=== PATIENT | male | born 1955 | race Caucasian/White ===

== ENCOUNTER 2017-08-13 16:23 | Emergency (ER) | payer MEDICAID ==
[~2017-08-13] VITALS: Ht 177.8 cm; Wt 59.1 kg
[~2017-08-13 16:23] MED LIST: ALBU8HFA PO; ASPI81TA52 PO; FOLI-43 PO; HYDR-569 PO; LOP25T PO; OXCA600T5 PO; PHEN30TA41 PO; PHEN32.43 PO
[2017-08-13 16:57] VITALS: BP 92/64
[2017-08-13] MEDS ORDERED: BUPIVAcaine/PF 2.5 mg/ml (0.25%) 30ml vial IJ ONE (18:30)
[2017-08-13] MEDS ORDERED: DOXY100T2 PO (19:02)
== END 2017-08-13 19:34 | disposition home or self-care (01) ==
LOC: ER 16:23
DX: L02.01 Cutaneous abscess of face (principal); Z86.73 Personal history of transient ischemic attack (TIA), and cerebral infarction without residual deficits; Z79.82 Long term (current) use of aspirin; Z79.899 Other long term (current) drug therapy
CPT/HCPCS: 10060; 99283; A6266; A6449; J3490

== ENCOUNTER 2017-08-16 19:04 | Emergency (ER) | payer MEDICAID ==
[~2017-08-16] VITALS: Ht 177.8 cm; Wt 61.9 kg
[~2017-08-16 19:04] MED LIST changes: +DOXY100T2 PO; -HYDR-569 PO
[2017-08-16] MEDS ORDERED: BACI1PAC7 TOP (19:43)
[2017-08-16] MEDS ORDERED: SULF1TAB49 PO (19:43)
[2017-08-16] MEDS ORDERED: CEPH500C5 PO (19:43)
[2017-08-16] MEDS ORDERED: ketorolac trometh. 30mg/ml inj. IM ONE (19:45)
[2017-08-16 20:04] VITALS: BP 118/58
== END 2017-08-16 20:06 | disposition home or self-care (01) ==
LOC: ER 19:05
DX: Z48.01 Encounter for change or removal of surgical wound dressing (principal); L02.01 Cutaneous abscess of face; F17.210 Nicotine dependence, cigarettes, uncomplicated; Z86.73 Personal history of transient ischemic attack (TIA), and cerebral infarction without residual deficits; Z79.82 Long term (current) use of aspirin; Z79.899 Other long term (current) drug therapy
CPT/HCPCS: 96372; 99283; A6255; A6257; A6266; A6449; J1885

== ENCOUNTER 2019-05-16 14:46 | Emergency (ER) | payer MEDICAID ==
[~2019-05-16] VITALS: Ht 175.3 cm; Wt 64.0 kg
[~2019-05-16 14:46] MED LIST changes: +ALBU0.63 NEB; +LIDOcaine 1% W/epiNEPHrine 1:100,000 20ml vial ONE; +MELO-102 PO; -PHEN32.43 PO
[2019-05-16 15:00] VITALS: BP 115/80
[2019-05-16] MEDS ORDERED: HYDROcodone/acetaminophen 5mg/325mg tablet PO ONE (16:55)
[2019-05-16] MEDS ORDERED: ondansetron 4mg rapidly disintigrating tab PO ONE (16:55)
[2019-05-16] MEDS ORDERED: BACDS PO (17:25)
== END 2019-05-16 17:31 | disposition home or self-care (01) ==
LOC: ER 14:47
DX: L02.01 Cutaneous abscess of face (principal); F03.90 Unspecified dementia, unspecified severity, without behavioral disturbance, psychotic disturbance, mood disturbance, and anxiety; F10.99 Alcohol use, unspecified with unspecified alcohol-induced disorder; Z86.69 Personal history of other diseases of the nervous system and sense organs; Z86.73 Personal history of transient ischemic attack (TIA), and cerebral infarction without residual deficits; Z79.82 Long term (current) use of aspirin; Z79.899 Other long term (current) drug therapy; Y90.9 Presence of alcohol in blood, level not specified
CPT/HCPCS: 10060; 99283

== ENCOUNTER 2019-10-28 17:42 | Emergency (ER) | payer MEDICAID ==
[~2019-10-28] VITALS: Ht 177.8 cm; Wt 72.7 kg
[~2019-10-28 17:42] MED LIST changes: -LIDOcaine 1% W/epiNEPHrine 1:100,000 20ml vial ONE
[2019-10-28 18:29] LABS: BASOPHILS # (AUTO) 0.1 X10'3 (0-0.2); EOSINOPHILS # (AUTO) 0.4 X10'3 (0-0.9); HEMATOCRIT 39.8 % (42.0-52.0); HEMOGLOBIN 13.4 g/dl (14.0-17.9); LYMPHOCYTES # (AUTO) 1.9 X10'3 (1.1-4.8); LYMPHOCYTES % (AUTO) 37.1 % (21-51); MEAN CORPUSCULAR HEMOGLOBIN 32.3 PG (27.0-31.0); MEAN CORPUSCULAR HGB CONC 33.8 g/dL (33.0-36.5); MEAN CORPUSCULAR VOLUME 95.5 FL (78-98); MEAN PLATELET VOLUME 7.1 FL (7.4-10.4); MONOCYTES # (AUTO) 0.5 X10'3 (0-0.9); MONOCYTES % (AUTO) 8.9 % (2-12); NEUTROPHILS # (AUTO) 2.3 X10'3 (1.8-7.7); PLATELET COUNT 269 X10'3 (140-440); RED BLOOD COUNT 4.16 X10'6 (4.70-6.10); RED CELL DISTRIBUTION WIDTH 13.3 % (11.5-14.5); WHITE BLOOD COUNT 5.1 X10'3 (4.5-11.0)
[2019-10-28] MEDS ORDERED: normal saline 1000ml 1,000 ML IV ONE ×2 (18:35→18:50)
[2019-10-28 18:41] LABS: PARTIAL THROMBOPLASTIN TIME 28 SECONDS (22-32)
[2019-10-28 18:45] LABS: ALANINE AMINOTRANSFERASE 15 U/L (12-78); ALBUMIN 3.3 G/DL (3.4-5.0); ALBUMIN/GLOBULIN RATIO 0.8 (1.1-1.5); ALKALINE PHOSPHATASE 114 IU/L (46-116); ANION GAP 5 (8-16); ASPARTATE AMINO TRANSFERASE 14 U/L (10-37); BILIRUBIN,TOTAL 0.1 MG/DL (0.1-1.0); BLOOD UREA NITROGEN 19 MG/DL (7-18); BUN/CREATININE RATIO 22.4 (5.4-32.0); CALCIUM 8.8 MG/DL (8.5-10.1); CHLORIDE 107 MMOL/L (99-107); CREATININE 0.85 MG/DL (0.60-1.10); GLUCOSE 134 MG/DL (70-104); POTASSIUM 4.2 MMOL/L (3.5-5.1); SODIUM 142 MMOL/L (135-145); TOTAL CARBON DIOXIDE 30.3 MMOL/L (24-32); TOTAL PROTEIN 7.5 G/DL (6.4-8.2); eGFR > 90 ML/MIN
[2019-10-28 18:48] LABS: TROPONIN I < 0.04 NG/ML (0.0-0.05)
[2019-10-28] MEDS ORDERED: ketorolac tromethamine 15mg/ml inj. IV ONE (19:15)
[2019-10-28 19:49] LABS: CLARITY,URINE CLEAR (Clear); COLOR,URINE YELLOW (Yellow); GLUCOSE, URINE NEGATIVE (Neg); KETONES,URINE NEGATIVE (Neg); LEUKOCYTE ESTERASE ,URINE NEGATIVE (Neg); NITRITES, URINE NEGATIVE (Neg); OCCULT BLOOD,URINE NEGATIVE (Neg); PROTEIN,URINE NEGATIVE (Neg); UROBILINOGEN,URINE 0.2 E.U/dL (0.2-1.0)
[2019-10-28 19:50] LABS: UA COLLECTION TYPE URINAL
[2019-10-28 19:52] LABS: URINE AMPHETAMINE SCREEN NEGATIVE (Neg); URINE BARBITUATE SCREEN POSITIVE (Neg); URINE BENZODIAZEPINES SCREEN NEGATIVE (Neg); URINE CANNABINOID SCREEN NEGATIVE (Neg); URINE COCAINE SCREEN NEGATIVE (Neg); URINE METHADONE SCREEN NEGATIVE (Neg); URINE OPIATE SCREEN NEGATIVE (Neg); URINE PHENCYCLIDINE SCREEN NEGATIVE (Neg)
[2019-10-28 20:33] VITALS: BP 128/73
== END 2019-10-28 20:57 | disposition home or self-care (01) ==
LOC: ER 17:42
DX: R53.1 Weakness (principal); R51 Headache; R10.9 Unspecified abdominal pain; M54.9 Dorsalgia, unspecified; F03.90 Unspecified dementia, unspecified severity, without behavioral disturbance, psychotic disturbance, mood disturbance, and anxiety; Z86.69 Personal history of other diseases of the nervous system and sense organs; Z86.73 Personal history of transient ischemic attack (TIA), and cerebral infarction without residual deficits; Z79.82 Long term (current) use of aspirin; Z79.899 Other long term (current) drug therapy
CPT/HCPCS: 36415; 70450; 71045; 80053; 80305; 81003; 82948; 83605; 84145; 84484; 85025; 85610; 85730; 87040; 93005; 96374; 99285; J1885; J7030

== ENCOUNTER 2019-11-12 15:55 | Emergency (ER) | payer MEDICAID ==
[~2019-11-12] VITALS: Ht 177.8 cm; Wt 63.0 kg
[2019-11-12 19:43] VITALS: BP 159/66
== END 2019-11-12 20:05 | disposition home or self-care (01) ==
LOC: ER 15:55
DX: M54.5 Low back pain (principal); F03.90 Unspecified dementia, unspecified severity, without behavioral disturbance, psychotic disturbance, mood disturbance, and anxiety; Z86.73 Personal history of transient ischemic attack (TIA), and cerebral infarction without residual deficits; Z79.82 Long term (current) use of aspirin; M54.6 Pain in thoracic spine; Z79.899 Other long term (current) drug therapy; W01.0XXA Fall on same level from slipping, tripping and stumbling without subsequent striking against object, initial encounter; Y93.89 Activity, other specified; Y92.098 Other place in other non-institutional residence as the place of occurrence of the external cause; Y99.9 Unspecified external cause status
CPT/HCPCS: 72128; 72131; 99285

== ENCOUNTER 2020-08-29 17:01 | Emergency (ER) | payer MEDICAID ==
[~2020-08-29] VITALS: Ht 177.8 cm; Wt 61.4 kg
[2020-08-29 17:23] VITALS: BP 138/82
[2020-08-29] MEDS ORDERED: ibuprofen tablet 400 MG TABLET PO ONE (18:55)
--- NOTE | 2020-08-29 19:35 | NUR ---
BREAKING PRIMARY RN- WILL CONT TO MONITOR
[2020-08-29] MEDS ORDERED: HYDROcodone/acetaminophen 5mg/325mg tablet PO ONE (20:00)
== END 2020-08-29 20:25 | disposition home or self-care (01) ==
LOC: ER 17:02
DX: S30.0XXA Contusion of lower back and pelvis, initial encounter (principal); M25.552 Pain in left hip; Z86.73 Personal history of transient ischemic attack (TIA), and cerebral infarction without residual deficits; Z86.69 Personal history of other diseases of the nervous system and sense organs; Z72.89 Other problems related to lifestyle; Z79.82 Long term (current) use of aspirin; Z79.899 Other long term (current) drug therapy; W18.39XA Other fall on same level, initial encounter; Y93.89 Activity, other specified; Y92.89 Other specified places as the place of occurrence of the external cause; Y99.8 Other external cause status
CPT/HCPCS: 73502; 99284

== ENCOUNTER 2021-01-28 15:41 | Emergency (ER) | payer MEDICAID ==
[~2021-01-28] VITALS: Ht 177.8 cm; Wt 65.9 kg
[2021-01-28 17:17] LABS: BASOPHILS # (AUTO) 0.1 X10'3 (0-0.2); EOSINOPHILS # (AUTO) 0.2 X10'3 (0-0.9); EOSINOPHILS % (AUTO) 4.3 % (0-6); HEMATOCRIT 38.6 % (42.0-52.0); HEMOGLOBIN 12.9 g/dl (14.0-17.9); LYMPHOCYTES # (AUTO) 1.6 X10'3 (1.1-4.8); LYMPHOCYTES % (AUTO) 27.5 % (21-51); MEAN CORPUSCULAR HEMOGLOBIN 32.6 PG (27.0-31.0); MEAN CORPUSCULAR HGB CONC 33.5 g/dL (33.0-36.5); MEAN CORPUSCULAR VOLUME 97.4 FL (78-98); MEAN PLATELET VOLUME 7.5 FL (7.4-10.4); MONOCYTES # (AUTO) 0.5 X10'3 (0-0.9); NEUTROPHILS # (AUTO) 3.3 X10'3 (1.8-7.7); NEUTROPHILS % (AUTO) 58.2 % (42-75); PLATELET COUNT 266 X10'3 (140-440); RED BLOOD COUNT 3.97 X10'6 (4.70-6.10); RED CELL DISTRIBUTION WIDTH 14.4 % (11.5-14.5); WHITE BLOOD COUNT 5.7 X10'3 (4.5-11.0)
[2021-01-28 17:27] LABS: ALANINE AMINOTRANSFERASE 12 U/L (12-78); ALBUMIN 3.5 G/DL (3.4-5.0); ALBUMIN/GLOBULIN RATIO 0.9 (1.1-1.5); ALKALINE PHOSPHATASE 143 IU/L (46-116); ANION GAP 9 (8-16); ASPARTATE AMINO TRANSFERASE 15 U/L (10-37); BILIRUBIN,TOTAL 0.1 MG/DL (0.1-1.0); BLOOD UREA NITROGEN 20 MG/DL (7-18); BUN/CREATININE RATIO 30.8 (5.4-32.0); CALCIUM 8.5 MG/DL (8.5-10.1); CHLORIDE 106 MMOL/L (99-107); CREATININE 0.65 MG/DL (0.60-1.10); GLUCOSE 121 MG/DL (70-104); POTASSIUM 4.2 MMOL/L (3.5-5.1); SODIUM 141 MMOL/L (135-145); TOTAL CARBON DIOXIDE 26.4 MMOL/L (24-32); TOTAL PROTEIN 7.6 G/DL (6.4-8.2); eGFR > 90 ML/MIN
[2021-01-28] MEDS ORDERED: normal saline 1000ML IV soln IVB ONE (19:10)
[2021-01-28] MEDS ORDERED: acetaminophen 325mg tablet PO ONE (19:20)
[2021-01-28] MEDS ORDERED: ketorolac tromethamine 15mg/ml inj. IV ONE (19:20)
[2021-01-28 21:11] VITALS: BP 137/87
== END 2021-01-28 21:23 | disposition home or self-care (01) ==
LOC: ER 15:42
DX: E86.0 Dehydration (principal); M79.605 Pain in left leg; M54.89 Other dorsalgia; Z86.73 Personal history of transient ischemic attack (TIA), and cerebral infarction without residual deficits; Z86.69 Personal history of other diseases of the nervous system and sense organs; Z72.89 Other problems related to lifestyle; Z79.82 Long term (current) use of aspirin; Z79.2 Long term (current) use of antibiotics; Z79.899 Other long term (current) drug therapy
CPT/HCPCS: 36415; 71045; 80053; 83605; 84145; 85025; 93005; 96361; 96374; 99285; J1885; J7030

== ENCOUNTER 2021-04-23 14:22 | Emergency (ER) | payer MEDICARE, MEDICAID ==
[~2021-04-23] VITALS: Ht 177.8 cm; Wt 60.4 kg
[~2021-04-23 14:22] MED LIST changes: -PHEN30TA41 PO; +PHEN30TA49 PO
[2021-04-23 15:49] LABS: BASOPHILS # (AUTO) 0.1 X10'3 (0-0.2); BASOPHILS % (AUTO) 0.6 % (0-1); EOSINOPHILS # (AUTO) 0.2 X10'3 (0-0.9); EOSINOPHILS % (AUTO) 2.9 % (0-6); HEMOGLOBIN 12.9 g/dl (14.0-17.9); LYMPHOCYTES # (AUTO) 1.7 X10'3 (1.1-4.8); LYMPHOCYTES % (AUTO) 20.8 % (21-51); MEAN CORPUSCULAR HEMOGLOBIN 32.5 PG (27.0-31.0); MEAN CORPUSCULAR VOLUME 95.6 FL (78-98); MEAN PLATELET VOLUME 7.5 FL (7.4-10.4); MONOCYTES # (AUTO) 0.5 X10'3 (0-0.9); MONOCYTES % (AUTO) 6.2 % (2-12); NEUTROPHILS # (AUTO) 5.7 X10'3 (1.8-7.7); NEUTROPHILS % (AUTO) 69.5 % (42-75); PLATELET COUNT 296 X10'3 (140-440); RED BLOOD COUNT 3.97 X10'6 (4.70-6.10); RED CELL DISTRIBUTION WIDTH 12.7 % (11.5-14.5); WHITE BLOOD COUNT 8.1 X10'3 (4.5-11.0)
[2021-04-23 16:02] LABS: ALANINE AMINOTRANSFERASE 34 U/L (12-78); ALBUMIN 3.2 G/DL (3.4-5.0); ALBUMIN/GLOBULIN RATIO 0.6 (1.1-1.5); ALKALINE PHOSPHATASE 146 IU/L (46-116); ANION GAP 11 (8-16); ASPARTATE AMINO TRANSFERASE 24 U/L (10-37); BILIRUBIN,TOTAL 0.2 MG/DL (0.1-1.0); BLOOD UREA NITROGEN 21 MG/DL (7-18); BUN/CREATININE RATIO 28.4 (5.4-32.0); CALCIUM 8.9 MG/DL (8.5-10.1); CHLORIDE 106 MMOL/L (99-107); CREATININE 0.74 MG/DL (0.60-1.10); GLUCOSE 88 MG/DL (70-104); SODIUM 145 MMOL/L (135-145); TOTAL CARBON DIOXIDE 27.6 MMOL/L (24-32); TOTAL PROTEIN 8.3 G/DL (6.4-8.2); eGFR > 90 ML/MIN
--- NOTE | 2021-04-23 18:26 | NUR ---
bety wallis pt sister and also [facility] [phone]
--- NOTE | 2021-04-23 18:50 | NUR ---
ASSUMED CARE. PT SHOWS NO S/S OF ACUTE DISTRESS AT THIS TIME. PT WAS FOUND STANDING IN DOORWAY AND ASSISTED BACK TO BED AND GIVEN CALL LIGHT.
[2021-04-23 18:55] VITALS: BP 116/80
--- NOTE | 2021-04-23 19:31 | NUR ---
PT PUPILS REMAIN PINPOINT W/ NO MOVEMENT. WILL TO CONT TO EVALUATE
[2021-04-23 19:36] LABS: URINE AMPHETAMINE SCREEN NEGATIVE (Neg); URINE BARBITUATE SCREEN POSITIVE (Neg); URINE BENZODIAZEPINES SCREEN NEGATIVE (Neg); URINE CANNABINOID SCREEN NEGATIVE (Neg); URINE COCAINE SCREEN NEGATIVE (Neg); URINE METHADONE SCREEN NEGATIVE (Neg); URINE OPIATE SCREEN POSITIVE (Neg); URINE PHENCYCLIDINE SCREEN NEGATIVE (Neg)
[2021-04-23 19:40] LABS: UA COLLECTION TYPE NON-SPECIFIED
[2021-04-23 19:43] LABS: CLARITY,URINE CLEAR (Clear); COLOR,URINE YELLOW (Yellow)
[2021-04-23 19:49] LABS: GLUCOSE, URINE NEGATIVE (Neg); KETONES,URINE TRACE mg/dl (Neg); LEUKOCYTE ESTERASE ,URINE NEGATIVE (Neg); NITRITES, URINE NEGATIVE (Neg); OCCULT BLOOD,URINE NEGATIVE (Neg); PROTEIN,URINE TRACE mg/dl (Neg); UROBILINOGEN,URINE 0.2 E.U/dL (0.2-1.0)
[2021-04-23 19:51] LABS: MUCUS STRANDS MODERATE /LPF (Neg); SQUAMOUS EPITHELIAL CELL,UR FEW /LPF (FEW); WBC,URINE 0-4 /HPF (0-4)
[2021-04-23 19:53] LABS: BACTERIA,URINE FEW /HPF (Neg)
== END 2021-04-23 20:24 | disposition home or self-care (01) ==
LOC: ER 14:23
DX: S09.90XA Unspecified injury of head, initial encounter (principal); Z86.73 Personal history of transient ischemic attack (TIA), and cerebral infarction without residual deficits; Z86.69 Personal history of other diseases of the nervous system and sense organs; Z72.89 Other problems related to lifestyle; Z79.2 Long term (current) use of antibiotics; Z79.82 Long term (current) use of aspirin; Z79.899 Other long term (current) drug therapy; W18.30XA Fall on same level, unspecified, initial encounter; Y93.89 Activity, other specified; Y92.89 Other specified places as the place of occurrence of the external cause; Y99.8 Other external cause status
CPT/HCPCS: 36415; 70450; 71045; 72125; 80053; 80305; 81001; 85025; 93005; 99285

== ENCOUNTER 2021-05-20 00:10 | Emergency (ER) | payer MEDICARE, MEDICAID ==
[~2021-05-20] VITALS: Ht 180.3 cm; Wt 72.7 kg
[2021-05-20] MEDS ORDERED: normal saline 1000ML IV soln IVB ONE (01:40)
[2021-05-20 02:30] LABS: BASOPHILS % (AUTO) 0.7 % (0-1); EOSINOPHILS # (AUTO) 0.1 X10'3 (0-0.9); EOSINOPHILS % (AUTO) 1.2 % (0-6); HEMOGLOBIN 11.3 g/dl (14.0-17.9); LYMPHOCYTES # (AUTO) 1.1 X10'3 (1.1-4.8); LYMPHOCYTES % (AUTO) 15.2 % (21-51); MEAN CORPUSCULAR HGB CONC 34.1 g/dL (33.0-36.5); MEAN CORPUSCULAR VOLUME 93.8 FL (78-98); MONOCYTES # (AUTO) 0.7 X10'3 (0-0.9); MONOCYTES % (AUTO) 10.4 % (2-12); NEUTROPHILS # (AUTO) 5.2 X10'3 (1.8-7.7); NEUTROPHILS % (AUTO) 72.5 % (42-75); PLATELET COUNT 545 X10'3 (140-440); RED BLOOD COUNT 3.52 X10'6 (4.70-6.10); RED CELL DISTRIBUTION WIDTH 13.7 % (11.5-14.5); WHITE BLOOD COUNT 7.1 X10'3 (4.5-11.0)
[2021-05-20 02:45] LABS: ALANINE AMINOTRANSFERASE 24 U/L (12-78); ALBUMIN/GLOBULIN RATIO 0.4 (1.1-1.5); ALKALINE PHOSPHATASE 107 IU/L (46-116); ANION GAP 5 (8-16); ASPARTATE AMINO TRANSFERASE 23 U/L (10-37); BILIRUBIN,TOTAL 0.3 MG/DL (0.1-1.0); BLOOD UREA NITROGEN 12 MG/DL (7-18); BUN/CREATININE RATIO 17.4 (5.4-32.0); CALCIUM 8.1 MG/DL (8.5-10.1); CHLORIDE 106 MMOL/L (99-107); CREATININE 0.69 MG/DL (0.60-1.10); GLUCOSE 110 MG/DL (70-104); POTASSIUM 3.3 MMOL/L (3.5-5.1); SODIUM 142 MMOL/L (135-145); TOTAL CARBON DIOXIDE 30.9 MMOL/L (24-32); TOTAL PROTEIN 7.2 G/DL (6.4-8.2); eGFR > 90 ML/MIN
[2021-05-20 03:51] LABS: ELLIPTOCYTES FEW; LARGE PLATELETS FEW; PLATELET ESTIMATE INCREASED; TOTAL CELLS COUNTED 100
[2021-05-20 04:57] LABS: CLARITY,URINE SLIGHTLY CLOUDY (Clear); COLOR,URINE DARK YELLOW (Yellow); UA COLLECTION TYPE STRAIGHT CATH
[2021-05-20 04:58] LABS: GLUCOSE, URINE NEGATIVE (Neg); KETONES,URINE NEGATIVE (Neg); LEUKOCYTE ESTERASE ,URINE NEGATIVE (Neg); NITRITES, URINE NEGATIVE (Neg); OCCULT BLOOD,URINE NEGATIVE (Neg); PROTEIN,URINE 30 mg/dl (Neg)
[2021-05-20 05:02] LABS: CELLULAR CAST 0-4 /LPF (NEGATIVE); MUCUS STRANDS FEW /LPF (Neg); SQUAMOUS EPITHELIAL CELL,UR FEW /LPF (FEW)
[2021-05-20 05:03] LABS: BACTERIA,URINE FEW /HPF (Neg); RBC,URINE 0-2 /HPF (0-2); WBC,URINE 0-4 /HPF (0-4)
[2021-05-20] MEDS ORDERED: TETanus/Pertussis (Acell)/Diphther VAC/PF (Tdap-Adult) 0.5ml syringe IMVAC ONE (06:55)
--- NOTE | 2021-05-20 07:15 | NUR ---
CAREGIVER, DARIO WINTER, , IS HERE FOR CONDITION REPORT ABOUT THE PATIENT. DARIO STATES THAT [place], THE PATIENT IS AT HIS BASELINE, BUT HAS HISTORY OF STROKE LAST YEAR AND HAS RESIDUAL WEAKNESS TO LEFT SIDE OF BODY. DARIO STATES THAT PATIENT IS INCREASINGLY BECOMING DEPENDENT ON CAREGIVERS, DUE TO PAST STROKE, AND INABILITY TO BE COMPLETELY INDEPENDENT WITH TOILETING AND SELF-CARE.
[2021-05-20 08:51] VITALS: BP 101/61
== END 2021-05-20 10:39 | disposition home or self-care (01) ==
LOC: ER 00:11
DX: S00.03XA Contusion of scalp, initial encounter (principal); S00.412A Abrasion of left ear, initial encounter; R53.1 Weakness; R53.83 Other fatigue; R41.82 Altered mental status, unspecified; Z86.73 Personal history of transient ischemic attack (TIA), and cerebral infarction without residual deficits; Z86.69 Personal history of other diseases of the nervous system and sense organs; Z72.89 Other problems related to lifestyle; Z79.82 Long term (current) use of aspirin; Z79.2 Long term (current) use of antibiotics; Z79.899 Other long term (current) drug therapy; W18.30XA Fall on same level, unspecified, initial encounter; Y93.89 Activity, other specified; Y92.89 Other specified places as the place of occurrence of the external cause; Y99.8 Other external cause status
CPT/HCPCS: 36415; 70450; 80053; 81001; 85007; 85025; 90471; 90715; 96361; 99285; J7030

== ENCOUNTER 2021-06-12 21:47 | Inpatient (IN) | payer MEDICARE, MEDICAID ==
[~2021-06-12] VITALS: Ht 177.8 cm; Wt 59.0 kg
[2021-06-12] MEDS ORDERED: acetaminophen 325mg tablet PO STA (21:54)
[2021-06-12] MEDS ORDERED: morphine 4 MG/ML inj SYRINge IV ONE (21:55)
[2021-06-12] MEDS ORDERED: CefTRIAXone 2gm/D5W 50ml BAG 50 ML IV ONE (21:55)
[2021-06-12] MEDS ORDERED: normal saline 1000ML IV soln IV ONE ×2 (21:55→23:20)
[2021-06-12] MEDS ORDERED: azithromycin/NS 500mg/250ml 250 ML IV ONE (21:55)
[2021-06-12] MEDS ORDERED: ipratropium/albuterol 3ml nebule NEB ONE (21:55)
[2021-06-12 23:02] LABS: BASOPHILS % (AUTO) 0.5 % (0-1); EOSINOPHILS # (AUTO) 0.4 X10'3 (0-0.9); EOSINOPHILS % (AUTO) 4.7 % (0-6); HEMOGLOBIN 10.6 g/dl (14.0-17.9); LYMPHOCYTES # (AUTO) 0.4 X10'3 (1.1-4.8); LYMPHOCYTES % (AUTO) 5.5 % (21-51); MEAN PLATELET VOLUME 7.2 FL (7.4-10.4); MONOCYTES # (AUTO) 0.2 X10'3 (0-0.9); NEUTROPHILS % (AUTO) 86.3 % (42-75); PLATELET COUNT 351 X10'3 (140-440); RED CELL DISTRIBUTION WIDTH 14.3 % (11.5-14.5); WHITE BLOOD COUNT 8.1 X10'3 (4.5-11.0)
[2021-06-12 23:18] LABS: ALANINE AMINOTRANSFERASE 15 U/L (12-78); ALBUMIN 2.3 G/DL (3.4-5.0); ALBUMIN/GLOBULIN RATIO 0.4 (1.1-1.5); ALKALINE PHOSPHATASE 107 IU/L (46-116); ANION GAP 6 (8-16); ASPARTATE AMINO TRANSFERASE 26 U/L (10-37); BILIRUBIN,TOTAL 0.2 MG/DL (0.1-1.0); BLOOD UREA NITROGEN 14 MG/DL (7-18); BUN/CREATININE RATIO 17.5 (5.4-32.0); CALCIUM 8.3 MG/DL (8.5-10.1); CHLORIDE 100 MMOL/L (99-107); GLUCOSE 128 MG/DL (70-104); POTASSIUM 3.6 MMOL/L (3.5-5.1); SODIUM 133 MMOL/L (135-145); TOTAL CARBON DIOXIDE 27.2 MMOL/L (24-32); eGFR > 90 ML/MIN
[2021-06-13] MEDS ORDERED: mag hydrox/Alum hydrox/simeth 30ml oral suspension PO PRN (00:25)
[2021-06-13] MEDS ORDERED: bisacodyl 10mg suppository rectal RC PRN (00:25)
[2021-06-13] MEDS ORDERED: acetaminophen 650mg rectal suppository RC PRN (00:25)
[2021-06-13] MEDS ORDERED: acetaminophen 325mg tablet PO PRN ×2 (00:25)
[2021-06-13] MEDS ORDERED: magnesium hydroxide 30ml (MOM) UD suspension PO PRN (00:25)
[2021-06-13] MEDS ORDERED: diphenhydrAMINE 50 mg/ml inj IV PRN (00:25)
[2021-06-13] MEDS ORDERED: diphenhydrAMINE 25mg capsule PO PRN (00:25)
[2021-06-13] MEDS ORDERED: ondansetron/PF 4mg/2ml inj IV PRN (00:25)
[2021-06-13] MEDS: normal saline 1000ml 1,000 ML IV SCH ×3 (00:25→16:24)
[2021-06-13] MEDS ORDERED: ondansetron 4mg rapidly disintigrating tab PO PRN (00:25)
[2021-06-13] MEDS ORDERED: morphine 2 MG/ML inj. syringe IV PRN (00:25)
--- NOTE | 2021-06-13 01:39 | NUR ---
unable to obtain med rec d/t pt unable to remember.
[2021-06-13 01:55] LABS: CREATINE KINASE 108 U/L (39-308); HEMOGLOBIN A1C 5.6 % (4.5-6.2); LIPASE < 50 U/L (73-393); MAGNESIUM 1.6 MG/DL (1.5-2.4); PHOSPHORUS 2.4 MG/DL (2.3-4.5)
[2021-06-13 02:22] LABS: CARBAMAZEPINE (TEGRETOL) < 0.5 UG/ML (4.0-12.0)
[2021-06-13 05:47] LABS: APTT 28 SECONDS (22-32)
[2021-06-13 07:50] LABS: CLARITY,URINE CLEAR (Clear); COLOR,URINE YELLOW (Yellow); GLUCOSE, URINE NEGATIVE (Neg); KETONES,URINE 15 mg/dl (Neg); LEUKOCYTE ESTERASE ,URINE NEGATIVE (Neg); NITRITES, URINE NEGATIVE (Neg); OCCULT BLOOD,URINE NEGATIVE (Neg); PH,URINE 5.5 (4.8-8.0); PROTEIN,URINE TRACE mg/dl (Neg)
[2021-06-13 07:54] LABS: UA COLLECTION TYPE URINAL
[2021-06-13 07:57] LABS: BACTERIA,URINE 2+ /HPF (Neg); MUCUS STRANDS FEW /LPF (Neg); RBC,URINE NONE SEEN /HPF (0-2); SQUAMOUS EPITHELIAL CELL,UR FEW /LPF (FEW); WBC,URINE 0-4 /HPF (0-4)
[2021-06-13] MEDS ORDERED: azithromycin/NS 500mg/250ml 250 ML IV SCH ×2 (08:00→21:00)
[2021-06-13] MEDS: heparin, porcine 5000 units/ml vial SQ SCH ×2 (09:11→22:44)
[2021-06-13] MEDS: docusate sod 100mg capsule PO SCH ×2 (09:11→22:38)
[2021-06-13] MEDS: pantoprazole 40mg Tablet.DR PO SCH (09:12)
[2021-06-13] MEDS ORDERED: DONE5TAB7 PO (10:16)
[2021-06-13] MEDS ORDERED: OXCA600T9 PO (10:16)
[2021-06-13] MEDS ORDERED: NAPR-56 PO (10:16)
[2021-06-13] MEDS ORDERED: GABA300S PO (10:16)
[2021-06-13] MEDS ORDERED: PHEN64.8 PO (10:21)
[2021-06-13] MEDS ORDERED: GABA300C PO (11:03)
[2021-06-13] MEDS ORDERED: ALBU2.5V13 NEB (11:03)
[2021-06-13] MEDS ORDERED: albuterol 2.5 MG/3 ML nebule NEB PRN (12:00)
[2021-06-13] MEDS: oxcarbazepine 150mg tablet PO SCH ×2 (13:42→22:43)
[2021-06-13 16:30] VITALS: BP 140/77
[2021-06-13] MEDS: morphine 2 MG/ML inj. syringe IV PRN ×2 (16:48→22:50)
[2021-06-13 18:00] VITALS: BP 95/56
--- NOTE | 2021-06-13 18:29 | NUR ---
Report given to Quintin MAY, all questions answered at this time. Patient awake in bed watching tv, coughing episodes intermittent. Fever down at this time to 100.0
--- NOTE | 2021-06-13 18:58 | NUR ---
Patient in room MED 308. I have received report from Lesa MAY and had the opportunity to ask questions and assume patient care.
[2021-06-13] MEDS ORDERED: temazepam 15mg capsule PO PRN (21:00)
[2021-06-13 22:00] VITALS: BP 111/46
[2021-06-13] MEDS: donepezil 5mg tablet PO SCH (22:39)
[2021-06-13] MEDS: lactobacillus rhamnosus 10,000 MMU CELLS/CAPSULE PO SCH (22:39)
[2021-06-13] MEDS: gabapentin 300mg capsule PO SCH (22:40)
[2021-06-13] MEDS: CefTRIAXone/D5W-Rocephin 1gm 50 ML IV SCH (22:41)
[2021-06-13] MEDS: naproxen 500mg tablet PO SCH (22:41)
[2021-06-13] MEDS: phenobarbital 30mg tablet PO SCH (22:44)
[2021-06-13] MEDS ORDERED: azithromycin/NS 500mg/250ml 250 ML IV ONE (23:45)
[2021-06-14 02:00] VITALS: BP 107/58
--- NOTE | 2021-06-14 06:15 | NUR ---
Patient in room MED 308. I have received report from Quintin MAY and had the opportunity to ask questions and assume patient care.
[2021-06-14 06:25] LABS: HEMOGLOBIN 9.4 g/dl (14.0-17.9); PLATELET COUNT 301 X10'3 (140-440)
[2021-06-14 06:26] LABS: BASOPHILS % (AUTO) 0.3 % (0-1); EOSINOPHILS # (AUTO) 0.4 X10'3 (0-0.9); EOSINOPHILS % (AUTO) 2.3 % (0-6); LYMPHOCYTES # (AUTO) 1.1 X10'3 (1.1-4.8); LYMPHOCYTES % (AUTO) 7.3 % (21-51); MEAN CORPUSCULAR HEMOGLOBIN 32.1 PG (27.0-31.0); MEAN CORPUSCULAR HGB CONC 33.7 g/dL (33.0-36.5); MEAN CORPUSCULAR VOLUME 95.1 FL (78-98); MEAN PLATELET VOLUME 7.1 FL (7.4-10.4); MONOCYTES % (AUTO) 6.4 % (2-12); NEUTROPHILS # (AUTO) 12.6 X10'3 (1.8-7.7); NEUTROPHILS % (AUTO) 83.7 % (42-75); RED BLOOD COUNT 2.94 X10'6 (4.70-6.10); RED CELL DISTRIBUTION WIDTH 14.5 % (11.5-14.5); WHITE BLOOD COUNT 15.1 X10'3 (4.5-11.0)
[2021-06-14 06:46] LABS: ALANINE AMINOTRANSFERASE 9 U/L (12-78); ALBUMIN 1.6 G/DL (3.4-5.0); ALBUMIN/GLOBULIN RATIO 0.3 (1.1-1.5); ALKALINE PHOSPHATASE 82 IU/L (46-116); ANION GAP 7 (8-16); ASPARTATE AMINO TRANSFERASE 8 U/L (10-37); BILIRUBIN,TOTAL 0.3 MG/DL (0.1-1.0); BLOOD UREA NITROGEN 10 MG/DL (7-18); BUN/CREATININE RATIO 16.1 (5.4-32.0); CALCIUM 7.8 MG/DL (8.5-10.1); CHLORIDE 105 MMOL/L (99-107); CHOL/HDL RATIO 3.1 (0.00-4.99); CHOLESTEROL 108 MG/DL (0-200); CREATININE 0.62 MG/DL (0.60-1.10); GLUCOSE 99 MG/DL (70-104); HDL CHOLESTEROL 35 MG/DL (35-60); LDL CHOLESTEROL 58 MG/DL (50-100); POTASSIUM 3.6 MMOL/L (3.5-5.1); SODIUM 138 MMOL/L (135-145); TOTAL CARBON DIOXIDE 25.6 MMOL/L (24-32); TOTAL PROTEIN 6.4 G/DL (6.4-8.2); TRIGLYCERIDES 43 MG/DL (20-135); eGFR > 90 ML/MIN
--- NOTE | 2021-06-14 06:49 | NUR ---
Problems reprioritized. Patient report given, questions answered & plan of care reviewed with Promise MAY.
[2021-06-14] MEDS: oxcarbazepine 150mg tablet PO SCH ×3 (08:00→22:38)
[2021-06-14] MEDS: phenobarbital 30mg tablet PO SCH ×2 (08:00→23:12)
[2021-06-14] MEDS: folic acid 1mg tablet PO SCH (08:58)
[2021-06-14] MEDS: pantoprazole 40mg Tablet.DR PO SCH (08:59)
[2021-06-14] MEDS: docusate sod 100mg capsule PO SCH ×2 (08:59→22:36)
[2021-06-14] MEDS: lactobacillus rhamnosus 10,000 MMU CELLS/CAPSULE PO SCH ×2 (08:59→22:36)
[2021-06-14] MEDS: naproxen 500mg tablet PO SCH ×2 (08:59→22:35)
[2021-06-14] MEDS: heparin, porcine 5000 units/ml vial SQ SCH ×2 (09:00→22:36)
[2021-06-14] MEDS: HYDROcodone/acetaminophen 5mg/325mg tablet PO PRN ×2 (09:00→16:43)
[2021-06-14] MEDS ORDERED: furosemide 40mg/4ml inj IV ONE (10:35)
[2021-06-14 11:00] VITALS: BP 111/62
[2021-06-14] MEDS: ipratropium/albuterol 3ml nebule NEB SCH ×4 (11:00→23:00)
[2021-06-14 15:00] VITALS: BP 107/62
[2021-06-14] MEDS: methylPREDNISolone sod succ 125mg/2ml vial IV SCH (16:00)
--- NOTE | 2021-06-14 16:12 | NUR ---
PAGER ID: [phone] MESSAGE: Room 308: John Paul Solis: Patient has no access. 4 nurses, including Nayla, have made multiple attempts. We get return and vein blows before cath is completely advanced. He will need a central or PICC tomorrow when staffing is available. Promise [phone]
[2021-06-14] MEDS ORDERED: levoFLOXACIN 500mg tablet PO ONE (17:10)
[2021-06-14] MEDS ORDERED: predniSONE 20 mg tablet PO ONE (17:10)
[2021-06-14 18:00] VITALS: BP 103/63
--- NOTE | 2021-06-14 18:50 | NUR ---
Problems reprioritized. Patient report given, questions answered & plan of care reviewed with Sneha MAY.
[2021-06-14] MEDS: CefTRIAXone/D5W-Rocephin 1gm 50 ML IV SCH (21:00)
[2021-06-14 22:00] VITALS: BP 101/68
[2021-06-14] MEDS: azithromycin/NS 500mg/250ml 250 ML IV SCH (22:00)
--- NOTE | 2021-06-14 22:00 | NUR ---
NEW IV STARTED,INFORMED DR. ROYAL IF HE WANTS TO GIVE ROCEPHIN AND ZITHROMAX TONIGHT,ADVISED TO RE START IN AM.
[2021-06-14] MEDS: gabapentin 300mg capsule PO SCH (22:35)
[2021-06-14] MEDS: donepezil 5mg tablet PO SCH (22:35)
[2021-06-15 02:00] VITALS: BP 103/63
[2021-06-15] MEDS: ipratropium/albuterol 3ml nebule NEB SCH ×6 (02:20→23:06)
[2021-06-15 05:50] LABS: BASOPHILS # (AUTO) 0.1 X10'3 (0-0.2); BASOPHILS % (AUTO) 0.5 % (0-1); EOSINOPHILS % (AUTO) 0 % (0-6); HEMATOCRIT 28.1 % (42.0-52.0); HEMOGLOBIN 9.4 g/dl (14.0-17.9); LYMPHOCYTES # (AUTO) 0.3 X10'3 (1.1-4.8); LYMPHOCYTES % (AUTO) 2.4 % (21-51); MEAN CORPUSCULAR HEMOGLOBIN 31.7 PG (27.0-31.0); MEAN CORPUSCULAR HGB CONC 33.5 g/dL (33.0-36.5); MEAN CORPUSCULAR VOLUME 94.6 FL (78-98); MEAN PLATELET VOLUME 7.8 FL (7.4-10.4); MONOCYTES # (AUTO) 0.4 X10'3 (0-0.9); NEUTROPHILS # (AUTO) 12.9 X10'3 (1.8-7.7); NEUTROPHILS % (AUTO) 94.1 % (42-75); PLATELET COUNT 321 X10'3 (140-440); RED BLOOD COUNT 2.97 X10'6 (4.70-6.10); RED CELL DISTRIBUTION WIDTH 14.5 % (11.5-14.5); WHITE BLOOD COUNT 13.7 X10'3 (4.5-11.0)
[2021-06-15 06:00] VITALS: BP 94/60
[2021-06-15 06:24] LABS: ALANINE AMINOTRANSFERASE 10 U/L (12-78); ALBUMIN 1.6 G/DL (3.4-5.0); ALBUMIN/GLOBULIN RATIO 0.3 (1.1-1.5); ALKALINE PHOSPHATASE 87 IU/L (46-116); ANION GAP 10 (8-16); ASPARTATE AMINO TRANSFERASE 12 U/L (10-37); BILIRUBIN,TOTAL 0.1 MG/DL (0.1-1.0); BLOOD UREA NITROGEN 11 MG/DL (7-18); BUN/CREATININE RATIO 17.2 (5.4-32.0); CALCIUM 8.3 MG/DL (8.5-10.1); CHLORIDE 103 MMOL/L (99-107); CREATININE 0.64 MG/DL (0.60-1.10); GLUCOSE 158 MG/DL (70-104); POTASSIUM 3.7 MMOL/L (3.5-5.1); SODIUM 138 MMOL/L (135-145); TOTAL CARBON DIOXIDE 25.4 MMOL/L (24-32); TOTAL PROTEIN 7.7 G/DL (6.4-8.2); eGFR > 90 ML/MIN
--- NOTE | 2021-06-15 06:52 | NUR ---
Patient in room MED 308. I have received report from YADIRA Hoover and had the opportunity to ask questions and assume patient care.
[2021-06-15] MEDS: methylPREDNISolone sod succ 125mg/2ml vial IV SCH ×3 (09:08→17:01)
[2021-06-15] MEDS: naproxen 500mg tablet PO SCH ×2 (09:09→20:21)
[2021-06-15] MEDS: lactobacillus rhamnosus 10,000 MMU CELLS/CAPSULE PO SCH ×2 (09:10→20:21)
[2021-06-15] MEDS: folic acid 1mg tablet PO SCH (09:11)
[2021-06-15] MEDS: docusate sod 100mg capsule PO SCH ×2 (09:11→20:20)
[2021-06-15] MEDS: pantoprazole 40mg Tablet.DR PO SCH (09:12)
[2021-06-15] MEDS: heparin, porcine 5000 units/ml vial SQ SCH ×2 (09:16→20:20)
[2021-06-15] MEDS: furosemide 40mg/4ml inj IV SCH (09:16)
[2021-06-15] MEDS: phenobarbital 30mg tablet PO SCH ×2 (09:19→20:21)
[2021-06-15] MEDS: oxcarbazepine 150mg tablet PO SCH ×3 (09:28→20:21)
[2021-06-15 11:00] VITALS: BP 109/65
--- NOTE | 2021-06-15 13:05 | NUR ---
Wound care was asked to see patient regarding his right cheek. He has somewhat of a scab appearance to the right cheek. I assessed his inner mouth and it is intact. No open areas noted. The scab is well embedded in his toledo. I feel if the toledo was shaved off it would come off too. Not moist or does not have a look of a tumor to me. No wound care recommendations other that clean with soapy suds and rinse and see if it will loosen off. RECOMMEND: 1. Daily bathing with no rinse skin cleanser. 2. Cream/Lotion to be applied to skin after bathing. 3. Lyn care Q shift and prn soiling followed by with Barrier Cream. 4. Turn patient Q 1-2 hrs and reposition with pillows. 5. Float heels to offload pressure.
[2021-06-15] MEDS: HYDROcodone/acetaminophen 5mg/325mg tablet PO PRN ×2 (13:52→18:02)
[2021-06-15 15:00] VITALS: BP 103/65
[2021-06-15 18:00] VITALS: BP 111/62
--- NOTE | 2021-06-15 18:41 | NUR ---
Problems reprioritized. Patient report given, questions answered & plan of care reviewed with YADIRA Thorpe.
[2021-06-15] MEDS: donepezil 5mg tablet PO SCH (20:20)
[2021-06-15] MEDS: CefTRIAXone/D5W-Rocephin 1gm 50 ML IV SCH (20:20)
[2021-06-15] MEDS: gabapentin 300mg capsule PO SCH (20:20)
[2021-06-15] MEDS: morphine 2 MG/ML inj. syringe IV PRN (20:59)
[2021-06-15 22:00] VITALS: BP 105/63
[2021-06-15] MEDS: azithromycin/NS 500mg/250ml 250 ML IV SCH (23:15)
[2021-06-16] MEDS: methylPREDNISolone sod succ 125mg/2ml vial IV SCH ×3 (01:26→15:48)
[2021-06-16 02:00] VITALS: BP 106/65
[2021-06-16] MEDS: ipratropium/albuterol 3ml nebule NEB SCH ×6 (02:53→23:04)
[2021-06-16 06:32] LABS: BASOPHILS % (AUTO) 0.1 % (0-1); EOSINOPHILS % (AUTO) 0 % (0-6); HEMATOCRIT 28.1 % (42.0-52.0); HEMOGLOBIN 9.2 g/dl (14.0-17.9); LYMPHOCYTES # (AUTO) 0.2 X10'3 (1.1-4.8); LYMPHOCYTES % (AUTO) 1.8 % (21-51); MEAN CORPUSCULAR HEMOGLOBIN 30.9 PG (27.0-31.0); MEAN CORPUSCULAR HGB CONC 32.9 g/dL (33.0-36.5); MEAN PLATELET VOLUME 7.9 FL (7.4-10.4); MONOCYTES # (AUTO) 0.5 X10'3 (0-0.9); MONOCYTES % (AUTO) 4.4 % (2-12); NEUTROPHILS # (AUTO) 10.3 X10'3 (1.8-7.7); NEUTROPHILS % (AUTO) 93.7 % (42-75); PLATELET COUNT 380 X10'3 (140-440); RED BLOOD COUNT 2.99 X10'6 (4.70-6.10)
[2021-06-16 06:33] LABS: ALANINE AMINOTRANSFERASE 12 U/L (12-78); ALBUMIN 1.6 G/DL (3.4-5.0); ALBUMIN/GLOBULIN RATIO 0.3 (1.1-1.5); ALKALINE PHOSPHATASE 86 IU/L (46-116); ANION GAP 8 (8-16); ASPARTATE AMINO TRANSFERASE 13 U/L (10-37); BILIRUBIN,TOTAL 0.2 MG/DL (0.1-1.0); BLOOD UREA NITROGEN 14 MG/DL (7-18); BUN/CREATININE RATIO 18.4 (5.4-32.0); CALCIUM 8.4 MG/DL (8.5-10.1); CHLORIDE 100 MMOL/L (99-107); CREATININE 0.76 MG/DL (0.60-1.10); GLUCOSE 143 MG/DL (70-104); POTASSIUM 3.4 MMOL/L (3.5-5.1); SODIUM 135 MMOL/L (135-145); TOTAL CARBON DIOXIDE 27.1 MMOL/L (24-32); eGFR > 90 ML/MIN
[2021-06-16 07:00] VITALS: BP 116/75
[2021-06-16] MEDS: folic acid 1mg tablet PO SCH (08:00)
[2021-06-16] MEDS: pantoprazole 40mg Tablet.DR PO SCH (08:00)
[2021-06-16] MEDS: phenobarbital 30mg tablet PO SCH ×2 (08:00→20:25)
[2021-06-16] MEDS: lactobacillus rhamnosus 10,000 MMU CELLS/CAPSULE PO SCH ×2 (08:00→20:31)
[2021-06-16] MEDS: docusate sod 100mg capsule PO SCH ×2 (08:00→20:00)
[2021-06-16] MEDS: oxcarbazepine 150mg tablet PO SCH ×3 (08:01→20:26)
[2021-06-16] MEDS: furosemide 40mg/4ml inj IV SCH (08:01)
[2021-06-16] MEDS: heparin, porcine 5000 units/ml vial SQ SCH ×2 (08:11→20:30)
[2021-06-16] MEDS: naproxen 500mg tablet PO SCH ×2 (10:36→20:45)
--- NOTE | 2021-06-16 11:00 | NUR ---
PAGER ID: [phone] MESSAGE: 308B Will, I: K+ 3.4 would you like protocol or 1x dose? thanks, kayleen [phone]
[2021-06-16 11:52] VITALS: BP 93/56
--- NOTE | 2021-06-16 13:34 | NUR ---
PAGER ID: [phone] MESSAGE: 308B Will, I: patient is having a hard time eating meals..coughing and choking through them. currently on mechanical soft diet. would you like speech eval? thanks, kayleen [phone]
--- NOTE | 2021-06-16 13:56 | NUR ---
PAGER ID: [phone] MESSAGE: [id number] Will, I: patient is possibly aspirating. Suction done. Sats are okay. RT is requesting an xray.... thanks, kayleen [phone]
[2021-06-16 15:00] VITALS: BP 91/64
[2021-06-16 18:00] VITALS: BP 91/64
--- NOTE | 2021-06-16 18:25 | NUR ---
Problems reprioritized. Patient report given, questions answered & plan of care reviewed with YADIRA Reed.
--- NOTE | 2021-06-16 18:42 | NUR ---
Patient in room MED 308. I have received report from Dorita MAY and had the opportunity to ask questions and assume patient care.
[2021-06-16] MEDS: azithromycin 250mg tablet PO SCH (20:25)
[2021-06-16] MEDS: gabapentin 300mg capsule PO SCH (20:26)
[2021-06-16] MEDS: donepezil 5mg tablet PO SCH (20:26)
[2021-06-16] MEDS: CefTRIAXone/D5W-Rocephin 1gm 50 ML IV SCH (20:45)
[2021-06-16 22:00] VITALS: BP 93/61
[2021-06-17] MEDS: methylPREDNISolone sod succ 125mg/2ml vial IV SCH ×3 (00:20→16:11)
[2021-06-17 02:00] VITALS: BP 117/71
[2021-06-17] MEDS: ipratropium/albuterol 3ml nebule NEB SCH ×6 (03:04→23:05)
--- NOTE | 2021-06-17 06:01 | NUR ---
Problems reprioritized. Patient report given, questions answered & plan of care reviewed with Yolanda MAY.
[2021-06-17 06:31] LABS: BASOPHILS % (AUTO) 0 % (0-1); EOSINOPHILS % (AUTO) 0 % (0-6); HEMATOCRIT 27.3 % (42.0-52.0); HEMOGLOBIN 9.3 g/dl (14.0-17.9); LYMPHOCYTES # (AUTO) 0.2 X10'3 (1.1-4.8); LYMPHOCYTES % (AUTO) 2.6 % (21-51); MEAN CORPUSCULAR HEMOGLOBIN 31.5 PG (27.0-31.0); MEAN CORPUSCULAR HGB CONC 33.9 g/dL (33.0-36.5); MEAN CORPUSCULAR VOLUME 92.8 FL (78-98); MEAN PLATELET VOLUME 7.3 FL (7.4-10.4); MONOCYTES # (AUTO) 0.5 X10'3 (0-0.9); MONOCYTES % (AUTO) 6.3 % (2-12); NEUTROPHILS # (AUTO) 7.6 X10'3 (1.8-7.7); NEUTROPHILS % (AUTO) 91.1 % (42-75); PLATELET COUNT 436 X10'3 (140-440); RED BLOOD COUNT 2.94 X10'6 (4.70-6.10); RED CELL DISTRIBUTION WIDTH 15.2 % (11.5-14.5); WHITE BLOOD COUNT 8.3 X10'3 (4.5-11.0)
--- NOTE | 2021-06-17 06:32 | NUR ---
Change in staffing...report given to Marlin MAY.
[2021-06-17 06:46] LABS: ALANINE AMINOTRANSFERASE 19 U/L (12-78); ALBUMIN 1.5 G/DL (3.4-5.0); ALBUMIN/GLOBULIN RATIO 0.3 (1.1-1.5); ALKALINE PHOSPHATASE 88 IU/L (46-116); ANION GAP 8 (8-16); ASPARTATE AMINO TRANSFERASE 25 U/L (10-37); BILIRUBIN,TOTAL 0.1 MG/DL (0.1-1.0); BLOOD UREA NITROGEN 18 MG/DL (7-18); BUN/CREATININE RATIO 28.6 (5.4-32.0); CALCIUM 8.5 MG/DL (8.5-10.1); CHLORIDE 101 MMOL/L (99-107); CREATININE 0.63 MG/DL (0.60-1.10); GLUCOSE 131 MG/DL (70-104); POTASSIUM 3.2 MMOL/L (3.5-5.1); SODIUM 140 MMOL/L (135-145); TOTAL CARBON DIOXIDE 30.7 MMOL/L (24-32); TOTAL PROTEIN 7.2 G/DL (6.4-8.2); eGFR > 90 ML/MIN
[2021-06-17 07:00] VITALS: BP 104/66
[2021-06-17] MEDS: phenobarbital 30mg tablet PO SCH ×2 (08:11→20:21)
[2021-06-17] MEDS: docusate sod 100mg capsule PO SCH ×2 (08:11→20:21)
[2021-06-17] MEDS: pantoprazole 40mg Tablet.DR PO SCH (08:11)
[2021-06-17] MEDS: oxcarbazepine 150mg tablet PO SCH ×3 (08:11→20:21)
[2021-06-17] MEDS: lactobacillus rhamnosus 10,000 MMU CELLS/CAPSULE PO SCH ×2 (08:11→20:22)
[2021-06-17] MEDS: furosemide 40mg/4ml inj IV SCH (08:11)
[2021-06-17] MEDS: folic acid 1mg tablet PO SCH (08:11)
[2021-06-17] MEDS: naproxen 500mg tablet PO SCH ×2 (08:12→20:22)
[2021-06-17] MEDS: heparin, porcine 5000 units/ml vial SQ SCH ×2 (08:12→20:24)
--- NOTE | 2021-06-17 09:13 | NUR ---
paged Dr. Lorenzo patients potassium level of 3.2. PAGER ID: [phone] MESSAGE: [id number]-Will- potassium level 3.2. thanks Marlin (47 character message out of a maximum of 240) Close [X]
--- NOTE | 2021-06-17 10:06 | NUR ---
Initial: Pt admit for acute respiratory failure with hypoxemia, acute exacerbation of COPD, PNA, and left rib fracture s/p fall. Pt initially on a mechanical soft diet and eating well with average 71% PO intake throughout LOS, though pt noted to be having a hard time with meals as pt coughing and choking through them per software engineer advisor 06/16 and pt was made NPO. Pt s/p BSS 06/[address] recs pureed food with nectar thick liquids as pt with a delay in swallow reflex and coughs with thin liquids per ST note. Pending first meal since texture modification. Noted LBM CHALK CUTTER per physical assessment. Pt receiving routine bowel care with additional PRN bowel care available though not documented to be given. D/w dietary to send nectar thick prune juice with next meal to assist with bowel regularity. Will continue to follow and monitor need for further nutrition intervention. Recommendations: 1) Continue pureed diet with nectar thick liquids per ST recs; advance to regular diet as medically indicated 2) Routine bowel care; utilize PRN bowel care given no BM since admit 3) Scaled weight this admit; weekly scaled weights thereafter Addendum: 06/17/21 at [address] Amended: Links added.
[2021-06-17] MEDS: HYDROcodone/acetaminophen 5mg/325mg tablet PO PRN ×2 (10:35→20:23)
--- NOTE | 2021-06-17 10:36 | NUR ---
patient complaining of left sided rib area pain. medicated with norco po per orders.
[2021-06-17 11:00] VITALS: BP 101/68
[2021-06-17 15:00] VITALS: BP 112/61
[2021-06-17] MEDS ORDERED: potassium Cl 20 mEq SR tablet PO PRN (16:25)
[2021-06-17] MEDS ORDERED: potassium CL 10mEq/100ml bag 100 ML IV PRN (16:25)
[2021-06-17] MEDS ORDERED: magnesium Cl slow-release 64mg tablet PO PRN (16:25)
[2021-06-17] MEDS ORDERED: magnesium 2GM in 50ml NS 50 ML IV PRN (16:25)
[2021-06-17] MEDS ORDERED: magnesium 4gm in 100ml NS 100 ML IV PRN (16:25)
--- NOTE | 2021-06-17 16:25 | NUR ---
received order for potassium replacement, po potassium administered per orders.
[2021-06-17] MEDS: potassium Cl 20 mEq SR tablet PO PRN (16:31)
[2021-06-17] MEDS: K and/or MAG REPLACEMENT MC SCH ×2 (16:36→20:00)
[2021-06-17 18:00] VITALS: BP 126/88
[2021-06-17] MEDS: gabapentin 300mg capsule PO SCH (20:21)
[2021-06-17] MEDS: donepezil 5mg tablet PO SCH (20:21)
[2021-06-17] MEDS: azithromycin 250mg tablet PO SCH (20:22)
[2021-06-17] MEDS: CefTRIAXone/D5W-Rocephin 1gm 50 ML IV SCH (20:23)
[2021-06-17 22:00] VITALS: BP 127/83
[2021-06-17] MEDS ORDERED: polyethylene glycol 3350 17gm powd pack PO PRN (23:30)
[2021-06-18] MEDS: methylPREDNISolone sod succ 125mg/2ml vial IV SCH ×3 (00:04→17:45)
[2021-06-18 02:00] VITALS: BP 103/68
[2021-06-18] MEDS: ipratropium/albuterol 3ml nebule NEB SCH ×6 (03:00→22:26)
[2021-06-18] MEDS: potassium Cl 20 mEq SR tablet PO PRN (03:35)
--- NOTE | 2021-06-18 05:30 | NUR ---
AM care done. Pt placed on the left side and supported by pillow. Po intake given.
[2021-06-18 05:52] LABS: BASOPHILS % (AUTO) 0 % (0-1); EOSINOPHILS % (AUTO) 0 % (0-6); HEMATOCRIT 27.9 % (42.0-52.0); HEMOGLOBIN 9.3 g/dl (14.0-17.9); LYMPHOCYTES # (AUTO) 0.3 X10'3 (1.1-4.8); LYMPHOCYTES % (AUTO) 4.6 % (21-51); MEAN CORPUSCULAR HEMOGLOBIN 31.5 PG (27.0-31.0); MEAN CORPUSCULAR HGB CONC 33.4 g/dL (33.0-36.5); MEAN CORPUSCULAR VOLUME 94.2 FL (78-98); MONOCYTES # (AUTO) 0.3 X10'3 (0-0.9); MONOCYTES % (AUTO) 4.8 % (2-12); NEUTROPHILS # (AUTO) 5.1 X10'3 (1.8-7.7); NEUTROPHILS % (AUTO) 90.6 % (42-75); PLATELET COUNT 413 X10'3 (140-440); RED BLOOD COUNT 2.96 X10'6 (4.70-6.10); RED CELL DISTRIBUTION WIDTH 15.4 % (11.5-14.5); WHITE BLOOD COUNT 5.7 X10'3 (4.5-11.0)
[2021-06-18 06:01] LABS: ALANINE AMINOTRANSFERASE 27 U/L (12-78); ALBUMIN 1.6 G/DL (3.4-5.0); ALBUMIN/GLOBULIN RATIO 0.3 (1.1-1.5); ALKALINE PHOSPHATASE 89 IU/L (46-116); ANION GAP 7 (8-16); ASPARTATE AMINO TRANSFERASE 32 U/L (10-37); BILIRUBIN,TOTAL 0.1 MG/DL (0.1-1.0); BLOOD UREA NITROGEN 19 MG/DL (7-18); BUN/CREATININE RATIO 28.8 (5.4-32.0); CALCIUM 8.6 MG/DL (8.5-10.1); CHLORIDE 101 MMOL/L (99-107); CREATININE 0.66 MG/DL (0.60-1.10); GLUCOSE 131 MG/DL (70-104); SODIUM 140 MMOL/L (135-145); TOTAL CARBON DIOXIDE 32.2 MMOL/L (24-32); TOTAL PROTEIN 7.2 G/DL (6.4-8.2); eGFR > 90 ML/MIN
[2021-06-18 06:30] VITALS: BP 113/79
[2021-06-18] MEDS: K and/or MAG REPLACEMENT MC SCH ×2 (08:00→20:00)
[2021-06-18] MEDS: oxcarbazepine 150mg tablet PO SCH ×3 (08:00→20:00)
[2021-06-18] MEDS: phenobarbital 30mg tablet PO SCH ×2 (09:23→20:00)
[2021-06-18] MEDS: docusate sod 100mg capsule PO SCH ×2 (09:23→20:00)
[2021-06-18] MEDS: pantoprazole 40mg Tablet.DR PO SCH (09:25)
[2021-06-18] MEDS: folic acid 1mg tablet PO SCH (09:25)
[2021-06-18] MEDS: lactobacillus rhamnosus 10,000 MMU CELLS/CAPSULE PO SCH ×2 (09:25→20:00)
[2021-06-18] MEDS: naproxen 500mg tablet PO SCH ×2 (09:25→20:00)
[2021-06-18] MEDS: heparin, porcine 5000 units/ml vial SQ SCH ×2 (09:28→20:34)
[2021-06-18] MEDS: furosemide 40mg/4ml inj IV SCH (09:28)
[2021-06-18 10:30] VITALS: BP 116/74
[2021-06-18] MEDS: piperacillin/tazo 3.375gm/50ml 50 ML IV SCH ×2 (11:00→17:45)
--- NOTE | 2021-06-18 11:51 | NUR ---
PAGER ID: [phone] MESSAGE: Room 308. Will. Per Rustam with speech, keep NPO and he will re-assess tomorrow. What about his medications PO? Thanks, Yolanda [phone]
--- NOTE | 2021-06-18 12:21 | NUR ---
Problems reprioritized. Patient report given, questions answered & plan of care reviewed with YADIRA Giang.
--- NOTE | 2021-06-18 13:01 | NUR ---
PAGER ID: [phone] MESSAGE: [id number]. Pharmacy says we need a neuro consult to switch from oral Trileptal to Keppra. Padmaja MAY [phone]
[2021-06-18 14:00] VITALS: BP 106/76
--- NOTE | 2021-06-18 18:37 | NUR ---
Incontinence care provided. Worked with PT. Up to bedside chair, back to bed. NPO per /Dr. Lorenzo. Call light in place. Patient free from injuries.
--- NOTE | 2021-06-18 18:47 | NUR ---
Problems reprioritized. Patient report given, questions answered & plan of care reviewed with Salud MAY.
[2021-06-18] MEDS ORDERED: levetiracetam inj 500 MG in normal saline 100ml IV soln 95 ML IV SCH (20:00)
[2021-06-18] MEDS: azithromycin 250mg tablet PO SCH (20:00)
[2021-06-18] MEDS: donepezil 5mg tablet PO SCH (20:08)
[2021-06-18] MEDS: gabapentin 300mg capsule PO SCH (20:08)
[2021-06-18 22:00] VITALS: BP 119/64
[2021-06-19] MEDS: piperacillin/tazo 3.375gm/50ml 50 ML IV SCH ×3 (01:47→17:24)
[2021-06-19 02:00] VITALS: BP 125/76
[2021-06-19] MEDS: ipratropium/albuterol 3ml nebule NEB SCH ×5 (02:17→20:46)
[2021-06-19 06:00] VITALS: BP 119/68
[2021-06-19 06:36] LABS: POTASSIUM 4.3 MMOL/L (3.5-5.1)
[2021-06-19] MEDS: K and/or MAG REPLACEMENT MC SCH ×2 (06:50→20:00)
--- NOTE | 2021-06-19 06:51 | NUR ---
Patient in room MED 308. I have received report from YADIRA MEDINA, and had the opportunity to ask questions and assume patient care.
[2021-06-19] MEDS: oxcarbazepine 150mg tablet PO SCH ×2 (08:00→12:43)
[2021-06-19] MEDS ORDERED: levetiracetam inj 500 MG in normal saline 100ml IV soln 100 ML IV SCH (08:00)
--- NOTE | 2021-06-19 08:21 | NUR ---
PAGE SENT PAGER ID: [phone] MESSAGE: 308B, DONAL HERNANDEZ, PT FAILED SWALLOW EVAL. PT NPO SINCE 06/18., COULD WE LOOK INTO NUTRITION, HYDRATION . PO MEDS HELD. THANK YOU, MONTRELL [phone]
[2021-06-19] MEDS: furosemide 40mg/4ml inj IV SCH (08:30)
[2021-06-19] MEDS: methylPREDNISolone sod succ 125mg/2ml vial IV SCH ×3 (08:32→17:25)
[2021-06-19] MEDS: heparin, porcine 5000 units/ml vial SQ SCH ×2 (08:33→22:23)
[2021-06-19 10:00] VITALS: BP 108/72
[2021-06-19] MEDS ORDERED: acetaminophen 325mg/10.15ml oral unit dose solution NG PRN (11:57)
[2021-06-19] MEDS: phenobarbital 30mg tablet PO SCH (11:58)
[2021-06-19] MEDS: lactobacillus rhamnosus 10,000 MMU CELLS/CAPSULE PO SCH (12:01)
[2021-06-19] MEDS ORDERED: temazepam 15mg capsule NG PRN (12:01)
[2021-06-19] MEDS: naproxen 500mg tablet PO SCH (12:02)
[2021-06-19] MEDS ORDERED: magnesium hydroxide 30ml (MOM) UD suspension NG PRN (12:04)
[2021-06-19] MEDS ORDERED: mag hydrox/Alum hydrox/simeth 30ml oral suspension NG PRN (12:04)
[2021-06-19] MEDS ORDERED: POTASSIUM BICARB 20meq eff tab 20 MEQ TABLET.EFF NG PRN ×2 (12:05→12:06)
[2021-06-19] MEDS ORDERED: polyethylene glycol 3350 17gm powd pack NG PRN (12:06)
--- NOTE | 2021-06-19 12:14 | NUR ---
PAGE TO DIETARY 308B, DONAL HERNANDEZ, PT FAILED SWALLOW STUDY,NPO, NG TUBE PLACED. AWAITING TF ORDERS. THANK YOU, MONTRELL [phone]
--- NOTE | 2021-06-19 12:28 | NUR ---
TF consult: Pt failed f/u BSS with ST 06/18. Notified by RN that NG tube has been placed and it is NOT a Corpak, see TF recommendations below. Still no documented BM since admit. Pt receiving routine bowel care and received first dose of PRN Miralax 06/18 per EMR. Will continue to follow closely and make recommendations as appropriate. Recommendations: 1) Continuous Jevity 1.2 via NGT with goal rate of 75 mL/hr to provide 1800 mL total volume/day, 2160 kcal, 100 g protein, and 1453 mL water 2) Monitor for a scaled weight and adjust TF recs as appropriate 3) Additional 120 mL water flush Q4H; monitor serum Na and need to adjust 4) Prealbumin q Tuesday/ 5) Daily scaled weights 6) Advance PO diet to regular as medically indicated per ST recs 7) Continue TF with PO diet advancement until pt able to consistently tolerate at least 65% PO intake 8) Routine bowel care; utilize PRN bowel care given no documented BM since admit (06/13) Addendum: 06/19/21 at [address] Amended: Links added.
[2021-06-19] MEDS: HYDROcodone/acetaminophen 5mg/325mg tablet PO PRN (12:43)
[2021-06-19 14:00] VITALS: BP 103/68
[2021-06-19] MEDS ORDERED: naproxen 500mg tablet NG SCH (15:52)
[2021-06-19] MEDS ORDERED: ondansetron 4mg rapidly disintigrating tab NG PRN (15:53)
[2021-06-19] MEDS ORDERED: diphenhydrAMINE 25 MG/10 ML UD oral solution NG PRN (15:55)
--- NOTE | 2021-06-19 16:11 | NUR ---
TUBE FEED, JEVITY 1.2 STARTED AT 35ML/HR.
--- NOTE | 2021-06-19 17:10 | NUR ---
TUBE FEED PAUSED FOR PROCEDURE. LINE FLUSHED.
[2021-06-19] MEDS: thiamine 100mg tablet NG SCH (17:25)
--- NOTE | 2021-06-19 18:30 | NUR ---
Problems reprioritized. Patient report given, questions answered & plan of care reviewed with YADIRA LOTT.
[2021-06-19 20:00] VITALS: BP 107/70
[2021-06-19] MEDS ORDERED: iohexol 350MG/ML 100ml bottle IV ONE (22:00)
[2021-06-19] MEDS: docusate sodium 100mg/10ml UD cup NG SCH (22:22)
[2021-06-19] MEDS: lactobacillus rhamnosus 10,000 MMU CELLS/CAPSULE NG SCH (22:23)
[2021-06-19] MEDS: azithromycin 200mg/5ml oral suspension 15ml bottle NG SCH (22:23)
[2021-06-19] MEDS: gabapentin 300mg capsule NG SCH (22:23)
[2021-06-19] MEDS: donepezil 5mg tablet NG SCH (22:24)
[2021-06-19] MEDS: oxcarbazepine 150mg tablet NG SCH (22:24)
[2021-06-19] MEDS: phenobarbital 30mg tablet NG SCH (22:25)
[2021-06-19 23:00] VITALS: BP 117/73
[2021-06-20] VITALS (10 sets, daily range): BP systolic 99–114; BP diastolic 62–71
[2021-06-20] MEDS: ipratropium/albuterol 3ml nebule NEB SCH ×7 (00:02→23:33)
[2021-06-20] MEDS: piperacillin/tazo 3.375gm/50ml 50 ML IV SCH ×3 (00:20→16:37)
[2021-06-20] MEDS: methylPREDNISolone sod succ 125mg/2ml vial IV SCH ×3 (00:23→16:36)
[2021-06-20] MEDS: albuterol 2.5 MG/3 ML nebule NEB SCH ×5 (00:30→20:00)
--- NOTE | 2021-06-20 06:46 | NUR ---
Patient in room MED 308. I have received report from YADIRA LOTT, and had the opportunity to ask questions and assume patient care.
[2021-06-20 07:27] LABS: MAGNESIUM 2.4 MG/DL (1.5-2.4); POTASSIUM 4.2 MMOL/L (3.5-5.1)
[2021-06-20] MEDS: K and/or MAG REPLACEMENT MC SCH ×2 (08:00→18:31)
[2021-06-20] MEDS: docusate sodium 100mg/10ml UD cup NG SCH ×2 (08:00→20:29)
[2021-06-20] MEDS: furosemide 40mg/4ml inj IV SCH (09:15)
[2021-06-20] MEDS: lactobacillus rhamnosus 10,000 MMU CELLS/CAPSULE NG SCH ×2 (09:17→20:29)
[2021-06-20] MEDS: phenobarbital 30mg tablet NG SCH ×2 (09:18→20:29)
[2021-06-20] MEDS: thiamine 100mg tablet NG SCH (09:18)
[2021-06-20] MEDS: folic acid 1mg tablet NG SCH (09:18)
[2021-06-20] MEDS: oxcarbazepine 150mg tablet NG SCH ×3 (09:18→20:30)
--- NOTE | 2021-06-20 09:29 | NUR ---
TF, JEVITY 1.2 INCREASED TO 55 ML/HR. GR=35, 120 FREE WATER FLUSH, 30ML WATER WITH MEDS.
[2021-06-20] MEDS ORDERED: fentaNYL/PF 50MCG/1 ML 2ML syringe ONE (11:04)
[2021-06-20] MEDS ORDERED: LIDOcaine 1% (10mg/ml) 2ml vial ONE (11:27)
[2021-06-20] MEDS: HYDROcodone/acetaminophen 5mg/325mg tablet PO PRN (12:52)
[2021-06-20] MEDS: lansoprazole 15mg solutab NG SCH (12:52)
--- NOTE | 2021-06-20 16:04 | NUR ---
PAGE SENT PAGER ID: [phone] MESSAGE: 308B, DONAL HERNANDEZ, UNABLE TO DRAW BF FROM CHEST TUBE, OUT OF SCOPE OF PRACTICE PER CN. IT'S AN IR PROCEDURE. LET ME KNOW HOW I CAN HELP. THANK YOU, MONTRELL Caldwell [phone]
--- NOTE | 2021-06-20 17:40 | NUR ---
PT'S GR HAVE BEEN 30 - 35 MLS. TF INCREASED TO THE GOAL OF 75 ML/HR.
--- NOTE | 2021-06-20 18:27 | NUR ---
Problems reprioritized. Patient report given, questions answered & plan of care reviewed with YADIRA BOUDREAUX.
[2021-06-20] MEDS: azithromycin 200mg/5ml oral suspension 15ml bottle NG SCH (20:29)
[2021-06-20] MEDS: gabapentin 300mg capsule NG SCH (20:30)
[2021-06-20] MEDS: donepezil 5mg tablet NG SCH (20:30)
[2021-06-21] MEDS: piperacillin/tazo 3.375gm/50ml 50 ML IV SCH ×2 (00:31→08:21)
[2021-06-21] MEDS: methylPREDNISolone sod succ 125mg/2ml vial IV SCH ×3 (00:31→16:22)
[2021-06-21 02:00] VITALS: BP 108/65
[2021-06-21] MEDS: albuterol 2.5 MG/3 ML nebule NEB SCH ×4 (02:00→20:00)
[2021-06-21] MEDS: ipratropium/albuterol 3ml nebule NEB SCH ×6 (03:39→23:25)
[2021-06-21] MEDS: HYDROcodone/acetaminophen 5mg/325mg tablet PO PRN ×3 (04:34→20:13)
[2021-06-21 06:00] VITALS: BP 109/56
--- NOTE | 2021-06-21 06:13 | NUR ---
Problems reprioritized. Patient report given, questions answered & plan of care reviewed with YADIRA Gomez.
--- NOTE | 2021-06-21 06:38 | NUR ---
Patient in room MED 308. I have received report from YADIRA BOUDREAUX, and had the opportunity to ask questions and assume patient care.
[2021-06-21 06:57] LABS: BASOPHILS % (AUTO) 0.1 % (0-1); EOSINOPHILS % (AUTO) 0 % (0-6); HEMATOCRIT 30.6 % (42.0-52.0); HEMOGLOBIN 10.2 g/dl (14.0-17.9); LYMPHOCYTES # (AUTO) 0.6 X10'3 (1.1-4.8); LYMPHOCYTES % (AUTO) 8.1 % (21-51); MEAN CORPUSCULAR HGB CONC 33.3 g/dL (33.0-36.5); MEAN PLATELET VOLUME 6.8 FL (7.4-10.4); MONOCYTES # (AUTO) 0.2 X10'3 (0-0.9); MONOCYTES % (AUTO) 3.6 % (2-12); NEUTROPHILS % (AUTO) 88.2 % (42-75); PLATELET COUNT 484 X10'3 (140-440); RED BLOOD COUNT 3.29 X10'6 (4.70-6.10); RED CELL DISTRIBUTION WIDTH 15.4 % (11.5-14.5); WHITE BLOOD COUNT 6.8 X10'3 (4.5-11.0)
[2021-06-21 07:15] LABS: ALANINE AMINOTRANSFERASE 22 U/L (12-78); ALBUMIN 1.6 G/DL (3.4-5.0); ALBUMIN/GLOBULIN RATIO 0.3 (1.1-1.5); ALKALINE PHOSPHATASE 98 IU/L (46-116); ANION GAP 3 (8-16); ASPARTATE AMINO TRANSFERASE 18 U/L (10-37); BILIRUBIN,TOTAL 0.1 MG/DL (0.1-1.0); BLOOD UREA NITROGEN 21 MG/DL (7-18); BUN/CREATININE RATIO 29.2 (5.4-32.0); CALCIUM 8.8 MG/DL (8.5-10.1); CHLORIDE 96 MMOL/L (99-107); CREATININE 0.72 MG/DL (0.60-1.10); GLUCOSE 149 MG/DL (70-104); MAGNESIUM 2.3 MG/DL (1.5-2.4); PHOSPHORUS 2.6 MG/DL (2.3-4.5); POTASSIUM 4.6 MMOL/L (3.5-5.1); SODIUM 133 MMOL/L (135-145); TOTAL CARBON DIOXIDE 34.1 MMOL/L (24-32); eGFR > 90 ML/MIN
[2021-06-21] MEDS: K and/or MAG REPLACEMENT MC SCH ×2 (08:00→18:59)
[2021-06-21] MEDS: furosemide 40mg/4ml inj IV SCH (08:19)
[2021-06-21] MEDS: lactobacillus rhamnosus 10,000 MMU CELLS/CAPSULE NG SCH ×2 (08:22→20:11)
[2021-06-21] MEDS: phenobarbital 30mg tablet NG SCH ×2 (08:22→20:12)
[2021-06-21] MEDS: folic acid 1mg tablet NG SCH (08:23)
[2021-06-21] MEDS: docusate sodium 100mg/10ml UD cup NG SCH ×2 (08:23→20:11)
[2021-06-21] MEDS: oxcarbazepine 150mg tablet NG SCH ×3 (08:23→20:12)
[2021-06-21] MEDS: lansoprazole 15mg solutab NG SCH (08:23)
--- NOTE | 2021-06-21 08:51 | NUR ---
PAGE SENT PAGER ID: [phone] MESSAGE: 319B, KAVIN BAKER, POSITIVE NASAL MRSA. THANK YOU, PATRICIA [phone] Addendum: 06/21/21 at 0852 by Patricia Stein RN WRONG PT
[2021-06-21 10:00] VITALS: BP 95/64
--- NOTE | 2021-06-21 10:04 | NUR ---
Malnutrition/TF consult: Pt already on TF and tolerating at goal rate with GRV WNL. Pt reports wt loss with decreased appetite per malnutrition risk screen with RN. Per MD note pt alert and oriented but lethargic. First scaled wt this admit is relatively stable with scaled wt hx in EMR. While on a PO diet pt was eating well with average 71% PO intake meeting estimated nutrient needs, which is now being met with TF. Pt documented with severe muscle and no edema. Pt appears well developed well nourished per H&P and ED report. Pt currently lacks a minimum of two criteria for malnutrition. Pt still with no documented BM since admit though receiving routine bowel care with PRN bowel care available last given 06/18. Will continue to follow. Recommendations: 1) Continuous Jevity 1.2 via NGT with goal rate of 75 mL/hr to provide 1800 mL total volume/day, 2160 kcal, 100 g protein, and 1453 mL water 2) Additional 120 mL water flush Q4H; monitor serum Na and need to adjust 3) Prealbumin q Tuesday/ 4) Daily scaled weights 5) Advance PO diet to regular as medically indicated per ST recs 6) IF PO diet is advanced, continue TF until pt able to consistently tolerate at least 65% PO intake 7) Routine bowel care; utilize PRN bowel care given no documented BM since admit (06/13) Addendum: 06/21/21 at [address] Amended: Links added.
[2021-06-21 11:42] LABS: BFSOURCE LEFT PLEURAL FLD
[2021-06-21] MEDS: thiamine 100mg tablet NG SCH (12:45)
[2021-06-21] MEDS: heparin, porcine 5000 units/ml vial SQ SCH ×2 (12:46→20:12)
[2021-06-21 12:52] LABS: GLUCOSE,BODY FLUID 11 MG/DL; TOTAL PROTEIN,BODY FLUID 5.1 G/DL
[2021-06-21 13:08] LABS: LDH,BODY FLUID 10437 U/L
[2021-06-21 14:00] VITALS: BP 103/70
[2021-06-21 14:44] LABS: NEUTROPHILS,BODY FLUID 100 %
[2021-06-21 14:45] LABS: BFAPPEAR CLOUDY
[2021-06-21 14:46] LABS: BF RBC COUNT 2938 /CU MM; BF WBC COUNT 55750 /CU MM (0-1000); BFCOLOR YELLOW; BFVOLUME 2.5 ML
--- NOTE | 2021-06-21 17:02 | NUR ---
PAGE SENT PAGER ID: [phone] MESSAGE: 308B, DONAL HERNANDEZ, Kim 6 HR BLOOD GLUCOSE CHECKS D/T TUBE FEEDING PLEASE. THANK YOU, MONTRELL Caldwell [phone]
[2021-06-21 18:00] VITALS: BP 112/79
--- NOTE | 2021-06-21 18:14 | NUR ---
Problems reprioritized. Patient report given, questions answered & plan of care reviewed with YADIRA BOUDREAUX.
[2021-06-21] MEDS: gabapentin 300mg capsule NG SCH (20:11)
[2021-06-21] MEDS: donepezil 5mg tablet NG SCH (20:11)
[2021-06-21] MEDS ORDERED: azithromycin 200mg/5ml oral suspension 15ml bottle NG SCH (20:17)
[2021-06-21 22:00] VITALS: BP 117/77
[2021-06-21] MEDS: vancomycin/NS 1 GM ADD-VANTAGE 250 ML IV SCH (23:30)
[2021-06-22] MEDS: vancomycin/NS 1 GM ADD-VANTAGE 250 ML IV SCH ×3 (00:07→22:30)
[2021-06-22] MEDS: piperacillin/tazo 3.375gm/50ml 50 ML IV SCH ×3 (00:07→16:59)
[2021-06-22] MEDS ORDERED: dextrose ORAL solution 15 GM/59 ML bottle NG PRN ×2 (00:40)
[2021-06-22] MEDS ORDERED: glucagon, human recombinant 1mg kit SUBCUT PRN (00:40)
[2021-06-22] MEDS ORDERED: dextrose 50%-water 50ml dispensing syringe IV PRN ×2 (00:40)
[2021-06-22] MEDS ORDERED: insulin Lispro (HumaLOG) vial - multi-dose SQ SCH (00:40)
[2021-06-22 02:00] VITALS: BP 105/69
[2021-06-22] MEDS: albuterol 2.5 MG/3 ML nebule NEB SCH ×4 (03:37→19:06)
[2021-06-22] MEDS: ipratropium/albuterol 3ml nebule NEB SCH ×6 (03:37→23:45)
[2021-06-22] MEDS: HYDROcodone/acetaminophen 5mg/325mg tablet PO PRN ×3 (05:29→23:41)
[2021-06-22 06:00] VITALS: BP 110/64
--- NOTE | 2021-06-22 06:46 | NUR ---
Patient in room MED 308. I have received report from YADIRA BOUDREAUX and had the opportunity to ask questions and assume patient care.
[2021-06-22 06:57] LABS: BASOPHILS % (AUTO) 0.1 % (0-1); EOSINOPHILS % (AUTO) 0.2 % (0-6); HEMATOCRIT 31.4 % (42.0-52.0); HEMOGLOBIN 10.6 g/dl (14.0-17.9); LYMPHOCYTES # (AUTO) 1.2 X10'3 (1.1-4.8); LYMPHOCYTES % (AUTO) 12.2 % (21-51); MEAN CORPUSCULAR HEMOGLOBIN 31.2 PG (27.0-31.0); MEAN CORPUSCULAR HGB CONC 33.9 g/dL (33.0-36.5); MEAN CORPUSCULAR VOLUME 91.8 FL (78-98); MEAN PLATELET VOLUME 6.8 FL (7.4-10.4); MONOCYTES # (AUTO) 0.5 X10'3 (0-0.9); MONOCYTES % (AUTO) 4.6 % (2-12); NEUTROPHILS # (AUTO) 8.5 X10'3 (1.8-7.7); NEUTROPHILS % (AUTO) 82.9 % (42-75); PLATELET COUNT 558 X10'3 (140-440); RED BLOOD COUNT 3.41 X10'6 (4.70-6.10); RED CELL DISTRIBUTION WIDTH 15.2 % (11.5-14.5); WHITE BLOOD COUNT 10.3 X10'3 (4.5-11.0)
[2021-06-22 07:16] LABS: ALANINE AMINOTRANSFERASE 28 U/L (12-78); ALBUMIN 1.7 G/DL (3.4-5.0); ALBUMIN/GLOBULIN RATIO 0.3 (1.1-1.5); ALKALINE PHOSPHATASE 100 IU/L (46-116); ANION GAP 5 (8-16); ASPARTATE AMINO TRANSFERASE 25 U/L (10-37); BILIRUBIN,TOTAL 0.2 MG/DL (0.1-1.0); BLOOD UREA NITROGEN 21 MG/DL (7-18); BUN/CREATININE RATIO 28.4 (5.4-32.0); CALCIUM 8.6 MG/DL (8.5-10.1); CHLORIDE 94 MMOL/L (99-107); CREATININE 0.74 MG/DL (0.60-1.10); GLUCOSE 101 MG/DL (70-104); MAGNESIUM 2.1 MG/DL (1.5-2.4); PHOSPHORUS 2.4 MG/DL (2.3-4.5); POTASSIUM 4.1 MMOL/L (3.5-5.1); PREALBUMIN 19.6 MG/DL (19-36); SODIUM 132 MMOL/L (135-145); TOTAL CARBON DIOXIDE 33.5 MMOL/L (24-32); TOTAL PROTEIN 8.3 G/DL (6.4-8.2); eGFR > 90 ML/MIN
[2021-06-22] MEDS: docusate sodium 100mg/10ml UD cup NG SCH ×2 (07:29→20:06)
[2021-06-22] MEDS: lactobacillus rhamnosus 10,000 MMU CELLS/CAPSULE NG SCH ×2 (07:29→20:06)
[2021-06-22] MEDS: lansoprazole 15mg solutab NG SCH (07:30)
[2021-06-22] MEDS: phenobarbital 30mg tablet NG SCH ×2 (07:30→20:06)
[2021-06-22] MEDS: oxcarbazepine 150mg tablet NG SCH ×3 (07:30→21:20)
[2021-06-22] MEDS: furosemide 40mg/4ml inj IV SCH (07:31)
[2021-06-22] MEDS: thiamine 100mg tablet NG SCH (07:31)
[2021-06-22] MEDS: folic acid 1mg tablet NG SCH (07:31)
[2021-06-22] MEDS: methylPREDNISolone sod succ 125mg/2ml vial IV SCH (07:31)
[2021-06-22] MEDS: heparin, porcine 5000 units/ml vial SQ SCH ×2 (07:33→20:07)
[2021-06-22] MEDS: K and/or MAG REPLACEMENT MC SCH ×2 (08:00→19:08)
--- NOTE | 2021-06-22 08:49 | NUR ---
PAGER ID: [phone] MESSAGE: 308- John Paul Solis- c/o painful sore throat. ok to order chlorosepctic spray? thank you- John [phone]
[2021-06-22] MEDS: Chloraseptic (Phenol) Spray 177ml MM PRN ×3 (09:38→21:45)
[2021-06-22 11:00] VITALS: BP 106/65
[2021-06-22] MEDS ORDERED: VANCOMYCIN LEVEL IV ONE (11:30)
--- NOTE | 2021-06-22 13:31 | NUR ---
PRESSURE ULCER EDUCATION: DEFINITION: A pressure ulcer is an area of skin that breaks down when you stay in one position too long. The constant pressure against the skin reduces the blood flow to that area and the affected tissue dies. CAUSES: "Being bedridden or in a wheelchair "Fragile skin "Having a chronic condition, such as diabetes or vascular disease "Inability to move certain parts of your body without assistance "Older age "Incontinence of urine or stool SYMPTOMS: "A reddened area that DOES NOT turn white when pressed on - this can be the beginning of a pressure ulcer "A blister, deep sore or a crater - these can be advanced pressure ulcers FIRST AID: "Relieve the pressure on this area "Keep the area clean and dry "Call your primary doctor if you see any of the above symptoms "DO NOT massage the area "DO NOT use a donut shaped or ring shaped pillow- these actually interfere with the blood flow and cause complications PREVENTION: "Check for pressure ulcers everyday "Change position at least every two hours to relieve pressure "Use items that help relieve pressure- pillows, sheepskin, foam padding, and powders. "Keep skin clean and dry "Eat healthy well balanced meals "Exercise daily IF YOU SEE ANY OF THESE SYMPTOMS WHILE IN THE HOSPITAL - TELL YOUR NURSE IMMEDIATELY. IF YOU SEE ANY OF THESE SYMPTOMS WHILE AT HOME OR HAVE ANY QUESTIONS OR CONCERNS ABOUT PRESSURE ULCERS - CALL YOUR PRIMARY DOCTOR IMMEDIATELY. Addendum: 06/22/21 at 1332 by Keyla Escoto RN Amended: Links added.
--- NOTE | 2021-06-22 14:00 | NUR ---
Patient up in recliner blowing nose and accidentally pulled out NG tube. New NG placed to right nares. Patient tolerated well.
[2021-06-22 15:45] VITALS: BP 107/65
--- NOTE | 2021-06-22 18:28 | NUR ---
Problems reprioritized. Patient report given, questions answered & plan of care reviewed with YADIRA Myrick.
[2021-06-22 18:30] VITALS: BP 108/66
[2021-06-22] MEDS: gabapentin 300mg capsule NG SCH (21:20)
[2021-06-22] MEDS: donepezil 5mg tablet NG SCH (21:20)
[2021-06-23] VITALS (7 sets, daily range): BP systolic 92–115; BP diastolic 55–73
[2021-06-23] MEDS: piperacillin/tazo 3.375gm/50ml 50 ML IV SCH ×3 (00:05→18:02)
[2021-06-23] MEDS: albuterol 2.5 MG/3 ML nebule NEB SCH (03:45)
[2021-06-23] MEDS: ipratropium/albuterol 3ml nebule NEB SCH ×5 (03:46→20:37)
[2021-06-23 05:58] LABS: BASOPHILS % (AUTO) 0.2 % (0-1); EOSINOPHILS # (AUTO) 0.1 X10'3 (0-0.9); EOSINOPHILS % (AUTO) 0.6 % (0-6); HEMATOCRIT 33.5 % (42.0-52.0); HEMOGLOBIN 11.3 g/dl (14.0-17.9); LYMPHOCYTES # (AUTO) 1.2 X10'3 (1.1-4.8); LYMPHOCYTES % (AUTO) 13.6 % (21-51); MEAN CORPUSCULAR HEMOGLOBIN 31.3 PG (27.0-31.0); MEAN CORPUSCULAR HGB CONC 33.7 g/dL (33.0-36.5); MEAN CORPUSCULAR VOLUME 92.9 FL (78-98); MEAN PLATELET VOLUME 6.8 FL (7.4-10.4); MONOCYTES # (AUTO) 0.5 X10'3 (0-0.9); NEUTROPHILS # (AUTO) 7.2 X10'3 (1.8-7.7); NEUTROPHILS % (AUTO) 79.6 % (42-75); PLATELET COUNT 539 X10'3 (140-440); RED CELL DISTRIBUTION WIDTH 15.6 % (11.5-14.5)
[2021-06-23 06:23] LABS: ALANINE AMINOTRANSFERASE 28 U/L (12-78); ALBUMIN 1.7 G/DL (3.4-5.0); ALBUMIN/GLOBULIN RATIO 0.2 (1.1-1.5); ALKALINE PHOSPHATASE 107 IU/L (46-116); ANION GAP 7 (8-16); ASPARTATE AMINO TRANSFERASE 25 U/L (10-37); BILIRUBIN,TOTAL 0.2 MG/DL (0.1-1.0); BLOOD UREA NITROGEN 25 MG/DL (7-18); BUN/CREATININE RATIO 32.5 (5.4-32.0); CALCIUM 8.8 MG/DL (8.5-10.1); CHLORIDE 95 MMOL/L (99-107); CREATININE 0.77 MG/DL (0.60-1.10); GLUCOSE 125 MG/DL (70-104); PHOSPHORUS 2.7 MG/DL (2.3-4.5); POTASSIUM 4.2 MMOL/L (3.5-5.1); SODIUM 134 MMOL/L (135-145); TOTAL CARBON DIOXIDE 31.7 MMOL/L (24-32); TOTAL PROTEIN 8.6 G/DL (6.4-8.2); eGFR > 90 ML/MIN
--- NOTE | 2021-06-23 06:32 | NUR ---
Problems reprioritized. Patient report given, questions answered & plan of care reviewed with Dorita. Addendum: 06/23/21 at 0632 by Eloy Heller RN Amended: Links added.
[2021-06-23] MEDS: K and/or MAG REPLACEMENT MC SCH ×2 (08:00→20:00)
[2021-06-23] MEDS: thiamine 100mg tablet NG SCH (08:16)
[2021-06-23] MEDS: oxcarbazepine 150mg tablet NG SCH ×3 (08:16→20:14)
[2021-06-23] MEDS: lactobacillus rhamnosus 10,000 MMU CELLS/CAPSULE NG SCH ×2 (08:16→20:14)
[2021-06-23] MEDS: phenobarbital 30mg tablet NG SCH ×2 (08:16→20:14)
[2021-06-23] MEDS: lansoprazole 15mg solutab NG SCH (08:16)
[2021-06-23] MEDS: folic acid 1mg tablet NG SCH (08:16)
[2021-06-23] MEDS: docusate sodium 100mg/10ml UD cup NG SCH ×2 (08:16→20:14)
[2021-06-23] MEDS: heparin, porcine 5000 units/ml vial SQ SCH ×2 (08:17→20:14)
[2021-06-23] MEDS: methylPREDNISolone sod succ 125mg/2ml vial IV SCH (08:29)
[2021-06-23] MEDS: furosemide 40mg/4ml inj IV SCH (08:29)
[2021-06-23] MEDS: Chloraseptic (Phenol) Spray 177ml MM PRN (08:45)
[2021-06-23] MEDS ORDERED: VANCOMYCIN LEVEL IV ONE (11:30)
[2021-06-23] MEDS: acetaminophen 325mg/10.15ml oral unit dose solution NG PRN (12:51)
--- NOTE | 2021-06-23 13:00 | NUR ---
At the bedside with Dr. Lorenzo discussing with the patient hospice/palliative care vs. peg tube/placement. Patient states multiple times that he would not want a peg tube feeding him and he would not want to live in a senior living. He would rather be able to eat whatever he wants and be at home with his family while being made comfortable. During this conversation, patient was alert and oriented x3. Dr. Lorenzo attempted phone call to the sister Nubia to discuss this conversation but she did not answer.
[2021-06-23 14:56] LABS: PLATELET ESTIMATE INCREASED; TOTAL CELLS COUNTED 100
[2021-06-23] MEDS: vancomycin inj. 750 MG in normal saline 250ml IV soln 250 ML IV SCH ×2 (15:10→23:58)
[2021-06-23] MEDS: bisacodyl 10mg suppository rectal RC SCH (15:13)
--- NOTE | 2021-06-23 16:27 | NUR ---
PAGER ID: [phone] MESSAGE: Farhad Solis, I: Sister Lidia is calling again asking to speak with you whenever its convenient. thank you!
--- NOTE | 2021-06-23 17:27 | NUR ---
patients brother Anton is at the bedside. He is in agreement that the patient is completely alert and oriented and capable of making his own decisions. Telephone number is [phone].
--- NOTE | 2021-06-23 17:32 | NUR ---
Page sent to ... 308 Will, I: Brothalessandra Walton is at the bedside requesting a family meeting whenever that can be arranged. thanks!
--- NOTE | 2021-06-23 18:28 | NUR ---
Problems reprioritized. Patient report given, questions answered & plan of care reviewed with YADIRA Thorpe.
[2021-06-23] MEDS: donepezil 5mg tablet NG SCH (20:14)
[2021-06-23] MEDS: gabapentin 300mg capsule NG SCH (20:14)
[2021-06-24] MEDS: ipratropium/albuterol 3ml nebule NEB SCH ×5 (00:17→20:24)
[2021-06-24] MEDS: piperacillin/tazo 3.375gm/50ml 50 ML IV SCH ×3 (01:26→16:00)
[2021-06-24 06:00] VITALS: BP 102/62
[2021-06-24 06:31] LABS: BASOPHILS % (AUTO) 0.3 % (0-1); EOSINOPHILS # (AUTO) 0.1 X10'3 (0-0.9); EOSINOPHILS % (AUTO) 0.6 % (0-6); HEMATOCRIT 30.6 % (42.0-52.0); HEMOGLOBIN 10.4 g/dl (14.0-17.9); LYMPHOCYTES # (AUTO) 1.1 X10'3 (1.1-4.8); LYMPHOCYTES % (AUTO) 12.9 % (21-51); MEAN CORPUSCULAR HEMOGLOBIN 31.3 PG (27.0-31.0); MEAN CORPUSCULAR HGB CONC 34.1 g/dL (33.0-36.5); MEAN CORPUSCULAR VOLUME 91.7 FL (78-98); MEAN PLATELET VOLUME 6.7 FL (7.4-10.4); MONOCYTES # (AUTO) 0.6 X10'3 (0-0.9); MONOCYTES % (AUTO) 6.5 % (2-12); NEUTROPHILS # (AUTO) 7.1 X10'3 (1.8-7.7); NEUTROPHILS % (AUTO) 79.7 % (42-75); PLATELET COUNT 542 X10'3 (140-440); RED BLOOD COUNT 3.33 X10'6 (4.70-6.10); RED CELL DISTRIBUTION WIDTH 15.3 % (11.5-14.5); WHITE BLOOD COUNT 8.9 X10'3 (4.5-11.0)
[2021-06-24 07:11] LABS: ALANINE AMINOTRANSFERASE 28 U/L (12-78); ALBUMIN 1.6 G/DL (3.4-5.0); ALBUMIN/GLOBULIN RATIO 0.2 (1.1-1.5); ALKALINE PHOSPHATASE 97 IU/L (46-116); ANION GAP 4 (8-16); ASPARTATE AMINO TRANSFERASE 19 U/L (10-37); BILIRUBIN,TOTAL 0.2 MG/DL (0.1-1.0); BLOOD UREA NITROGEN 23 MG/DL (7-18); BUN/CREATININE RATIO 31.5 (5.4-32.0); CALCIUM 8.7 MG/DL (8.5-10.1); CHLORIDE 94 MMOL/L (99-107); CREATININE 0.73 MG/DL (0.60-1.10); GLUCOSE 130 MG/DL (70-104); PHOSPHORUS 2.8 MG/DL (2.3-4.5); POTASSIUM 3.9 MMOL/L (3.5-5.1); SODIUM 129 MMOL/L (135-145); TOTAL CARBON DIOXIDE 30.6 MMOL/L (24-32); TOTAL PROTEIN 8.1 G/DL (6.4-8.2); eGFR > 90 ML/MIN
[2021-06-24] MEDS: K and/or MAG REPLACEMENT MC SCH ×2 (08:00→20:00)
[2021-06-24] MEDS: oxcarbazepine 150mg tablet NG SCH ×3 (08:00→20:30)
[2021-06-24 08:31] LABS: PLATELET ESTIMATE INCREASED; TOTAL CELLS COUNTED 100
[2021-06-24 08:32] LABS: GIANT PLATELET FEW
[2021-06-24] MEDS: methylPREDNISolone sod succ 125mg/2ml vial IV SCH (09:32)
[2021-06-24] MEDS: furosemide 40mg/4ml inj IV SCH (09:32)
[2021-06-24] MEDS: folic acid 1mg tablet NG SCH (09:32)
[2021-06-24] MEDS: thiamine 100mg tablet NG SCH (09:32)
[2021-06-24] MEDS: lansoprazole 15mg solutab NG SCH (09:33)
[2021-06-24] MEDS: lactobacillus rhamnosus 10,000 MMU CELLS/CAPSULE NG SCH ×2 (09:33→20:29)
[2021-06-24] MEDS: heparin, porcine 5000 units/ml vial SQ SCH ×4 (09:33→20:37)
[2021-06-24] MEDS: docusate sodium 100mg/10ml UD cup NG SCH ×2 (09:33→09:34)
[2021-06-24] MEDS: phenobarbital 30mg tablet NG SCH ×2 (09:33→20:29)
[2021-06-24] MEDS: bisacodyl 10mg suppository rectal RC SCH (09:34)
--- NOTE | 2021-06-24 09:55 | NUR ---
Reassessment: Pt continues to fail BSS with ST. Pending possible PEG placement per MD notes. Pt continues receiving TF via NGT and pt tolerating with GRV WNL. Noted serum Na is low at 129 MMOL/L which has been downtrending since 06/21, recommend discontinuing water flushes at this time, d/w RN. LBM 06/23 documented as moderate in size, first BM since admit. Pt receiving routine Colace and started on routine Dulcolax suppository 06/23. PRN bowel care also available. Will continue to follow closely. Recommendations: 1) Continuous Jevity 1.2 via NGT with goal rate of 75 mL/hr to provide 1800 mL total volume/day, 2160 kcal, 100 g protein, and 1453 mL water 2) Discontinue 120 mL water flush Q4H given low serum Na; continue to monitor serum Na and need to adjust 3) Prealbumin q Tuesday/ 4) Daily scaled weights 5) Advance PO diet to regular as medically indicated per ST recs 6) IF PO diet is advanced, continue TF until pt able to consistently tolerate at least 65% PO intake 7) Routine bowel care; utilize PRN bowel care given previous constipation Addendum: 06/24/21 at [address] Amended: Links added.
[2021-06-24] MEDS ORDERED: ipratropium/albuterol 3ml nebule NEB PRN (10:45)
[2021-06-24 11:00] VITALS: BP 100/62
[2021-06-24 15:00] VITALS: BP 120/76
[2021-06-24] MEDS: vancomycin inj. 750 MG in normal saline 250ml IV soln 250 ML IV SCH (15:49)
--- NOTE | 2021-06-24 18:35 | NUR ---
Patient in room MED 308. I have received report from YADIRA Giang and had the opportunity to ask questions and assume patient care.
--- NOTE | 2021-06-24 18:43 | NUR ---
Patient repositioned multiple times for incontinence care. Condom catheter was placed, working well. Multiple bowel movements, foam dressing on sacral area removed as incontinent stool kept soiling it, night RN aware. Patient chest tube connected back to suction per PA orders, little to no drainage observed. IV antibiotics schedules off as iv access was lost. Brother Davy was at bedside and verbalizes patient agreeing with PEG tube and would like for him to be contacted. Night RN informed about Humalog instead of Humalin being sent for patient. Patient has not met protocol, but we want to be sure he has the right insulin if he needs it.
--- NOTE | 2021-06-24 18:48 | NUR ---
Problems reprioritized. Patient report given, questions answered & plan of care reviewed with Debi MAY.
[2021-06-24] MEDS ORDERED: insulin regular, human U-100 3ml vial - multi-dose SQ SCH (18:55)
[2021-06-24] MEDS: gabapentin 300mg capsule NG SCH (20:30)
[2021-06-24] MEDS: donepezil 5mg tablet NG SCH (20:30)
--- NOTE | 2021-06-24 21:46 | NUR ---
Pt is a hard stick was able to find vein in foot. Dr. Kelly ordered ok IV in foot.
[2021-06-24 22:00] VITALS: BP 116/66
[2021-06-25] MEDS: piperacillin/tazo 3.375gm/50ml 50 ML IV SCH ×3 (00:26→16:26)
[2021-06-25] MEDS ORDERED: VANCOMYCIN LEVEL IV ONE (00:30)
--- NOTE | 2021-06-25 01:19 | NUR ---
Pt is hard stick. Was only able to draw labs for the Vanco. Spoke with Wade who said that is fine as long as it isn't hemolyzed. Lab can draw the other labs at the routine time.
[2021-06-25 02:00] VITALS: BP 98/59
[2021-06-25] MEDS: ipratropium/albuterol 3ml nebule NEB SCH ×4 (02:54→20:41)
[2021-06-25] MEDS: HYDROcodone/acetaminophen 5mg/325mg tablet PO PRN ×2 (05:22→21:19)
--- NOTE | 2021-06-25 05:30 | NUR ---
Pt atrium for chest tube was replaced due to spillage into the C chamber. 50ml out serous
[2021-06-25] MEDS: vancomycin inj. 750 MG in normal saline 250ml IV soln 250 ML IV SCH (05:50)
[2021-06-25 06:00] VITALS: BP 106/65
--- NOTE | 2021-06-25 06:42 | NUR ---
Problems reprioritized. Patient report given, questions answered & plan of care reviewed with YADIRA Retana.
[2021-06-25 06:44] LABS: BASOPHILS % (AUTO) 0.2 % (0-1); EOSINOPHILS # (AUTO) 0.1 X10'3 (0-0.9); EOSINOPHILS % (AUTO) 0.5 % (0-6); HEMATOCRIT 31.9 % (42.0-52.0); HEMOGLOBIN 10.8 g/dl (14.0-17.9); LYMPHOCYTES # (AUTO) 1.1 X10'3 (1.1-4.8); LYMPHOCYTES % (AUTO) 10.9 % (21-51); MEAN CORPUSCULAR HEMOGLOBIN 30.8 PG (27.0-31.0); MEAN CORPUSCULAR HGB CONC 33.8 g/dL (33.0-36.5); MEAN CORPUSCULAR VOLUME 91.3 FL (78-98); MONOCYTES # (AUTO) 0.7 X10'3 (0-0.9); MONOCYTES % (AUTO) 6.6 % (2-12); NEUTROPHILS # (AUTO) 8.4 X10'3 (1.8-7.7); NEUTROPHILS % (AUTO) 81.8 % (42-75); PLATELET COUNT 565 X10'3 (140-440); RED CELL DISTRIBUTION WIDTH 15.2 % (11.5-14.5); WHITE BLOOD COUNT 10.2 X10'3 (4.5-11.0)
[2021-06-25] MEDS: docusate sodium 100mg/10ml UD cup NG SCH ×2 (08:00→20:00)
[2021-06-25] MEDS: bisacodyl 10mg suppository rectal RC SCH (08:00)
[2021-06-25] MEDS: K and/or MAG REPLACEMENT MC SCH ×2 (08:00→20:00)
[2021-06-25 08:36] LABS: ALBUMIN 1.6 G/DL (3.4-5.0); ANION GAP 5 (8-16); BILIRUBIN,TOTAL 0.2 MG/DL (0.1-1.0); BLOOD UREA NITROGEN 23 MG/DL (7-18); BUN/CREATININE RATIO 31.9 (5.4-32.0); CALCIUM 8.7 MG/DL (8.5-10.1); CHLORIDE 95 MMOL/L (99-107); CREATININE 0.72 MG/DL (0.60-1.10); GLUCOSE 143 MG/DL (70-104); POTASSIUM 3.9 MMOL/L (3.5-5.1); SODIUM 131 MMOL/L (135-145); TOTAL CARBON DIOXIDE 30.6 MMOL/L (24-32); eGFR > 90 ML/MIN
[2021-06-25 08:37] LABS: ALANINE AMINOTRANSFERASE 32 U/L (12-78); ALBUMIN/GLOBULIN RATIO 0.3 (1.1-1.5); ALKALINE PHOSPHATASE 98 IU/L (46-116); ASPARTATE AMINO TRANSFERASE 31 U/L (10-37); PREALBUMIN 19.2 MG/DL (19-36)
[2021-06-25] MEDS: phenobarbital 30mg tablet NG SCH ×2 (09:05→21:25)
[2021-06-25] MEDS: oxcarbazepine 150mg tablet NG SCH ×3 (09:05→21:20)
[2021-06-25] MEDS: lactobacillus rhamnosus 10,000 MMU CELLS/CAPSULE NG SCH ×2 (09:06→21:24)
[2021-06-25] MEDS: folic acid 1mg tablet NG SCH (09:06)
[2021-06-25] MEDS: lansoprazole 15mg solutab NG SCH (09:06)
[2021-06-25] MEDS: methylPREDNISolone sod succ/PF 40mg inj. IV SCH (09:06)
[2021-06-25] MEDS: thiamine 100mg tablet NG SCH (09:06)
[2021-06-25] MEDS: furosemide 40mg/4ml inj IV SCH (09:07)
--- NOTE | 2021-06-25 09:20 | NUR ---
PAGER ID: [phone] MESSAGE: John Paul Solis 308 How long will pt. be on atb? very hard stick. foot iv placed last night- now infiltrated. Is PICC appropriate? PICC RN leaves at 2pm today. Thank you, Lainey [phone]
--- NOTE | 2021-06-25 09:40 | NUR ---
Paged RT for postual drainage/ percussion.
[2021-06-25 11:30] VITALS: BP 111/70
--- NOTE | 2021-06-25 12:19 | NUR ---
Chest tube to wall suction per report. This was changed yesterday. Addendum: 06/25/21 at 1222 by Lainey Rajput RN Amended: Links added.
[2021-06-25 15:00] VITALS: BP 97/62
--- NOTE | 2021-06-25 15:06 | NUR ---
PAGER ID: [phone] MESSAGE: John Paul Solis 308 I didn't think to hold tube feeding until now. Called GI lab to let them know. They will update me on if they will do procedure today or not after calling MD Leavitt. Sorry! Lainey [phone]
--- NOTE | 2021-06-25 15:36 | NUR ---
Pt. pulled out his NG tube.
--- NOTE | 2021-06-25 15:43 | NUR ---
PAGER ID: [phone] MESSAGE: John Paul Solis 308 GI lab called. They will place PEG in AM. HOLD TUBE FEED order in place for 0000. Would you like to order IV dextrose/fluids for pt. for 0000 when he becomes NPO? Lainey [phone]
--- NOTE | 2021-06-25 16:31 | NUR ---
New NG tube placed. Pt. tolerated well.
--- NOTE | 2021-06-25 17:56 | NUR ---
CT form faxed
[2021-06-25 18:00] VITALS: BP 100/66
--- NOTE | 2021-06-25 18:29 | NUR ---
Gave report to Shy MAY.
--- NOTE | 2021-06-25 18:41 | NUR ---
Patient in room MED 308. I have received report from Lainey MAY and had the opportunity to ask questions and assume patient care.
[2021-06-25] MEDS ORDERED: iohexol 300mg/ml 100ml inj. ONE (18:55)
[2021-06-25] MEDS: heparin, porcine 5000 units/ml vial SQ SCH (20:00)
[2021-06-25] MEDS: donepezil 5mg tablet NG SCH (21:20)
[2021-06-25] MEDS: gabapentin 300mg capsule NG SCH (21:20)
[2021-06-25 22:00] VITALS: BP 106/56
[2021-06-25] MEDS: dextrose 5%-1/2 normal saline 1,000 ML IV SCH (23:58)
[2021-06-26] VITALS (15 sets, daily range): BP systolic 83–133; BP diastolic 54–84
--- NOTE | 2021-06-26 | NUR ---
TUBE FEEDING STOPPED, FLUIDS HUNG-PEG TUBE IN AM PER MD ORDER. HEATHER RN
[2021-06-26] MEDS: piperacillin/tazo 3.375gm/50ml 50 ML IV SCH ×3 (00:06→17:00)
[2021-06-26] MEDS: ipratropium/albuterol 3ml nebule NEB SCH ×4 (02:45→20:09)
--- NOTE | 2021-06-26 02:51 | NUR ---
blood glucose 77, will spot check prior to shift change to monitor for hypoglycemia. emma
--- NOTE | 2021-06-26 05:14 | NUR ---
SPOT CHECK GLUCOSE -87 AT 0400 AM
--- NOTE | 2021-06-26 06:27 | NUR ---
Problems reprioritized. Patient report given, questions answered & plan of care reviewed with FARAZ MAY.
[2021-06-26] MEDS: K and/or MAG REPLACEMENT MC SCH ×2 (08:00→20:00)
[2021-06-26] MEDS: docusate sodium 100mg/10ml UD cup NG SCH ×2 (08:00→20:00)
[2021-06-26] MEDS: methylPREDNISolone sod succ/PF 40mg inj. IV SCH (08:03)
[2021-06-26] MEDS: furosemide 40mg/4ml inj IV SCH (08:03)
[2021-06-26] MEDS: heparin, porcine 5000 units/ml vial SQ SCH ×2 (08:04→20:34)
[2021-06-26] MEDS: lansoprazole 15mg solutab NG SCH (08:05)
[2021-06-26] MEDS: thiamine 100mg tablet NG SCH (08:05)
[2021-06-26] MEDS: oxcarbazepine 150mg tablet NG SCH ×3 (08:05→20:37)
[2021-06-26] MEDS: lactobacillus rhamnosus 10,000 MMU CELLS/CAPSULE NG SCH ×2 (08:05→20:34)
[2021-06-26] MEDS: folic acid 1mg tablet NG SCH (08:05)
[2021-06-26] MEDS: phenobarbital 30mg tablet NG SCH ×2 (08:05→20:33)
[2021-06-26] MEDS ORDERED: fentaNYL/PF 50MCG/1 ML 2ML syringe ONE (10:45)
[2021-06-26] MEDS ORDERED: MIDAZolam 1 MG/ML 5ML VIAL ONE (10:45)
[2021-06-26] MEDS: acetaminophen 325mg/10.15ml oral unit dose solution NG PRN (13:53)
[2021-06-26] MEDS: dextrose 5%-1/2 normal saline 1,000 ML IV SCH (14:18)
[2021-06-26] MEDS: HYDROcodone/acetaminophen 5mg/325mg tablet PO PRN ×2 (15:42→20:38)
--- NOTE | 2021-06-26 16:01 | NUR ---
Reassessment: Pt previously tolerating TF at goal rate with GRV WNL. Pt NPO at midnight in anticipation for PEG placement today. Per stick inserter TF currently running at 30 mL/hr. Recommend resuming goal rate as medically indicated. Noted pt continues receiving water flushes, no serum Na lab today though serum Na improved 06/25 from 06/24 . LBM 06/25. Will continue to follow and make recommendations as appropriate. Recommendations: 1) Continuous Jevity 1.2 via PEG with goal rate of 75 mL/hr to provide 1800 mL total volume/day, 2160 kcal, 100 g protein, and 1453 mL water 2) Discontinue 120 mL water flush Q4H given low serum Na; continue to monitor serum Na and need to adjust 3) Prealbumin q Tuesday/ 4) Daily scaled weights 5) Advance PO diet to regular as medically indicated per ST recs 6) IF PO diet is advanced, continue TF until pt able to consistently tolerate at least 65% PO intake 7) Routine bowel care; utilize PRN bowel care given previous constipation Addendum: 06/26/21 at [address] Amended: Links added.
--- NOTE | 2021-06-26 18:09 | NUR ---
Patient in room MED 308. I have received report from FARAZ MAY and had the opportunity to ask questions and assume patient care.
--- NOTE | 2021-06-26 18:10 | NUR ---
Problems reprioritized. Patient report given, questions answered & plan of care reviewed with YADIRA Begum.
[2021-06-26] MEDS: donepezil 5mg tablet NG SCH (20:38)
[2021-06-26] MEDS: gabapentin 300mg capsule NG SCH (20:40)
[2021-06-27] MEDS: piperacillin/tazo 3.375gm/50ml 50 ML IV SCH ×4 (00:06→23:48)
[2021-06-27 02:00] VITALS: BP 110/66
[2021-06-27] MEDS: ipratropium/albuterol 3ml nebule NEB SCH ×4 (02:51→20:28)
[2021-06-27] MEDS: HYDROcodone/acetaminophen 5mg/325mg tablet PO PRN ×3 (03:44→20:46)
[2021-06-27] MEDS: dextrose 5%-1/2 normal saline 1,000 ML IV SCH ×2 (04:36→18:54)
--- NOTE | 2021-06-27 06:45 | NUR ---
Problems reprioritized. Patient report given, questions answered & plan of care reviewed with NIVIA MAY.
--- NOTE | 2021-06-27 07:05 | NUR ---
Patient in room MED 308. I have received report from Shy MAY and had the opportunity to ask questions and assume patient care.
[2021-06-27] MEDS: docusate sodium 100mg/10ml UD cup NG SCH ×2 (08:00→20:00)
[2021-06-27] MEDS: K and/or MAG REPLACEMENT MC SCH ×2 (08:00→20:00)
[2021-06-27] MEDS: methylPREDNISolone sod succ/PF 40mg inj. IV SCH (09:27)
[2021-06-27] MEDS: furosemide 40mg/4ml inj IV SCH (09:27)
[2021-06-27] MEDS: heparin, porcine 5000 units/ml vial SQ SCH ×2 (09:27→20:48)
[2021-06-27 09:28] LABS: EOSINOPHILS # (AUTO) 0.1 X10'3 (0-0.9); MONOCYTES # (AUTO) 0.5 X10'3 (0-0.9)
[2021-06-27] MEDS: phenobarbital 30mg tablet NG SCH ×2 (09:28→20:48)
[2021-06-27] MEDS: thiamine 100mg tablet NG SCH (09:28)
[2021-06-27] MEDS: lansoprazole 15mg solutab NG SCH (09:28)
[2021-06-27] MEDS: oxcarbazepine 150mg tablet NG SCH ×3 (09:28→20:39)
[2021-06-27] MEDS: folic acid 1mg tablet NG SCH (09:28)
[2021-06-27] MEDS: lactobacillus rhamnosus 10,000 MMU CELLS/CAPSULE NG SCH ×2 (09:28→20:46)
[2021-06-27 09:30] LABS: BASOPHILS % (AUTO) 0.5 % (0-1); EOSINOPHILS % (AUTO) 0.6 % (0-6); HEMATOCRIT 30.1 % (42.0-52.0); HEMOGLOBIN 10.3 g/dl (14.0-17.9); LYMPHOCYTES # (AUTO) 1.2 X10'3 (1.1-4.8); MEAN CORPUSCULAR HEMOGLOBIN 31.1 PG (27.0-31.0); MEAN CORPUSCULAR HGB CONC 34.2 g/dL (33.0-36.5); NEUTROPHILS # (AUTO) 6.7 X10'3 (1.8-7.7); NEUTROPHILS % (AUTO) 78.9 % (42-75); PLATELET COUNT 589 X10'3 (140-440); RED CELL DISTRIBUTION WIDTH 15.4 % (11.5-14.5); WHITE BLOOD COUNT 8.5 X10'3 (4.5-11.0)
[2021-06-27 09:40] LABS: ALANINE AMINOTRANSFERASE 31 U/L (12-78); ALBUMIN 1.5 G/DL (3.4-5.0); ALBUMIN/GLOBULIN RATIO 0.2 (1.1-1.5); ALKALINE PHOSPHATASE 99 IU/L (46-116); ANION GAP 7 (8-16); ASPARTATE AMINO TRANSFERASE 34 U/L (10-37); BILIRUBIN,TOTAL 0.3 MG/DL (0.1-1.0); BLOOD UREA NITROGEN 20 MG/DL (7-18); BUN/CREATININE RATIO 30.8 (5.4-32.0); CALCIUM 8.7 MG/DL (8.5-10.1); CHLORIDE 97 MMOL/L (99-107); CREATININE 0.65 MG/DL (0.60-1.10); GLUCOSE 111 MG/DL (70-104); SODIUM 134 MMOL/L (135-145); TOTAL CARBON DIOXIDE 30.5 MMOL/L (24-32); TOTAL PROTEIN 8.6 G/DL (6.4-8.2); eGFR > 90 ML/MIN
[2021-06-27 09:42] LABS: POTASSIUM 4.8 MMOL/L (3.5-5.1)
--- NOTE | 2021-06-27 10:43 | NUR ---
Paged Dr. Greenfield Re: John Paul Solis RM 308B. Family at bedside awaiting meeting with MD. Are you available to talk to family? Thank you Bonita MAY [phone]
[2021-06-27 11:00] VITALS: BP 89/56
[2021-06-27] MEDS: acetaminophen 325mg/10.15ml oral unit dose solution NG PRN (14:29)
[2021-06-27 18:00] VITALS: BP 95/68
--- NOTE | 2021-06-27 18:07 | NUR ---
Patient in room MED 308. I have received report from Beatrice MAY and had the opportunity to ask questions and assume patient care.
--- NOTE | 2021-06-27 18:29 | NUR ---
Problems reprioritized. Patient report given, questions answered & plan of care reviewed with Shy MAY.
[2021-06-27] MEDS: gabapentin 300mg capsule NG SCH (20:45)
[2021-06-27] MEDS: donepezil 5mg tablet NG SCH (20:46)
[2021-06-27 22:00] VITALS: BP 99/61
[2021-06-28] MEDS: HYDROcodone/acetaminophen 5mg/325mg tablet PO PRN (01:54)
[2021-06-28 02:00] VITALS: BP 111/70
[2021-06-28] MEDS: ipratropium/albuterol 3ml nebule NEB SCH ×4 (03:21→22:08)
--- NOTE | 2021-06-28 06:03 | NUR ---
Problems reprioritized. Patient report given, questions answered & plan of care reviewed with YULIYA MAY.
[2021-06-28 06:26] LABS: BASOPHILS % (AUTO) 0.5 % (0-1); EOSINOPHILS # (AUTO) 0.1 X10'3 (0-0.9); HEMATOCRIT 29.3 % (42.0-52.0); HEMOGLOBIN 9.7 g/dl (14.0-17.9); LYMPHOCYTES % (AUTO) 16.5 % (21-51); MEAN CORPUSCULAR HEMOGLOBIN 30.6 PG (27.0-31.0); MEAN CORPUSCULAR HGB CONC 33.1 g/dL (33.0-36.5); MEAN CORPUSCULAR VOLUME 92.5 FL (78-98); MEAN PLATELET VOLUME 7.1 FL (7.4-10.4); MONOCYTES # (AUTO) 0.4 X10'3 (0-0.9); MONOCYTES % (AUTO) 6.8 % (2-12); NEUTROPHILS # (AUTO) 4.6 X10'3 (1.8-7.7); NEUTROPHILS % (AUTO) 75.2 % (42-75); PLATELET COUNT 572 X10'3 (140-440); RED BLOOD COUNT 3.17 X10'6 (4.70-6.10); RED CELL DISTRIBUTION WIDTH 15.8 % (11.5-14.5); WHITE BLOOD COUNT 6.1 X10'3 (4.5-11.0)
[2021-06-28 06:38] LABS: BILIRUBIN,TOTAL 0.1 MG/DL (0.1-1.0); BLOOD UREA NITROGEN 22 MG/DL (7-18); BUN/CREATININE RATIO 29.7 (5.4-32.0); CHLORIDE 98 MMOL/L (99-107); CREATININE 0.74 MG/DL (0.60-1.10); GLUCOSE 129 MG/DL (70-104); POTASSIUM 3.5 MMOL/L (3.5-5.1); SODIUM 137 MMOL/L (135-145); eGFR > 90 ML/MIN
[2021-06-28 06:39] LABS: ALANINE AMINOTRANSFERASE 25 U/L (12-78); ALBUMIN 1.6 G/DL (3.4-5.0); ALBUMIN/GLOBULIN RATIO 0.2 (1.1-1.5); ALKALINE PHOSPHATASE 94 IU/L (46-116); ANION GAP 8 (8-16); ASPARTATE AMINO TRANSFERASE 16 U/L (10-37); CALCIUM 8.8 MG/DL (8.5-10.1); TOTAL PROTEIN 8.1 G/DL (6.4-8.2)
[2021-06-28] MEDS: furosemide 40mg/4ml inj IV SCH (07:48)
[2021-06-28] MEDS: docusate sodium 100mg/10ml UD cup NG SCH (07:48)
[2021-06-28] MEDS: K and/or MAG REPLACEMENT MC SCH ×2 (08:00→20:00)
[2021-06-28] MEDS: lansoprazole 15mg solutab NG SCH (08:52)
[2021-06-28] MEDS: lactobacillus rhamnosus 10,000 MMU CELLS/CAPSULE NG SCH (08:52)
[2021-06-28] MEDS: folic acid 1mg tablet NG SCH (08:52)
[2021-06-28] MEDS: piperacillin/tazo 3.375gm/50ml 50 ML IV SCH (08:53)
[2021-06-28] MEDS: oxcarbazepine 150mg tablet NG SCH ×2 (08:53→12:43)
[2021-06-28] MEDS: phenobarbital 30mg tablet NG SCH (08:53)
[2021-06-28] MEDS: thiamine 100mg tablet NG SCH (08:53)
[2021-06-28] MEDS: methylPREDNISolone sod succ/PF 40mg inj. IV SCH (08:54)
[2021-06-28] MEDS: heparin, porcine 5000 units/ml vial SQ SCH ×2 (08:54→20:49)
[2021-06-28] MEDS: dextrose 5%-1/2 normal saline 1,000 ML IV SCH ×2 (10:00→20:59)
[2021-06-28] MEDS: acetaminophen 325mg/10.15ml oral unit dose solution NG PRN (12:44)
[2021-06-28] MEDS ORDERED: dextrose ORAL solution 15 GM/59 ML bottle PEG PRN ×2 (14:15→14:16)
[2021-06-28] MEDS ORDERED: acetaminophen 325mg/10.15ml oral unit dose solution PEG PRN (14:15)
[2021-06-28] MEDS ORDERED: diphenhydrAMINE 25 MG/10 ML UD oral solution PEG PRN (14:16)
[2021-06-28] MEDS ORDERED: ondansetron 4mg rapidly disintigrating tab PEG PRN (14:19)
[2021-06-28] MEDS ORDERED: mag hydrox/Alum hydrox/simeth 30ml oral suspension PEG PRN (14:19)
[2021-06-28 18:00] VITALS: BP 107/66
[2021-06-28] MEDS ORDERED: fluconazole 40mg/ml oral suspension 35ml bottle PO SCH (18:30)
--- NOTE | 2021-06-28 19:26 | NUR ---
WOUND DRESSING DRY AND INTACT Addendum: 06/28/21 at 1928 by Christina Blake RN Amended: Links added.
--- NOTE | 2021-06-28 19:44 | NUR ---
Problems reprioritized. Patient report given, questions answered & plan of care reviewed with RODRIGUEZ RN TRAVELER.
[2021-06-28] MEDS: docusate sodium 100mg/10ml UD cup PEG SCH (20:48)
[2021-06-28] MEDS: lactobacillus rhamnosus 10,000 MMU CELLS/CAPSULE PEG SCH (20:49)
[2021-06-28] MEDS: phenobarbital 30mg tablet PEG SCH (20:49)
[2021-06-28] MEDS: gabapentin 300mg capsule PEG SCH (20:50)
[2021-06-28] MEDS: donepezil 5mg tablet PEG SCH (20:50)
[2021-06-28] MEDS: oxcarbazepine 150mg tablet PEG SCH (20:51)
[2021-06-28] MEDS: fluconazole 100mg tablet PO SCH (20:55)
[2021-06-28 22:00] VITALS: BP 97/62
[2021-06-29 02:00] VITALS: BP 106/60
[2021-06-29] MEDS: HYDROcodone/acetaminophen 7.5MG/325MG per 15ml UD CUP PEG PRN (02:10)
[2021-06-29] MEDS: ipratropium/albuterol 3ml nebule NEB SCH ×4 (04:07→21:18)
[2021-06-29] MEDS: ketorolac trometh. 30mg/ml inj. IV PRN (04:19)
[2021-06-29 06:00] VITALS: BP 93/62
[2021-06-29 07:53] LABS: BASOPHILS % (AUTO) 0.6 % (0-1); EOSINOPHILS # (AUTO) 0.1 X10'3 (0-0.9); EOSINOPHILS % (AUTO) 2.3 % (0-6); HEMATOCRIT 26.5 % (42.0-52.0); LYMPHOCYTES # (AUTO) 1.1 X10'3 (1.1-4.8); LYMPHOCYTES % (AUTO) 20.8 % (21-51); MEAN CORPUSCULAR HEMOGLOBIN 31.4 PG (27.0-31.0); MEAN CORPUSCULAR HGB CONC 34.1 g/dL (33.0-36.5); MEAN CORPUSCULAR VOLUME 92.1 FL (78-98); MONOCYTES # (AUTO) 0.4 X10'3 (0-0.9); NEUTROPHILS # (AUTO) 3.7 X10'3 (1.8-7.7); NEUTROPHILS % (AUTO) 69.3 % (42-75); PLATELET COUNT 535 X10'3 (140-440); RED BLOOD COUNT 2.88 X10'6 (4.70-6.10); RED CELL DISTRIBUTION WIDTH 15.8 % (11.5-14.5); WHITE BLOOD COUNT 5.4 X10'3 (4.5-11.0)
[2021-06-29] MEDS ORDERED: predniSONE 20 mg tablet PEG SCH (08:00)
[2021-06-29] MEDS: K and/or MAG REPLACEMENT MC SCH ×2 (08:00→20:00)
[2021-06-29 08:11] LABS: ALANINE AMINOTRANSFERASE 24 U/L (12-78); ALBUMIN 1.4 G/DL (3.4-5.0); ALBUMIN/GLOBULIN RATIO 0.2 (1.1-1.5); ALKALINE PHOSPHATASE 84 IU/L (46-116); ANION GAP 5 (8-16); ASPARTATE AMINO TRANSFERASE 21 U/L (10-37); BILIRUBIN,TOTAL 0.1 MG/DL (0.1-1.0); BLOOD UREA NITROGEN 20 MG/DL (7-18); BUN/CREATININE RATIO 30.8 (5.4-32.0); CALCIUM 8.6 MG/DL (8.5-10.1); CHLORIDE 102 MMOL/L (99-107); CREATININE 0.65 MG/DL (0.60-1.10); GLUCOSE 145 MG/DL (70-104); POTASSIUM 3.9 MMOL/L (3.5-5.1); PREALBUMIN 17.8 MG/DL (19-36); SODIUM 139 MMOL/L (135-145); TOTAL CARBON DIOXIDE 31.7 MMOL/L (24-32); TOTAL PROTEIN 7.4 G/DL (6.4-8.2); eGFR > 90 ML/MIN
[2021-06-29] MEDS: docusate sodium 100mg/10ml UD cup PEG SCH ×2 (09:45→20:26)
[2021-06-29] MEDS: furosemide 40mg/4ml inj IV SCH (09:45)
[2021-06-29] MEDS: oxcarbazepine 150mg tablet PEG SCH ×3 (09:46→20:27)
[2021-06-29] MEDS: heparin, porcine 5000 units/ml vial SQ SCH ×2 (09:46→20:26)
[2021-06-29] MEDS: lansoprazole 15mg solutab PEG SCH (09:46)
[2021-06-29] MEDS: folic acid 1mg tablet PEG SCH (09:47)
[2021-06-29] MEDS: lactobacillus rhamnosus 10,000 MMU CELLS/CAPSULE PEG SCH ×2 (09:48→20:26)
[2021-06-29] MEDS: phenobarbital 30mg tablet PEG SCH ×2 (09:48→20:26)
[2021-06-29] MEDS: fluconazole 100mg tablet PO SCH (09:49)
[2021-06-29] MEDS: thiamine 100mg tablet PEG SCH (09:49)
[2021-06-29 11:00] VITALS: BP 99/61
[2021-06-29] MEDS: dextrose 5%-1/2 normal saline 1,000 ML IV SCH (13:48)
[2021-06-29 15:00] VITALS: BP 85/57
[2021-06-29 18:00] VITALS: BP 97/62
[2021-06-29] MEDS: donepezil 5mg tablet PEG SCH (20:26)
[2021-06-29] MEDS: gabapentin 300mg capsule PEG SCH (20:27)
[2021-06-29] MEDS: temazepam 15mg capsule PEG PRN (20:27)
[2021-06-29 22:00] VITALS: BP 95/55
[2021-06-30 02:00] VITALS: BP 122/82
[2021-06-30] MEDS: ipratropium/albuterol 3ml nebule NEB SCH ×4 (03:24→21:39)
[2021-06-30] MEDS: dextrose 5%-1/2 normal saline 1,000 ML IV SCH ×2 (04:13→18:24)
[2021-06-30 06:00] VITALS: BP 108/64
--- NOTE | 2021-06-30 06:00 | NUR ---
Patient in room MED 308. I have received report from Aryan MAY and had the opportunity to ask questions and assume patient care.
[2021-06-30] MEDS: fluconazole 100mg tablet PO SCH (08:00)
[2021-06-30] MEDS: K and/or MAG REPLACEMENT MC SCH ×2 (08:00→20:00)
[2021-06-30] MEDS: predniSONE 20 mg tablet PEG SCH (08:00)
[2021-06-30] MEDS: folic acid 1mg tablet PEG SCH (09:50)
[2021-06-30] MEDS: lansoprazole 15mg solutab PEG SCH (09:50)
[2021-06-30] MEDS: furosemide 40mg/4ml inj IV SCH (09:50)
[2021-06-30] MEDS: thiamine 100mg tablet PEG SCH (09:50)
[2021-06-30] MEDS: lactobacillus rhamnosus 10,000 MMU CELLS/CAPSULE PEG SCH ×2 (09:51→20:13)
[2021-06-30] MEDS: phenobarbital 30mg tablet PEG SCH ×2 (09:51→20:12)
[2021-06-30] MEDS: oxcarbazepine 150mg tablet PEG SCH ×3 (09:51→20:13)
[2021-06-30] MEDS: docusate sodium 100mg/10ml UD cup PEG SCH ×2 (09:52→20:19)
[2021-06-30] MEDS: heparin, porcine 5000 units/ml vial SQ SCH ×2 (09:53→20:10)
--- NOTE | 2021-06-30 10:26 | NUR ---
Reassessment: Pt continues tolerating TF via PEG at goal rate with GRV WNL. Pt receiving Glucerna 1.2 as substitute for Jevity 1.2 given product shortage at this time. Pt continues receiving water flushes, no serum Na today however serum Na WNL 06/29. LBM 06/28. Will continue to follow. Recommendations: 1) Continuous Jevity 1.2 via PEG with goal rate of 75 mL/hr to provide 1800 mL total volume/day, 2160 kcal, 100 g protein, and 1453 mL water 2) Additional 120 mL water flush Q4H given low serum Na; monitor serum Na and need to adjust 3) Prealbumin q Tuesday/ 4) Daily scaled weights 5) Advance PO diet to regular as medically indicated per ST recs 6) IF PO diet is advanced, continue TF until pt able to consistently tolerate at least 65% PO intake 7) Routine bowel care; utilize PRN bowel care given previous constipation Addendum: 06/30/21 at [address] Amended: Links added.
[2021-06-30 11:00] VITALS: BP 98/63
[2021-06-30 15:21] LABS: BASOPHILS # (AUTO) 0.1 X10'3 (0-0.2); BASOPHILS % (AUTO) 1.3 % (0-1); EOSINOPHILS # (AUTO) 0.1 X10'3 (0-0.9); EOSINOPHILS % (AUTO) 2.8 % (0-6); HEMATOCRIT 30.5 % (42.0-52.0); HEMOGLOBIN 9.9 g/dl (14.0-17.9); LYMPHOCYTES # (AUTO) 1.2 X10'3 (1.1-4.8); LYMPHOCYTES % (AUTO) 22.9 % (21-51); MEAN CORPUSCULAR HEMOGLOBIN 30.2 PG (27.0-31.0); MEAN CORPUSCULAR HGB CONC 32.6 g/dL (33.0-36.5); MEAN CORPUSCULAR VOLUME 92.8 FL (78-98); MEAN PLATELET VOLUME 7.2 FL (7.4-10.4); MONOCYTES # (AUTO) 0.4 X10'3 (0-0.9); MONOCYTES % (AUTO) 7.1 % (2-12); NEUTROPHILS # (AUTO) 3.3 X10'3 (1.8-7.7); NEUTROPHILS % (AUTO) 65.9 % (42-75); PLATELET COUNT 595 X10'3 (140-440); RED BLOOD COUNT 3.28 X10'6 (4.70-6.10); RED CELL DISTRIBUTION WIDTH 15.8 % (11.5-14.5); WHITE BLOOD COUNT 5.1 X10'3 (4.5-11.0)
[2021-06-30 15:36] LABS: ALANINE AMINOTRANSFERASE 30 U/L (12-78); ALBUMIN 1.6 G/DL (3.4-5.0); ALBUMIN/GLOBULIN RATIO 0.3 (1.1-1.5); ALKALINE PHOSPHATASE 99 IU/L (46-116); ANION GAP 6 (8-16); ASPARTATE AMINO TRANSFERASE 24 U/L (10-37); BILIRUBIN,TOTAL 0.1 MG/DL (0.1-1.0); BLOOD UREA NITROGEN 19 MG/DL (7-18); BUN/CREATININE RATIO 30.6 (5.4-32.0); CALCIUM 8.5 MG/DL (8.5-10.1); CHLORIDE 97 MMOL/L (99-107); CREATININE 0.62 MG/DL (0.60-1.10); GLUCOSE 195 MG/DL (70-104); POTASSIUM 3.9 MMOL/L (3.5-5.1); SODIUM 135 MMOL/L (135-145); TOTAL CARBON DIOXIDE 31.7 MMOL/L (24-32); eGFR > 90 ML/MIN
--- NOTE | 2021-06-30 17:00 | NUR ---
pt had a xtralarge bm, brown, soft, filled the entire bedpan, new foam dressing applied, pts serrano catheter continues to leak around the edges, but remains in place
[2021-06-30 18:00] VITALS: BP 94/62
[2021-06-30 18:08] VITALS: BP 95/63
[2021-06-30] MEDS: donepezil 5mg tablet PEG SCH (20:14)
[2021-06-30] MEDS: gabapentin 300mg capsule PEG SCH (20:17)
[2021-06-30] MEDS: ketorolac trometh. 30mg/ml inj. IV PRN ×2 (20:29→22:46)
[2021-06-30 22:00] VITALS: BP 110/60
[2021-07-01 02:00] VITALS: BP 102/66
[2021-07-01] MEDS: ipratropium/albuterol 3ml nebule NEB SCH ×4 (03:50→20:35)
[2021-07-01 06:37] VITALS: BP 95/58
--- NOTE | 2021-07-01 07:00 | NUR ---
Patient in room MED 308. I have received report from Holly MAY and had the opportunity to ask questions and assume patient care.
[2021-07-01] MEDS: dextrose 5%-1/2 normal saline 1,000 ML IV SCH ×2 (07:13→21:50)
[2021-07-01 07:31] LABS: EOSINOPHILS # (AUTO) 0.2 X10'3 (0-0.9); EOSINOPHILS % (AUTO) 3.6 % (0-6); HEMATOCRIT 28.6 % (42.0-52.0); HEMOGLOBIN 9.5 g/dl (14.0-17.9); LYMPHOCYTES # (AUTO) 1.1 X10'3 (1.1-4.8); LYMPHOCYTES % (AUTO) 22.7 % (21-51); MEAN CORPUSCULAR HEMOGLOBIN 30.4 PG (27.0-31.0); MEAN CORPUSCULAR HGB CONC 33.3 g/dL (33.0-36.5); MEAN CORPUSCULAR VOLUME 91.1 FL (78-98); MEAN PLATELET VOLUME 6.7 FL (7.4-10.4); MONOCYTES # (AUTO) 0.4 X10'3 (0-0.9); MONOCYTES % (AUTO) 7.9 % (2-12); NEUTROPHILS # (AUTO) 3.1 X10'3 (1.8-7.7); NEUTROPHILS % (AUTO) 64.8 % (42-75); PLATELET COUNT 544 X10'3 (140-440); RED BLOOD COUNT 3.14 X10'6 (4.70-6.10); RED CELL DISTRIBUTION WIDTH 15.9 % (11.5-14.5); WHITE BLOOD COUNT 4.8 X10'3 (4.5-11.0)
[2021-07-01 07:58] LABS: ALANINE AMINOTRANSFERASE 28 U/L (12-78); ALBUMIN 1.5 G/DL (3.4-5.0); ALBUMIN/GLOBULIN RATIO 0.3 (1.1-1.5); ALKALINE PHOSPHATASE 108 IU/L (46-116); ANION GAP 5 (8-16); ASPARTATE AMINO TRANSFERASE 23 U/L (10-37); BILIRUBIN,TOTAL 0.1 MG/DL (0.1-1.0); BLOOD UREA NITROGEN 28 MG/DL (7-18); BUN/CREATININE RATIO 39.4 (5.4-32.0); CALCIUM 8.2 MG/DL (8.5-10.1); CHLORIDE 100 MMOL/L (99-107); CREATININE 0.71 MG/DL (0.60-1.10); GLUCOSE 111 MG/DL (70-104); POTASSIUM 4.3 MMOL/L (3.5-5.1); SODIUM 136 MMOL/L (135-145); TOTAL CARBON DIOXIDE 31.2 MMOL/L (24-32); TOTAL PROTEIN 7.5 G/DL (6.4-8.2); eGFR > 90 ML/MIN
[2021-07-01] MEDS: K and/or MAG REPLACEMENT MC SCH ×2 (08:00→20:00)
[2021-07-01] MEDS: furosemide 40mg/4ml inj IV SCH (08:00)
[2021-07-01] MEDS: lactobacillus rhamnosus 10,000 MMU CELLS/CAPSULE PEG SCH ×2 (09:21→19:33)
[2021-07-01] MEDS: oxcarbazepine 150mg tablet PEG SCH ×3 (09:21→21:51)
[2021-07-01] MEDS: folic acid 1mg tablet PEG SCH (09:21)
[2021-07-01] MEDS: phenobarbital 30mg tablet PEG SCH ×2 (09:21→19:33)
[2021-07-01] MEDS: docusate sodium 100mg/10ml UD cup PEG SCH ×2 (09:21→19:32)
[2021-07-01] MEDS: lansoprazole 15mg solutab PEG SCH (09:21)
[2021-07-01] MEDS: predniSONE 20 mg tablet PEG SCH (09:22)
[2021-07-01] MEDS: thiamine 100mg tablet PEG SCH (09:22)
[2021-07-01] MEDS: heparin, porcine 5000 units/ml vial SQ SCH ×2 (09:23→19:32)
[2021-07-01] MEDS: fluconazole 100mg tablet PO SCH (09:27)
[2021-07-01 11:00] VITALS: BP 92/68
[2021-07-01 15:00] VITALS: BP 88/59
[2021-07-01 18:30] VITALS: BP 96/55
--- NOTE | 2021-07-01 18:30 | NUR ---
Problems reprioritized. Patient report given, questions answered & plan of care reviewed with Grace MAY.
--- NOTE | 2021-07-01 18:30 | NUR ---
Patient in room MED 308. I have received report from YADIRA Whitaker and had the opportunity to ask questions and assume patient care. pt awake no complaints Addendum: 07/01/21 at 1915 by Richard Flores RN Amended: Links added.
[2021-07-01] MEDS: gabapentin 300mg capsule PEG SCH (21:50)
[2021-07-01] MEDS: donepezil 5mg tablet PEG SCH (21:51)
[2021-07-01 22:00] VITALS: BP 94/46
[2021-07-02 02:30] VITALS: BP 100/62
[2021-07-02] MEDS: ipratropium/albuterol 3ml nebule NEB SCH ×4 (02:53→20:05)
[2021-07-02 04:15] LABS: BASOPHILS % (AUTO) 0.9 % (0-1); EOSINOPHILS # (AUTO) 0.1 X10'3 (0-0.9); EOSINOPHILS % (AUTO) 2.2 % (0-6); HEMATOCRIT 27.2 % (42.0-52.0); HEMOGLOBIN 9.4 g/dl (14.0-17.9); LYMPHOCYTES # (AUTO) 1.6 X10'3 (1.1-4.8); LYMPHOCYTES % (AUTO) 29.9 % (21-51); MEAN CORPUSCULAR HEMOGLOBIN 31.6 PG (27.0-31.0); MEAN CORPUSCULAR HGB CONC 34.5 g/dL (33.0-36.5); MEAN CORPUSCULAR VOLUME 91.5 FL (78-98); MEAN PLATELET VOLUME 6.6 FL (7.4-10.4); MONOCYTES # (AUTO) 0.5 X10'3 (0-0.9); MONOCYTES % (AUTO) 8.7 % (2-12); NEUTROPHILS # (AUTO) 3.1 X10'3 (1.8-7.7); NEUTROPHILS % (AUTO) 58.3 % (42-75); PLATELET COUNT 512 X10'3 (140-440); RED BLOOD COUNT 2.97 X10'6 (4.70-6.10); RED CELL DISTRIBUTION WIDTH 15.6 % (11.5-14.5); WHITE BLOOD COUNT 5.2 X10'3 (4.5-11.0)
[2021-07-02 04:27] LABS: ALANINE AMINOTRANSFERASE 28 U/L (12-78); ALBUMIN 1.6 G/DL (3.4-5.0); ALBUMIN/GLOBULIN RATIO 0.3 (1.1-1.5); ALKALINE PHOSPHATASE 113 IU/L (46-116); ANION GAP 7 (8-16); ASPARTATE AMINO TRANSFERASE 21 U/L (10-37); BILIRUBIN,TOTAL 0.2 MG/DL (0.1-1.0); BLOOD UREA NITROGEN 17 MG/DL (7-18); BUN/CREATININE RATIO 28.8 (5.4-32.0); CHLORIDE 100 MMOL/L (99-107); CREATININE 0.59 MG/DL (0.60-1.10); GLUCOSE 94 MG/DL (70-104); POTASSIUM 4.2 MMOL/L (3.5-5.1); PREALBUMIN 25.2 MG/DL (19-36); SODIUM 135 MMOL/L (135-145); TOTAL CARBON DIOXIDE 28.2 MMOL/L (24-32); TOTAL PROTEIN 7.6 G/DL (6.4-8.2); eGFR > 90 ML/MIN
[2021-07-02] MEDS: ketorolac trometh. 30mg/ml inj. IV PRN (04:39)
[2021-07-02 06:00] VITALS: BP 91/57
--- NOTE | 2021-07-02 06:40 | NUR ---
Problems reprioritized. Patient report given, questions answered & plan of care reviewed with YADIRA Gregg. Addendum: 07/02/21 at 0641 by Richard Flores RN Amended: Links added.
[2021-07-02] MEDS: K and/or MAG REPLACEMENT MC SCH ×2 (08:00→20:00)
[2021-07-02] MEDS: docusate sodium 100mg/10ml UD cup PEG SCH ×2 (08:56→20:00)
[2021-07-02] MEDS: lactobacillus rhamnosus 10,000 MMU CELLS/CAPSULE PEG SCH ×2 (08:56→21:25)
[2021-07-02] MEDS: oxcarbazepine 150mg tablet PEG SCH ×3 (08:57→21:28)
[2021-07-02] MEDS: predniSONE 20 mg tablet PEG SCH (08:57)
[2021-07-02] MEDS: folic acid 1mg tablet PEG SCH (08:57)
[2021-07-02] MEDS: phenobarbital 30mg tablet PEG SCH ×2 (08:57→21:27)
[2021-07-02] MEDS: thiamine 100mg tablet PEG SCH (08:57)
[2021-07-02] MEDS: fluconazole 100mg tablet PO SCH (08:57)
[2021-07-02] MEDS: heparin, porcine 5000 units/ml vial SQ SCH ×2 (08:58→21:18)
[2021-07-02] MEDS: furosemide 40mg/4ml inj IV SCH (08:58)
[2021-07-02] MEDS: lansoprazole 15mg solutab PEG SCH (09:02)
[2021-07-02 10:00] VITALS: BP 96/82
[2021-07-02] MEDS: dextrose 5%-1/2 normal saline 1,000 ML IV SCH (12:55)
[2021-07-02 15:15] VITALS: BP 91/43
--- NOTE | 2021-07-02 15:36 | NUR ---
Reassessment: Pt s/p f/u BSS 07/[address] recs NPO as PO intake not safe for pt at this time. Pt continues tolerating TF via PEG at goal rate with GRV WNL. Pt continues receiving water flushes, serum Na WNL. LBM 06/30, receiving routine bowel care. No changes to nutrition recommendations at this time. Will continue to follow. Recommendations: 1) Continuous Jevity 1.2 via PEG with goal rate of 75 mL/hr to provide 1800 mL total volume/day, 2160 kcal, 100 g protein, and 1453 mL water 2) Additional 120 mL water flush Q4H; monitor serum Na and need to adjust 3) Prealbumin q Tuesday/ 4) Daily scaled weights 5) Advance PO diet to regular as medically indicated per recs 6) IF PO diet is advanced, continue TF until pt able to consistently tolerate at least 65% PO intake 7) Routine bowel care; utilize PRN bowel care given previous constipation HOME BOLUS TF RECS: 1) Bolus TF via PEG QID using Jevity 1.5 or equivalent with goal of 375 mL. Begin at 125 mL/bolus and advance by 50 mL each bolus as tolerated to goal rate 2) Additional 100 mL water flush before and after each bolus feed 3) Outpatient RD to titrate to goal rate and adjust recommendations as appropriate based on patient's estimated nutrient needs Addendum: 07/02/21 at [address] Amended: Links added.
[2021-07-02 18:00] VITALS: BP_SYST 98; BP_SYST 99; BP_DIAS 55; BP_DIAS 65
--- NOTE | 2021-07-02 18:35 | NUR ---
Patient in room MED 308. I have received report from YADIRA Gregg and had the opportunity to ask questions and assume patient care. Patient sitting in recliner
--- NOTE | 2021-07-02 19:09 | NUR ---
pATIENT FELL, FOUND DOWN BY PRIMARY RN, VS -HR 66, O2 100, RR 17, BP 119/75, PATIENT REPORTS HITTING BACK OF HEAD, PAIN 8/10 REPORTED BY PATIENT. PRIMARY RN NOTE TO FOLLOW, CALLING MD FOR FURTHER ORDERS. HEATHER MAY
--- NOTE | 2021-07-02 19:30 | NUR ---
Found patient on the floor. He was attempting top put himself to bed. Patient told me that he did hit the back of his head. Patient did not lose consciousness. Patients vs were stable, see previous note. No complaints of pain anywhere else. Back of his head feels normal, no bumps or swelling anywhere on his head. No bruising anywhere else on his body. Dr Warren was notified. He did not want to do a SCAN. order was to give pain medication already prescribed. Monitor him neurologically, If changes notify him hold IV fluids because patients lungs sound wet and cough was wet. I will continue to monitor.
[2021-07-02] MEDS: HYDROcodone/acetaminophen 7.5MG/325MG per 15ml UD CUP PEG PRN (21:20)
[2021-07-02] MEDS: donepezil 5mg tablet PEG SCH (21:24)
[2021-07-02] MEDS: gabapentin 300mg capsule PEG SCH (21:26)
[2021-07-02 22:00] VITALS: BP 98/55
[2021-07-03] VITALS (7 sets, daily range): BP systolic 85–102; BP diastolic 49–67
[2021-07-03] MEDS: ipratropium/albuterol 3ml nebule NEB SCH ×4 (02:17→20:16)
--- NOTE | 2021-07-03 05:37 | NUR ---
Patient has been appropriate all shift. Head still remains free of any bumps or abrasions. No other complaints reported.
--- NOTE | 2021-07-03 06:23 | NUR ---
Patient in room MED 308. I have received report from YADIRA Guerrero and had the opportunity to ask questions and assume patient care. Addendum: 07/03/21 at 0636 by Jarocho Dee RN Report given to YADIRA Vasquez
--- NOTE | 2021-07-03 06:50 | NUR ---
Patient in room MED 308. I have received report from Jarocho Caballero and had the opportunity to ask questions and assume patient care.
[2021-07-03] MEDS: furosemide 40mg/4ml inj IV SCH (08:00)
[2021-07-03] MEDS: docusate sodium 100mg/10ml UD cup PEG SCH ×2 (08:00→19:23)
[2021-07-03] MEDS: K and/or MAG REPLACEMENT MC SCH ×2 (08:00→19:00)
[2021-07-03] MEDS: lactobacillus rhamnosus 10,000 MMU CELLS/CAPSULE PEG SCH ×2 (08:39→19:24)
[2021-07-03] MEDS: oxcarbazepine 150mg tablet PEG SCH ×3 (08:40→19:25)
[2021-07-03] MEDS: acetaminophen 325mg/10.15ml oral unit dose solution PEG PRN (08:40)
[2021-07-03] MEDS: predniSONE 20 mg tablet PEG SCH (08:41)
[2021-07-03] MEDS: thiamine 100mg tablet PEG SCH (08:41)
[2021-07-03] MEDS: lansoprazole 15mg solutab PEG SCH (08:41)
[2021-07-03] MEDS: folic acid 1mg tablet PEG SCH (08:41)
[2021-07-03] MEDS: phenobarbital 30mg tablet PEG SCH ×2 (08:41→19:24)
[2021-07-03] MEDS: fluconazole 100mg tablet PO SCH (08:42)
[2021-07-03] MEDS: heparin, porcine 5000 units/ml vial SQ SCH ×2 (08:42→19:24)
--- NOTE | 2021-07-03 18:22 | NUR ---
Problems reprioritized. Patient report given, questions answered & plan of care reviewed with Caryn MAY Ortho.
[2021-07-03] MEDS: gabapentin 300mg capsule PEG SCH (19:25)
[2021-07-03] MEDS: donepezil 5mg tablet PEG SCH (19:25)
[2021-07-04] MEDS: HYDROcodone/acetaminophen 7.5MG/325MG per 15ml UD CUP PEG PRN ×3 (00:26→20:24)
[2021-07-04 02:00] VITALS: BP 94/61
[2021-07-04] MEDS: ipratropium/albuterol 3ml nebule NEB SCH ×4 (02:33→20:19)
[2021-07-04 06:00] VITALS: BP 82/57
[2021-07-04] MEDS: docusate sodium 100mg/10ml UD cup PEG SCH ×2 (07:40→20:17)
[2021-07-04] MEDS: furosemide 40mg/4ml inj IV SCH (07:40)
[2021-07-04] MEDS: lansoprazole 15mg solutab PEG SCH (07:41)
[2021-07-04] MEDS: folic acid 1mg tablet PEG SCH (07:41)
[2021-07-04] MEDS: lactobacillus rhamnosus 10,000 MMU CELLS/CAPSULE PEG SCH ×2 (07:41→20:17)
[2021-07-04] MEDS: fluconazole 100mg tablet PO SCH (07:41)
[2021-07-04] MEDS: phenobarbital 30mg tablet PEG SCH ×2 (07:41→20:18)
[2021-07-04] MEDS: predniSONE 20 mg tablet PEG SCH (07:41)
[2021-07-04] MEDS: thiamine 100mg tablet PEG SCH (07:42)
[2021-07-04] MEDS: oxcarbazepine 150mg tablet PEG SCH ×3 (07:42→20:20)
[2021-07-04] MEDS: heparin, porcine 5000 units/ml vial SQ SCH ×2 (07:48→20:21)
[2021-07-04] MEDS: K and/or MAG REPLACEMENT MC SCH ×2 (08:00→20:00)
[2021-07-04 11:00] VITALS: BP 93/54
[2021-07-04 15:00] VITALS: BP 101/64
[2021-07-04 18:00] VITALS: BP 91/64
[2021-07-04] MEDS: donepezil 5mg tablet PEG SCH (20:19)
[2021-07-04] MEDS: gabapentin 300mg capsule PEG SCH (20:19)
[2021-07-04 22:00] VITALS: BP 90/64
[2021-07-05 02:00] VITALS: BP 94/64
[2021-07-05] MEDS: ipratropium/albuterol 3ml nebule NEB SCH ×4 (04:11→19:51)
--- NOTE | 2021-07-05 06:47 | NUR ---
Patient in room MED 308. I have received report from YADIRA BOUDREAUX, and had the opportunity to ask questions and assume patient care.
[2021-07-05] MEDS: predniSONE 20 mg tablet PEG SCH (08:00)
[2021-07-05] MEDS: furosemide 40mg/4ml inj IV SCH (10:06)
[2021-07-05] MEDS: oxcarbazepine 150mg tablet PEG SCH ×3 (10:11→19:51)
[2021-07-05] MEDS: phenobarbital 30mg tablet PEG SCH ×2 (10:11→19:51)
[2021-07-05] MEDS: lansoprazole 15mg solutab PEG SCH (10:12)
[2021-07-05] MEDS: fluconazole 100mg tablet PO SCH (10:12)
[2021-07-05] MEDS: folic acid 1mg tablet PEG SCH (10:12)
[2021-07-05] MEDS: lactobacillus rhamnosus 10,000 MMU CELLS/CAPSULE PEG SCH ×2 (10:12→19:51)
[2021-07-05] MEDS: thiamine 100mg tablet PEG SCH (10:14)
[2021-07-05] MEDS: heparin, porcine 5000 units/ml vial SQ SCH ×2 (10:14→19:52)
[2021-07-05] MEDS: docusate sodium 100mg/10ml UD cup PEG SCH ×2 (10:15→19:50)
[2021-07-05] MEDS: K and/or MAG REPLACEMENT MC SCH ×2 (10:18→19:52)
[2021-07-05 18:00] VITALS: BP 110/68
--- NOTE | 2021-07-05 19:12 | NUR ---
Problems reprioritized. Patient report given, questions answered & plan of care reviewed with YADIRA BOUDREAUX.
[2021-07-05] MEDS: gabapentin 300mg capsule PEG SCH (19:51)
[2021-07-05] MEDS: donepezil 5mg tablet PEG SCH (19:52)
[2021-07-05 22:00] VITALS: BP 114/65
[2021-07-06 02:00] VITALS: BP 103/73
[2021-07-06] MEDS: ipratropium/albuterol 3ml nebule NEB SCH ×4 (02:59→21:52)
[2021-07-06 06:00] VITALS: BP 104/70
[2021-07-06 06:56] LABS: BASOPHILS % (AUTO) 0.7 % (0-1); EOSINOPHILS # (AUTO) 0.1 X10'3 (0-0.9); HEMOGLOBIN 10.9 g/dl (14.0-17.9); MEAN PLATELET VOLUME 6.8 FL (7.4-10.4); MONOCYTES # (AUTO) 0.4 X10'3 (0-0.9); NEUTROPHILS # (AUTO) 2.3 X10'3 (1.8-7.7); RED CELL DISTRIBUTION WIDTH 16.5 % (11.5-14.5); WHITE BLOOD COUNT 4.4 X10'3 (4.5-11.0)
[2021-07-06 06:59] LABS: EOSINOPHILS % (AUTO) 1.4 % (0-6); HEMATOCRIT 32.6 % (42.0-52.0); LYMPHOCYTES # (AUTO) 1.6 X10'3 (1.1-4.8); LYMPHOCYTES % (AUTO) 35.3 % (21-51); MEAN CORPUSCULAR HEMOGLOBIN 31.3 PG (27.0-31.0); MEAN CORPUSCULAR HGB CONC 33.5 g/dL (33.0-36.5); MEAN CORPUSCULAR VOLUME 93.5 FL (78-98); MONOCYTES % (AUTO) 9.6 % (2-12); PLATELET COUNT 416 X10'3 (140-440); RED BLOOD COUNT 3.48 X10'6 (4.70-6.10)
[2021-07-06] MEDS: folic acid 1mg tablet PEG SCH (07:12)
[2021-07-06] MEDS: oxcarbazepine 150mg tablet PEG SCH ×3 (07:12→19:51)
[2021-07-06] MEDS: heparin, porcine 5000 units/ml vial SQ SCH ×2 (07:13→19:53)
[2021-07-06] MEDS: lansoprazole 15mg solutab PEG SCH (07:13)
[2021-07-06] MEDS: thiamine 100mg tablet PEG SCH (07:13)
[2021-07-06] MEDS: phenobarbital 30mg tablet PEG SCH ×2 (07:13→19:52)
[2021-07-06] MEDS: lactobacillus rhamnosus 10,000 MMU CELLS/CAPSULE PEG SCH ×2 (07:13→19:50)
[2021-07-06] MEDS: furosemide 40mg/4ml inj IV SCH (07:13)
[2021-07-06 07:14] LABS: ALBUMIN 1.9 G/DL (3.4-5.0); ANION GAP 9 (8-16); BLOOD UREA NITROGEN 20 MG/DL (7-18); BUN/CREATININE RATIO 30.3 (5.4-32.0); CHLORIDE 98 MMOL/L (99-107); CREATININE 0.66 MG/DL (0.60-1.10); GLUCOSE 137 MG/DL (70-104); POTASSIUM 3.9 MMOL/L (3.5-5.1); PREALBUMIN 39.7 MG/DL (19-36); SODIUM 135 MMOL/L (135-145); eGFR > 90 ML/MIN
[2021-07-06] MEDS: prednisone 10mg tablet PO SCH (07:14)
[2021-07-06] MEDS: fluconazole 100mg tablet PO SCH (07:19)
[2021-07-06] MEDS: docusate sodium 100mg/10ml UD cup PEG SCH ×2 (07:21→19:50)
[2021-07-06] MEDS: K and/or MAG REPLACEMENT MC SCH ×2 (08:00→19:31)
[2021-07-06 10:23] LABS: ANISOCYTOSIS 1+; PLATELET ESTIMATE NORMAL; TOTAL CELLS COUNTED 100
[2021-07-06 10:46] VITALS: BP 93/63
[2021-07-06 14:00] VITALS: BP 99/72
--- NOTE | 2021-07-06 14:53 | NUR ---
F/u /: Pt remains tolerating continuous TF via PEG at goal GRV WNL. RD d/w who is agreeable for transition to bolus feeds at this time. Noted pt on room air vs 2L NC w/ serum Na 135mmol/L this AM per EMR; updated TF recs below. Noted PALB 39.7 this AM likely impacted by steroids receiving Prednisone. LBM 1/3 large per EMR receiving routine colace. Will monitor for bolus feeds tolerance and adjustment needs as medically indicated. Recommendations: 1) Bolus TF via PEG QID at 0800, 1200, 1600, and 2000 using Jevity 1.2 w/ 410mL goal bolus. Initiate at 150ml bolus and advance by 65ml each bolus to goal as tolerated. To provide 1640mL total volume/day, 1968 kcals, 91g protein, and 1328mL water 2) Additional 40mL water flush before and after each bolus; monitor serum Na for adjustment needs 3) Monitor for bolus feeds tolerance and adjustment needs 4) Prealbumin q Tuesday/; daily scaled weights 5) Routine bowel skilled nursing BOLUS TF RECS: 1) Bolus TF via PEG QID using Jevity 1.5 or equivalent with goal of 375 mL. Begin at 125 mL/bolus and advance by 50 mL each bolus as tolerated to goal rate 2) Additional 80mL water flush before and after each bolus feed 3) Outpatient RD to titrate to goal rate and adjust recommendations as appropriate based on patient's estimated nutrient needs Addendum: 07/06/21 at [address] Amended: Links added.
[2021-07-06 18:00] VITALS: BP 101/69
[2021-07-06] MEDS: donepezil 5mg tablet PEG SCH (19:50)
[2021-07-06] MEDS: gabapentin 300mg capsule PEG SCH (19:50)
[2021-07-06] MEDS: HYDROcodone/acetaminophen 7.5MG/325MG per 15ml UD CUP PEG PRN (20:08)
[2021-07-06 22:00] VITALS: BP 101/66
[2021-07-07 02:00] VITALS: BP 108/70
[2021-07-07] MEDS: ipratropium/albuterol 3ml nebule NEB SCH ×4 (02:48→21:10)
[2021-07-07 06:00] VITALS: BP 102/68
--- NOTE | 2021-07-07 06:01 | NUR ---
Problems reprioritized. Patient report given, questions answered & plan of care reviewed with YADIRA Nava.
[2021-07-07] MEDS: lansoprazole 15mg solutab PEG SCH (07:30)
[2021-07-07] MEDS: K and/or MAG REPLACEMENT MC SCH (08:00)
[2021-07-07] MEDS: oxcarbazepine 150mg tablet PEG SCH ×3 (08:45→20:06)
[2021-07-07] MEDS: phenobarbital 30mg tablet PEG SCH ×2 (08:45→19:33)
[2021-07-07] MEDS: prednisone 10mg tablet PO SCH (08:45)
[2021-07-07] MEDS: lactobacillus rhamnosus 10,000 MMU CELLS/CAPSULE PEG SCH ×2 (08:45→19:34)
[2021-07-07] MEDS: folic acid 1mg tablet PEG SCH (08:45)
[2021-07-07] MEDS: fluconazole 100mg tablet PEG SCH (08:46)
[2021-07-07] MEDS: docusate sodium 100mg/10ml UD cup PEG SCH ×2 (08:46→19:36)
[2021-07-07] MEDS: furosemide 40mg/4ml inj IV SCH (08:46)
[2021-07-07] MEDS: thiamine 100mg tablet PEG SCH (08:46)
[2021-07-07] MEDS: heparin, porcine 5000 units/ml vial SQ SCH ×2 (08:47→19:36)
[2021-07-07 10:00] VITALS: BP 107/70
[2021-07-07 14:37] VITALS: BP 105/68
[2021-07-07] MEDS: gabapentin 300mg capsule PEG SCH (20:06)
[2021-07-07] MEDS: donepezil 5mg tablet PEG SCH (20:06)
[2021-07-07 22:00] VITALS: BP 98/63
[2021-07-08] VITALS (7 sets, daily range): BP systolic 93–107; BP diastolic 49–71
[2021-07-08] MEDS: ipratropium/albuterol 3ml nebule NEB SCH ×4 (02:36→21:20)
--- NOTE | 2021-07-08 06:33 | NUR ---
Patient in room MED 308. I have received report from YADIRA HINSON and had the opportunity to ask questions and assume patient care.
[2021-07-08] MEDS: K and/or MAG REPLACEMENT MC SCH ×2 (06:38→19:10)
[2021-07-08] MEDS: heparin, porcine 5000 units/ml vial SQ SCH ×2 (08:39→21:00)
[2021-07-08] MEDS: fluconazole 100mg tablet PEG SCH (08:39)
[2021-07-08] MEDS: furosemide 40mg/4ml inj IV SCH (08:40)
[2021-07-08] MEDS: lansoprazole 15mg solutab PEG SCH (08:40)
[2021-07-08] MEDS: phenobarbital 30mg tablet PEG SCH ×2 (08:40→21:00)
[2021-07-08] MEDS: oxcarbazepine 150mg tablet PEG SCH ×3 (08:40→21:04)
[2021-07-08] MEDS: lactobacillus rhamnosus 10,000 MMU CELLS/CAPSULE PEG SCH ×2 (08:40→20:59)
[2021-07-08] MEDS: folic acid 1mg tablet PEG SCH (08:40)
[2021-07-08] MEDS: prednisone 10mg tablet PO SCH (08:41)
[2021-07-08] MEDS: docusate sodium 100mg/10ml UD cup PEG SCH ×2 (08:41→21:01)
[2021-07-08] MEDS: thiamine 100mg tablet PEG SCH (08:41)
--- NOTE | 2021-07-08 15:57 | NUR ---
WRONG PT ENTERED FOR 1400 VS. 1401 IS DONAL HERNANDEZ.
--- NOTE | 2021-07-08 18:55 | NUR ---
Problems reprioritized. Patient report given, questions answered & plan of care reviewed with YADIRA MONSIVAIS.
[2021-07-08] MEDS: gabapentin 300mg capsule PEG SCH (20:59)
[2021-07-08] MEDS: donepezil 5mg tablet PEG SCH (21:00)
[2021-07-09 02:00] VITALS: BP 112/71
[2021-07-09] MEDS: ipratropium/albuterol 3ml nebule NEB SCH ×4 (02:19→21:24)
[2021-07-09 06:00] VITALS: BP 164/68
[2021-07-09] MEDS: HYDROcodone/acetaminophen 7.5MG/325MG per 15ml UD CUP PEG PRN (06:02)
[2021-07-09] MEDS: K and/or MAG REPLACEMENT MC SCH ×2 (08:00→20:00)
[2021-07-09] MEDS: docusate sodium 100mg/10ml UD cup PEG SCH ×2 (08:00→21:30)
[2021-07-09] MEDS: fluconazole 100mg tablet PEG SCH (08:00)
[2021-07-09] MEDS: phenobarbital 30mg tablet PEG SCH ×2 (09:07→21:30)
[2021-07-09] MEDS: heparin, porcine 5000 units/ml vial SQ SCH ×2 (09:07→21:30)
[2021-07-09] MEDS: thiamine 100mg tablet PEG SCH (09:07)
[2021-07-09] MEDS: furosemide 40mg/4ml inj IV SCH (09:07)
[2021-07-09] MEDS: prednisone 10mg tablet PO SCH (09:07)
[2021-07-09] MEDS: lansoprazole 15mg solutab PEG SCH (09:07)
[2021-07-09] MEDS: lactobacillus rhamnosus 10,000 MMU CELLS/CAPSULE PEG SCH ×2 (09:07→21:30)
[2021-07-09] MEDS: folic acid 1mg tablet PEG SCH (09:07)
[2021-07-09] MEDS: oxcarbazepine 150mg tablet PEG SCH ×3 (09:08→21:30)
--- NOTE | 2021-07-09 09:41 | NUR ---
F/u 07/09: Pt remains tolerating Bolus TF QID via PEG at goal GRV WNL. Pt to remain NPO per [employer] recs. Pt w/ a sacral DTI though no other open wounds per WOC assessment. LBM 07/09 receiving routine colace. No change to nutrition recommendations at this time, will continue to monitor. Recommendations: 1) Bolus TF via PEG QID at 0800, 1200, 1600, and 2000 using Jevity 1.2 w/ 410mL goal bolus. Initiate at 150ml bolus and advance by 65ml each bolus to goal as tolerated. To provide 1640mL total volume/day, 1968 kcals, 91g protein, and 1328mL water 2) Additional 40mL water flush before and after each bolus; monitor serum Na for adjustment needs 3) Monitor for bolus feeds tolerance and adjustment needs 4) Prealbumin q Tuesday/; daily scaled weights 5) Routine bowel alf BOLUS TF RECS: 1) Bolus TF via PEG QID using Jevity 1.5 or equivalent with goal of 375 mL. Begin at 125 mL/bolus and advance by 50 mL each bolus as tolerated to goal rate 2) Additional 80mL water flush before and after each bolus feed 3) Outpatient RD to titrate to goal rate and adjust recommendations as appropriate based on patient's estimated nutrient needs Addendum: 07/09/21 at [address] Amended: Links added.
[2021-07-09 10:00] VITALS: BP 106/68
[2021-07-09 14:00] VITALS: BP 100/58
[2021-07-09 18:25] VITALS: BP 109/74
[2021-07-09] MEDS: gabapentin 300mg capsule PEG SCH (21:30)
[2021-07-09] MEDS: donepezil 5mg tablet PEG SCH (21:30)
[2021-07-09] MEDS: temazepam 15mg capsule PEG PRN (22:09)
[2021-07-09 22:15] VITALS: BP 98/64
[2021-07-10 02:11] VITALS: BP 107/68
[2021-07-10] MEDS: ipratropium/albuterol 3ml nebule NEB SCH ×4 (03:37→21:03)
[2021-07-10 06:00] VITALS: BP 101/65
--- NOTE | 2021-07-10 06:34 | NUR ---
Problems reprioritized. Patient report given, questions answered & plan of care reviewed with Padmaja MAY.
[2021-07-10] MEDS: docusate sodium 100mg/10ml UD cup PEG SCH ×2 (08:00→20:21)
[2021-07-10] MEDS: K and/or MAG REPLACEMENT MC SCH ×2 (08:00→20:00)
[2021-07-10] MEDS: thiamine 100mg tablet PEG SCH (09:51)
[2021-07-10] MEDS: prednisone 10mg tablet PO SCH (09:51)
[2021-07-10] MEDS: furosemide 40mg/4ml inj IV SCH (09:52)
[2021-07-10] MEDS: lansoprazole 15mg solutab PEG SCH (09:52)
[2021-07-10] MEDS: folic acid 1mg tablet PEG SCH (09:52)
[2021-07-10] MEDS: lactobacillus rhamnosus 10,000 MMU CELLS/CAPSULE PEG SCH ×2 (09:52→20:20)
[2021-07-10] MEDS: phenobarbital 30mg tablet PEG SCH ×2 (09:53→20:20)
[2021-07-10] MEDS: oxcarbazepine 150mg tablet PEG SCH ×3 (09:53→20:19)
[2021-07-10] MEDS: heparin, porcine 5000 units/ml vial SQ SCH ×2 (09:54→20:21)
[2021-07-10 10:00] VITALS: BP 109/71
[2021-07-10] MEDS: fluconazole 100mg tablet PEG SCH (12:56)
[2021-07-10 15:00] VITALS: BP 90/60
--- NOTE | 2021-07-10 17:36 | NUR ---
Patient repositioned q2h, incontinence care provided. Condom catheter in place. Tube feedings administered at 0800, 1200, and 1600. No residual each time checked, tolerating feedings well. Skin is intact. Foam placed on sacrum, heels elevated off bed. Call light left in place. Free from injuries. Addendum: 07/10/21 at 1738 by Padmaja Shearer RN Per Dr. Anthony, patient's blood sugars can be checked twice a day, once in AM and PM.
[2021-07-10 18:00] VITALS: BP 106/72
--- NOTE | 2021-07-10 18:29 | NUR ---
Problems reprioritized. Patient report given, questions answered & plan of care reviewed with Marce RN.
[2021-07-10] MEDS: gabapentin 300mg capsule PEG SCH (20:20)
[2021-07-10] MEDS: donepezil 5mg tablet PEG SCH (20:20)
[2021-07-10 22:00] VITALS: BP 99/64
[2021-07-10] MEDS: HYDROcodone/acetaminophen 7.5MG/325MG per 15ml UD CUP PEG PRN (22:02)
[2021-07-11 02:00] VITALS: BP 109/71
[2021-07-11] MEDS: ipratropium/albuterol 3ml nebule NEB SCH ×4 (03:50→20:33)
[2021-07-11 06:00] VITALS: BP 89/61
--- NOTE | 2021-07-11 06:31 | NUR ---
Change of shift report given to Patricia MAY Addendum: 07/11/21 at 0632 by Marce Shearer RN Amended: Links added.
--- NOTE | 2021-07-11 06:43 | NUR ---
Patient in room MED 308. I have received report from YADIRA ALDRICH, and had the opportunity to ask questions and assume patient care.
[2021-07-11] MEDS: K and/or MAG REPLACEMENT MC SCH ×2 (06:50→20:00)
[2021-07-11] MEDS: docusate sodium 100mg/10ml UD cup PEG SCH ×2 (08:00→20:31)
[2021-07-11] MEDS: oxcarbazepine 150mg tablet PEG SCH ×3 (09:06→20:31)
[2021-07-11] MEDS: thiamine 100mg tablet PEG SCH (09:07)
[2021-07-11] MEDS: predniSONE 5mg tablet PO SCH (09:07)
[2021-07-11] MEDS: folic acid 1mg tablet PEG SCH (09:08)
[2021-07-11] MEDS: phenobarbital 30mg tablet PEG SCH ×2 (09:08→20:32)
[2021-07-11] MEDS: lactobacillus rhamnosus 10,000 MMU CELLS/CAPSULE PEG SCH ×2 (09:09→20:31)
[2021-07-11] MEDS: fluconazole 100mg tablet PEG SCH (09:09)
[2021-07-11] MEDS: furosemide 40mg/4ml inj IV SCH (09:09)
[2021-07-11] MEDS: heparin, porcine 5000 units/ml vial SQ SCH ×2 (09:10→20:32)
[2021-07-11 10:00] VITALS: BP 94/64
[2021-07-11] MEDS: lansoprazole 15mg solutab PEG SCH (12:54)
--- NOTE | 2021-07-11 14:39 | NUR ---
PAGE SENT PAGER ID: [phone] MESSAGE: [id number], DONAL HERNANDEZ, RT RECOMMEDS A NASAL TRACH SUCTION, MAY WE PLEASE HAVE AN ORDER. THANK YOU, MONTRELL Caldwell [phone]
[2021-07-11 15:00] VITALS: BP 94/56
--- NOTE | 2021-07-11 16:30 | NUR ---
PAGE SENT PAGER ID: [phone] MESSAGE: [id number], DONAL HERNANDEZ, RT RECOMMEDS A NASAL TRACH SUCTION, MAY WE PLEASE HAVE AN ORDER. THANK YOU, MONTRELL Caldwell [phone]
--- NOTE | 2021-07-11 18:38 | NUR ---
Problems reprioritized. Patient report given, questions answered & plan of care reviewed with YADIRA BOUDREAUX.
[2021-07-11 19:00] VITALS: BP 94/55
[2021-07-11] MEDS: gabapentin 300mg capsule PEG SCH (20:31)
[2021-07-11] MEDS: donepezil 5mg tablet PEG SCH (20:32)
[2021-07-11 23:00] VITALS: BP 100/64
[2021-07-12] MEDS: ipratropium/albuterol 3ml nebule NEB SCH ×4 (02:31→20:47)
[2021-07-12 03:00] VITALS: BP 88/59
--- NOTE | 2021-07-12 06:32 | NUR ---
Patient in room MED 308B. I have received report from YADIRA Rubin and had the opportunity to ask questions and assume patient care.
[2021-07-12 06:44] LABS: BASOPHILS % (AUTO) 0.8 % (0-1); EOSINOPHILS # (AUTO) 0.1 X10'3 (0-0.9); EOSINOPHILS % (AUTO) 2.1 % (0-6); HEMOGLOBIN 11.1 g/dl (14.0-17.9); LYMPHOCYTES # (AUTO) 1.8 X10'3 (1.1-4.8); LYMPHOCYTES % (AUTO) 29.8 % (21-51); MEAN CORPUSCULAR HEMOGLOBIN 31.3 PG (27.0-31.0); MEAN CORPUSCULAR HGB CONC 33.5 g/dL (33.0-36.5); MEAN CORPUSCULAR VOLUME 93.3 FL (78-98); MEAN PLATELET VOLUME 7.4 FL (7.4-10.4); MONOCYTES # (AUTO) 0.7 X10'3 (0-0.9); MONOCYTES % (AUTO) 10.8 % (2-12); NEUTROPHILS # (AUTO) 3.4 X10'3 (1.8-7.7); NEUTROPHILS % (AUTO) 56.5 % (42-75); PLATELET COUNT 347 X10'3 (140-440); RED BLOOD COUNT 3.54 X10'6 (4.70-6.10); RED CELL DISTRIBUTION WIDTH 17.9 % (11.5-14.5); WHITE BLOOD COUNT 6.1 X10'3 (4.5-11.0)
[2021-07-12 06:51] LABS: ALBUMIN 1.9 G/DL (3.4-5.0); ANION GAP 7 (8-16); BLOOD UREA NITROGEN 22 MG/DL (7-18); BUN/CREATININE RATIO 37.3 (5.4-32.0); CALCIUM 8.7 MG/DL (8.5-10.1); CHLORIDE 96 MMOL/L (99-107); CREATININE 0.59 MG/DL (0.60-1.10); GLUCOSE 86 MG/DL (70-104); SODIUM 133 MMOL/L (135-145); TOTAL CARBON DIOXIDE 30.4 MMOL/L (24-32); eGFR > 90 ML/MIN
[2021-07-12 06:52] LABS: POTASSIUM 4.7 MMOL/L (3.5-5.1)
[2021-07-12] MEDS: K and/or MAG REPLACEMENT MC SCH ×2 (08:00→20:00)
[2021-07-12] MEDS: heparin, porcine 5000 units/ml vial SQ SCH ×2 (08:45→20:19)
[2021-07-12] MEDS: furosemide 40mg/4ml inj IV SCH (08:45)
[2021-07-12] MEDS: fluconazole 100mg tablet PEG SCH (08:46)
[2021-07-12] MEDS: oxcarbazepine 150mg tablet PEG SCH ×3 (08:46→20:18)
[2021-07-12] MEDS: thiamine 100mg tablet PEG SCH (08:46)
[2021-07-12] MEDS: predniSONE 5mg tablet PO SCH (08:46)
[2021-07-12] MEDS: phenobarbital 30mg tablet PEG SCH ×2 (08:46→20:18)
[2021-07-12] MEDS: docusate sodium 100mg/10ml UD cup PEG SCH ×2 (08:47→20:17)
[2021-07-12] MEDS: lactobacillus rhamnosus 10,000 MMU CELLS/CAPSULE PEG SCH ×2 (08:47→20:18)
[2021-07-12] MEDS: lansoprazole 15mg solutab PEG SCH (08:47)
[2021-07-12] MEDS: folic acid 1mg tablet PEG SCH (08:47)
[2021-07-12 10:00] VITALS: BP 99/68
[2021-07-12 15:00] VITALS: BP 87/57
--- NOTE | 2021-07-12 18:13 | NUR ---
Problems reprioritized. Patient report given, questions answered & plan of care reviewed with YADIRA Rubin.
[2021-07-12 18:36] VITALS: BP 90/61
[2021-07-12] MEDS: donepezil 5mg tablet PEG SCH (20:18)
[2021-07-12] MEDS: gabapentin 300mg capsule PEG SCH (20:18)
[2021-07-12 22:00] VITALS: BP 95/61
[2021-07-13 02:00] VITALS: BP 95/57
[2021-07-13] MEDS: ipratropium/albuterol 3ml nebule NEB SCH ×4 (02:36→20:07)
--- NOTE | 2021-07-13 05:51 | NUR ---
Problems reprioritized. Patient report given, questions answered & plan of care reviewed with YADIRA Gomez.
[2021-07-13 06:00] VITALS: BP 85/55
--- NOTE | 2021-07-13 06:25 | NUR ---
Patient in room MED 308. I have received report from YADIRA BOUDREAUX, and had the opportunity to ask questions and assume patient care.
[2021-07-13] MEDS: HYDROcodone/acetaminophen 7.5MG/325MG per 15ml UD CUP PEG PRN ×2 (07:57→15:56)
[2021-07-13] MEDS: folic acid 1mg tablet PEG SCH (07:57)
[2021-07-13] MEDS: predniSONE 5mg tablet PO SCH (07:58)
[2021-07-13] MEDS: lansoprazole 15mg solutab PEG SCH (07:58)
[2021-07-13] MEDS: lactobacillus rhamnosus 10,000 MMU CELLS/CAPSULE PEG SCH ×2 (07:58→21:08)
[2021-07-13] MEDS: thiamine 100mg tablet PEG SCH (07:58)
[2021-07-13] MEDS: phenobarbital 30mg tablet PEG SCH ×2 (07:58→21:09)
[2021-07-13] MEDS: furosemide 40mg/4ml inj IV SCH (07:58)
[2021-07-13] MEDS: oxcarbazepine 150mg tablet PEG SCH ×3 (07:58→21:09)
[2021-07-13] MEDS: heparin, porcine 5000 units/ml vial SQ SCH ×2 (07:59→21:10)
[2021-07-13] MEDS: docusate sodium 100mg/10ml UD cup PEG SCH ×2 (07:59→21:11)
[2021-07-13] MEDS: K and/or MAG REPLACEMENT MC SCH ×2 (08:00→20:00)
[2021-07-13 10:00] VITALS: BP 94/61
[2021-07-13 15:00] VITALS: BP 98/63
[2021-07-13 18:00] VITALS: BP 111/69
--- NOTE | 2021-07-13 18:36 | NUR ---
Problems reprioritized. Patient report given, questions answered & plan of care reviewed with YADIRA WARE.
[2021-07-13] MEDS: donepezil 5mg tablet PEG SCH (21:08)
[2021-07-13] MEDS: gabapentin 300mg capsule PEG SCH (21:09)
[2021-07-13 22:00] VITALS: BP 112/67
[2021-07-13] MEDS: magnesium hydroxide 30ml (MOM) UD suspension PEG PRN (23:31)
[2021-07-14] VITALS (7 sets, daily range): BP systolic 96–128; BP diastolic 57–72
[2021-07-14] MEDS: ipratropium/albuterol 3ml nebule NEB SCH ×4 (02:32→20:16)
[2021-07-14 06:02] LABS: BASOPHILS # (AUTO) 0.1 X10'3 (0-0.2); BASOPHILS % (AUTO) 1.1 % (0-1); EOSINOPHILS # (AUTO) 0.1 X10'3 (0-0.9); EOSINOPHILS % (AUTO) 2.6 % (0-6); HEMATOCRIT 33.6 % (42.0-52.0); HEMOGLOBIN 11.3 g/dl (14.0-17.9); LYMPHOCYTES # (AUTO) 1.7 X10'3 (1.1-4.8); LYMPHOCYTES % (AUTO) 30.9 % (21-51); MEAN CORPUSCULAR HEMOGLOBIN 31.5 PG (27.0-31.0); MEAN CORPUSCULAR HGB CONC 33.7 g/dL (33.0-36.5); MEAN CORPUSCULAR VOLUME 93.5 FL (78-98); MEAN PLATELET VOLUME 7.3 FL (7.4-10.4); MONOCYTES # (AUTO) 0.6 X10'3 (0-0.9); MONOCYTES % (AUTO) 10.7 % (2-12); NEUTROPHILS % (AUTO) 54.7 % (42-75); PLATELET COUNT 304 X10'3 (140-440); RED CELL DISTRIBUTION WIDTH 17.8 % (11.5-14.5); WHITE BLOOD COUNT 5.5 X10'3 (4.5-11.0)
--- NOTE | 2021-07-14 06:05 | NUR ---
received report from luís, rn
[2021-07-14 06:12] LABS: ALBUMIN 2.2 G/DL (3.4-5.0); ANION GAP 8 (8-16); BLOOD UREA NITROGEN 26 MG/DL (7-18); BUN/CREATININE RATIO 40.6 (5.4-32.0); CHLORIDE 96 MMOL/L (99-107); CREATININE 0.64 MG/DL (0.60-1.10); GLUCOSE 92 MG/DL (70-104); POTASSIUM 3.9 MMOL/L (3.5-5.1); SODIUM 137 MMOL/L (135-145); TOTAL CARBON DIOXIDE 32.9 MMOL/L (24-32); eGFR > 90 ML/MIN
[2021-07-14] MEDS: K and/or MAG REPLACEMENT MC SCH ×2 (08:00→20:00)
--- NOTE | 2021-07-14 08:00 | NUR ---
unable to obtain pt daily wt at this time
[2021-07-14] MEDS: oxcarbazepine 150mg tablet PEG SCH ×3 (08:17→21:35)
[2021-07-14] MEDS: thiamine 100mg tablet PEG SCH (08:18)
[2021-07-14] MEDS: folic acid 1mg tablet PEG SCH (08:18)
[2021-07-14] MEDS: predniSONE 5mg tablet PO SCH (08:18)
[2021-07-14] MEDS: lansoprazole 15mg solutab PEG SCH (08:19)
[2021-07-14] MEDS: lactobacillus rhamnosus 10,000 MMU CELLS/CAPSULE PEG SCH ×2 (08:19→21:27)
[2021-07-14] MEDS: phenobarbital 30mg tablet PEG SCH ×2 (08:20→21:33)
[2021-07-14] MEDS: docusate sodium 100mg/10ml UD cup PEG SCH ×2 (08:20→20:00)
[2021-07-14] MEDS: heparin, porcine 5000 units/ml vial SQ SCH ×2 (08:21→21:29)
[2021-07-14] MEDS: furosemide 40mg/4ml inj IV SCH (08:23)
[2021-07-14] MEDS: HYDROcodone/acetaminophen 7.5MG/325MG per 15ml UD CUP PEG PRN ×3 (12:58→21:25)
--- NOTE | 2021-07-14 14:50 | NUR ---
F/u 07/14: Pt remains tolerating Bolus TF QID via PEG at goal GRV WNL. Pt to remain NPO per [employer] recs. Pt w/ a sacral DTI though no other open wounds per WOC assessment. LBM 07/14 receiving routine and PRN bowel care. No change to nutrition recommendations at this time, will continue to monitor. Recommendations: 1) Bolus TF via PEG QID at 0800, 1200, 1600, and 2000 using Jevity 1.2 w/ 410mL goal bolus. Initiate at 150ml bolus and advance by 65ml each bolus to goal as tolerated. To provide 1640mL total volume/day, 1968 kcals, 91g protein, and 1328mL water 2) Additional 40mL water flush before and after each bolus; monitor serum Na for adjustment needs 3) Monitor for bolus feeds tolerance and adjustment needs 4) Prealbumin q Tuesday/; daily scaled weights 5) Routine bowel correction BOLUS TF RECS: 1) Bolus TF via PEG QID using Jevity 1.5 or equivalent with goal of 375 mL. Begin at 125 mL/bolus and advance by 50 mL each bolus as tolerated to goal rate 2) Additional 80mL water flush before and after each bolus feed 3) Outpatient RD to titrate to goal rate and adjust recommendations as appropriate based on patient's estimated nutrient needs Addendum: 07/14/21 at [address] Amended: Links added.
--- NOTE | 2021-07-14 18:19 | NUR ---
gave report to crissy kate
[2021-07-14] MEDS: gabapentin 300mg capsule PEG SCH (21:27)
[2021-07-14] MEDS: donepezil 5mg tablet PEG SCH (21:36)
--- NOTE | 2021-07-14 23:15 | NUR ---
Was not able to check glu before giving feeding. At 2100 it was 186.
[2021-07-15 02:00] VITALS: BP 108/53
[2021-07-15] MEDS: ipratropium/albuterol 3ml nebule NEB SCH ×4 (02:46→19:58)
[2021-07-15] MEDS: HYDROcodone/acetaminophen 7.5MG/325MG per 15ml UD CUP PEG PRN ×2 (02:54→15:03)
[2021-07-15 06:00] VITALS: BP 98/55
[2021-07-15] MEDS: lactobacillus rhamnosus 10,000 MMU CELLS/CAPSULE PEG SCH ×2 (07:21→20:22)
[2021-07-15] MEDS: predniSONE 5mg tablet PO SCH (07:21)
[2021-07-15] MEDS: thiamine 100mg tablet PEG SCH (07:22)
[2021-07-15] MEDS: oxcarbazepine 150mg tablet PEG SCH ×3 (07:23→21:45)
[2021-07-15] MEDS: phenobarbital 30mg tablet PEG SCH ×2 (07:23→20:22)
[2021-07-15] MEDS: folic acid 1mg tablet PEG SCH (07:23)
[2021-07-15] MEDS: heparin, porcine 5000 units/ml vial SQ SCH ×2 (07:23→20:22)
[2021-07-15] MEDS: lansoprazole 15mg solutab PEG SCH (07:23)
[2021-07-15] MEDS: docusate sodium 100mg/10ml UD cup PEG SCH ×2 (07:24→20:22)
[2021-07-15] MEDS: furosemide 40mg/4ml inj IV SCH (07:24)
[2021-07-15] MEDS: K and/or MAG REPLACEMENT MC SCH ×2 (08:00→20:00)
[2021-07-15 12:11] VITALS: BP 114/68
[2021-07-15 18:00] VITALS: BP 105/65
[2021-07-15] MEDS: donepezil 5mg tablet PEG SCH (20:22)
[2021-07-15] MEDS: gabapentin 300mg capsule PEG SCH (20:22)
--- NOTE | 2021-07-15 21:10 | NUR ---
Blood sugar documentation is for 2000. Addendum: 07/15/21 at 2111 by Graciela Shearer RN Amended: Links added.
[2021-07-15 22:00] VITALS: BP 137/83
[2021-07-16 02:00] VITALS: BP 107/65
[2021-07-16] MEDS: ipratropium/albuterol 3ml nebule NEB SCH ×3 (02:44→20:10)
[2021-07-16 06:00] VITALS: BP 116/71
[2021-07-16] MEDS: K and/or MAG REPLACEMENT MC SCH ×2 (08:00→18:27)
[2021-07-16] MEDS: heparin, porcine 5000 units/ml vial SQ SCH ×2 (08:57→20:05)
[2021-07-16] MEDS: folic acid 1mg tablet PEG SCH (08:57)
[2021-07-16] MEDS: lansoprazole 15mg solutab PEG SCH (08:57)
[2021-07-16] MEDS: furosemide 40mg/4ml inj IV SCH (08:57)
[2021-07-16] MEDS: docusate sodium 100mg/10ml UD cup PEG SCH ×2 (08:57→20:04)
[2021-07-16] MEDS: lactobacillus rhamnosus 10,000 MMU CELLS/CAPSULE PEG SCH ×2 (08:57→20:06)
[2021-07-16] MEDS: magnesium hydroxide 30ml (MOM) UD suspension PEG PRN (09:05)
[2021-07-16] MEDS: thiamine 100mg tablet PEG SCH (09:10)
[2021-07-16] MEDS: predniSONE 5mg tablet PO SCH (09:10)
[2021-07-16] MEDS: phenobarbital 30mg tablet PEG SCH ×2 (09:10→20:05)
[2021-07-16] MEDS: oxcarbazepine 150mg tablet PEG SCH ×3 (09:10→20:05)
[2021-07-16] MEDS: acetaminophen 325mg/10.15ml oral unit dose solution PEG PRN (09:11)
[2021-07-16 11:00] VITALS: BP 107/64
[2021-07-16 15:00] VITALS: BP 111/72
[2021-07-16 18:00] VITALS: BP 105/68
[2021-07-16] MEDS: donepezil 5mg tablet PEG SCH (20:04)
[2021-07-16] MEDS: gabapentin 300mg capsule PEG SCH (20:05)
[2021-07-16 22:00] VITALS: BP 134/69
[2021-07-17 02:00] VITALS: BP 116/72
[2021-07-17] MEDS: ipratropium/albuterol 3ml nebule NEB SCH ×4 (02:34→19:37)
[2021-07-17 06:00] VITALS: BP 110/70
--- NOTE | 2021-07-17 06:05 | NUR ---
Patient in room PCU 3018. I have received report from Graciela MAY and had the opportunity to ask questions and assume patient care.
[2021-07-17] MEDS: K and/or MAG REPLACEMENT MC SCH ×2 (08:00→20:00)
[2021-07-17] MEDS: lansoprazole 15mg solutab PEG SCH (08:01)
[2021-07-17] MEDS: predniSONE 5mg tablet PO SCH (08:02)
[2021-07-17] MEDS: oxcarbazepine 150mg tablet PEG SCH ×3 (08:02→20:30)
[2021-07-17] MEDS: lactobacillus rhamnosus 10,000 MMU CELLS/CAPSULE PEG SCH ×2 (08:02→20:30)
[2021-07-17] MEDS: phenobarbital 30mg tablet PEG SCH ×2 (08:02→20:30)
[2021-07-17] MEDS: folic acid 1mg tablet PEG SCH (08:02)
[2021-07-17] MEDS: docusate sodium 100mg/10ml UD cup PEG SCH ×2 (08:02→20:31)
[2021-07-17] MEDS: thiamine 100mg tablet PEG SCH (08:02)
[2021-07-17] MEDS: furosemide 40mg/4ml inj IV SCH (08:03)
[2021-07-17] MEDS: heparin, porcine 5000 units/ml vial SQ SCH ×2 (08:03→20:31)
[2021-07-17 11:00] VITALS: BP 90/57
[2021-07-17 12:23] LABS: BASOPHILS % (AUTO) 0.9 % (0-1); EOSINOPHILS # (AUTO) 0.2 X10'3 (0-0.9); EOSINOPHILS % (AUTO) 3.2 % (0-6); HEMOGLOBIN 11.7 g/dl (14.0-17.9); LYMPHOCYTES # (AUTO) 1.3 X10'3 (1.1-4.8); LYMPHOCYTES % (AUTO) 23.2 % (21-51); MEAN CORPUSCULAR HEMOGLOBIN 31.3 PG (27.0-31.0); MEAN CORPUSCULAR HGB CONC 33.5 g/dL (33.0-36.5); MEAN CORPUSCULAR VOLUME 93.6 FL (78-98); MEAN PLATELET VOLUME 7.6 FL (7.4-10.4); MONOCYTES # (AUTO) 0.7 X10'3 (0-0.9); MONOCYTES % (AUTO) 11.3 % (2-12); NEUTROPHILS # (AUTO) 3.5 X10'3 (1.8-7.7); NEUTROPHILS % (AUTO) 61.4 % (42-75); PLATELET COUNT 250 X10'3 (140-440); RED BLOOD COUNT 3.74 X10'6 (4.70-6.10); WHITE BLOOD COUNT 5.8 X10'3 (4.5-11.0)
[2021-07-17 12:57] LABS: ALBUMIN 2.1 G/DL (3.4-5.0); ANION GAP 9 (8-16); BLOOD UREA NITROGEN 21 MG/DL (7-18); BUN/CREATININE RATIO 33.3 (5.4-32.0); CALCIUM 8.7 MG/DL (8.5-10.1); CHLORIDE 95 MMOL/L (99-107); CREATININE 0.63 MG/DL (0.60-1.10); GLUCOSE 127 MG/DL (70-104); POTASSIUM 3.6 MMOL/L (3.5-5.1); SODIUM 134 MMOL/L (135-145); TOTAL CARBON DIOXIDE 29.9 MMOL/L (24-32); eGFR > 90 ML/MIN
[2021-07-17 15:00] VITALS: BP 93/66
[2021-07-17 18:00] VITALS: BP 90/54
--- NOTE | 2021-07-17 18:26 | NUR ---
Problems reprioritized. Patient report given, questions answered & plan of care reviewed with Graciela MAY.
[2021-07-17] MEDS: donepezil 5mg tablet PEG SCH (20:31)
[2021-07-17] MEDS: gabapentin 300mg capsule PEG SCH (20:31)
[2021-07-17 22:00] VITALS: BP 115/64
[2021-07-18 02:39] VITALS: BP 108/70
[2021-07-18] MEDS: ipratropium/albuterol 3ml nebule NEB SCH ×4 (02:57→21:08)
--- NOTE | 2021-07-18 06:10 | NUR ---
Patient in room PCU 3018. I have received report from Graciela MAY and had the opportunity to ask questions and assume patient care.
[2021-07-18] MEDS: furosemide 40mg/4ml inj IV SCH (08:00)
[2021-07-18] MEDS: K and/or MAG REPLACEMENT MC SCH ×2 (08:00→20:00)
[2021-07-18] MEDS: folic acid 1mg tablet PEG SCH (08:16)
[2021-07-18] MEDS: docusate sodium 100mg/10ml UD cup PEG SCH ×2 (08:16→20:42)
[2021-07-18] MEDS: oxcarbazepine 150mg tablet PEG SCH ×3 (08:16→20:45)
[2021-07-18] MEDS: lansoprazole 15mg solutab PEG SCH (08:16)
[2021-07-18] MEDS: lactobacillus rhamnosus 10,000 MMU CELLS/CAPSULE PEG SCH ×2 (08:16→20:42)
[2021-07-18] MEDS: thiamine 100mg tablet PEG SCH (08:16)
[2021-07-18] MEDS: predniSONE 5mg tablet PO SCH (08:16)
[2021-07-18] MEDS: phenobarbital 30mg tablet PEG SCH ×2 (08:17→20:43)
[2021-07-18] MEDS: heparin, porcine 5000 units/ml vial SQ SCH ×2 (08:18→20:46)
[2021-07-18] MEDS: acetaminophen 325mg/10.15ml oral unit dose solution PEG PRN (10:32)
--- NOTE | 2021-07-18 12:31 | NUR ---
Reassessment: Pt continues receiving bolus TF QID with no s/s of intolerance. LBM 07/16 documented as small with last large BM 07/13. Pt receiving routine bowel care with PRN bowel care available, last documented to be given 07/16 per EMR. Sacral DTI resolved per WOC note. No changes to nutrition recommendations at this time. Will continue to follow. Recommendations: 1) Bolus TF via PEG QID at 0800, 1200, 1600, and 2000 using Jevity 1.2 w/ 410mL goal bolus. Initiate at 150ml bolus and advance by 65ml each bolus to goal as tolerated. To provide 1640mL total volume/day, 1968 kcal, 91g protein, and 1328mL water 2) Additional 40mL water flush before and after each bolus; monitor serum Na for adjustment needs 3) Monitor for bolus feeds tolerance and adjustment needs 4) Prealbumin q Tuesday/ 5) Daily scaled weights 6) Routine bowel care; utilize PRN bowel care given no significant BM x 5 days HOME BOLUS TF RECS: 1) Bolus TF via PEG QID using Jevity 1.5 or equivalent with goal of 375 mL. Begin at 125 mL/bolus and advance by 50 mL each bolus as tolerated to goal rate 2) Additional 80mL water flush before and after each bolus feed 3) Outpatient RD to titrate to goal rate and adjust recommendations as appropriate based on patient's estimated nutrient needs Addendum: 07/18/21 at [address] Amended: Links added.
[2021-07-18 18:00] VITALS: BP 100/70
--- NOTE | 2021-07-18 18:20 | NUR ---
Problems reprioritized. Patient report given, questions answered & plan of care reviewed with Lucero MAY.
--- NOTE | 2021-07-18 18:27 | NUR ---
Patient in room PCU 3018. I have received report from Ernesto MAY and had the opportunity to ask questions and assume patient care.
[2021-07-18] MEDS: gabapentin 300mg capsule PEG SCH (20:43)
[2021-07-18] MEDS: donepezil 5mg tablet PEG SCH (20:44)
[2021-07-18 22:00] VITALS: BP 97/69
[2021-07-19] MEDS: HYDROcodone/acetaminophen 7.5MG/325MG per 15ml UD CUP PEG PRN ×2 (01:00→10:29)
[2021-07-19] MEDS: ipratropium/albuterol 3ml nebule NEB SCH ×4 (02:34→20:00)
[2021-07-19 04:00] VITALS: BP 133/74
--- NOTE | 2021-07-19 06:45 | NUR ---
Patient in room PCU 3018B. I have received report from YADIRA COYLE and had the opportunity to ask questions and assume patient care.
[2021-07-19 07:00] VITALS: BP 100/79
--- NOTE | 2021-07-19 07:15 | NUR ---
Problems reprioritized. Patient report given, questions answered & plan of care reviewed with Tigist MAY.
[2021-07-19] MEDS: K and/or MAG REPLACEMENT MC SCH ×2 (08:00→20:00)
[2021-07-19] MEDS: phenobarbital 30mg tablet PEG SCH ×2 (10:25→20:06)
[2021-07-19] MEDS: thiamine 100mg tablet PEG SCH (10:26)
[2021-07-19] MEDS: lactobacillus rhamnosus 10,000 MMU CELLS/CAPSULE PEG SCH ×2 (10:26→20:06)
[2021-07-19] MEDS: lansoprazole 15mg solutab PEG SCH (10:26)
[2021-07-19] MEDS: folic acid 1mg tablet PEG SCH (10:26)
[2021-07-19] MEDS: docusate sodium 100mg/10ml UD cup PEG SCH ×2 (10:27→20:05)
[2021-07-19] MEDS: oxcarbazepine 150mg tablet PEG SCH ×3 (10:27→20:06)
[2021-07-19] MEDS: furosemide 40 MG/4 ML oral solution UD cup PEG SCH (10:27)
[2021-07-19] MEDS: heparin, porcine 5000 units/ml vial SQ SCH ×2 (10:30→20:07)
[2021-07-19 15:00] VITALS: BP 90/62
[2021-07-19 18:00] VITALS: BP 98/69
--- NOTE | 2021-07-19 18:45 | NUR ---
Problems reprioritized. Patient report given, questions answered & plan of care reviewed with YADIRA FRIAS.
[2021-07-19] MEDS: donepezil 5mg tablet PEG SCH (20:06)
[2021-07-19] MEDS: gabapentin 300mg capsule PEG SCH (20:06)
[2021-07-19 22:00] VITALS: BP 107/66
[2021-07-20 02:00] VITALS: BP 106/67
[2021-07-20] MEDS: ipratropium/albuterol 3ml nebule NEB SCH ×4 (03:32→20:41)
--- NOTE | 2021-07-20 06:08 | NUR ---
Patient in room PCU 3018. I have received report from YADIRA Matthews and had the opportunity to ask questions and assume patient care.
[2021-07-20 06:58] VITALS: BP 108/71
[2021-07-20] MEDS: K and/or MAG REPLACEMENT MC SCH ×2 (08:00→19:38)
[2021-07-20] MEDS: oxcarbazepine 150mg tablet PEG SCH ×3 (08:27→20:38)
[2021-07-20] MEDS: HYDROcodone/acetaminophen 7.5MG/325MG per 15ml UD CUP PEG PRN (08:27)
[2021-07-20] MEDS: docusate sodium 100mg/10ml UD cup PEG SCH ×2 (08:27→20:36)
[2021-07-20] MEDS: lansoprazole 15mg solutab PEG SCH (08:28)
[2021-07-20] MEDS: furosemide 40 MG/4 ML oral solution UD cup PEG SCH (08:28)
[2021-07-20] MEDS: phenobarbital 30mg tablet PEG SCH ×2 (08:28→20:37)
[2021-07-20] MEDS: lactobacillus rhamnosus 10,000 MMU CELLS/CAPSULE PEG SCH ×2 (08:28→20:36)
[2021-07-20] MEDS: folic acid 1mg tablet PEG SCH (08:28)
[2021-07-20] MEDS: heparin, porcine 5000 units/ml vial SQ SCH ×2 (08:28→20:37)
[2021-07-20] MEDS: thiamine 100mg tablet PEG SCH (08:28)
[2021-07-20 11:23] VITALS: BP 90/60
[2021-07-20 15:00] VITALS: BP 101/64
[2021-07-20 18:00] VITALS: BP 97/61
--- NOTE | 2021-07-20 18:23 | NUR ---
Problems reprioritized. Patient report given, questions answered & plan of care reviewed with YADIRA Matthews.
[2021-07-20] MEDS: donepezil 5mg tablet PEG SCH (20:37)
[2021-07-20] MEDS: gabapentin 300mg capsule PEG SCH (20:37)
[2021-07-20 22:00] VITALS: BP 98/60
[2021-07-21] MEDS: ipratropium/albuterol 3ml nebule NEB SCH ×4 (01:38→20:57)
[2021-07-21 02:00] VITALS: BP 92/56
[2021-07-21 06:00] VITALS: BP 85/58
[2021-07-21] MEDS: K and/or MAG REPLACEMENT MC SCH ×2 (08:00→20:00)
[2021-07-21] MEDS: oxcarbazepine 150mg tablet PEG SCH ×3 (09:29→20:33)
[2021-07-21] MEDS: phenobarbital 30mg tablet PEG SCH ×2 (09:29→20:32)
[2021-07-21] MEDS: thiamine 100mg tablet PEG SCH (09:29)
[2021-07-21] MEDS: HYDROcodone/acetaminophen 7.5MG/325MG per 15ml UD CUP PEG PRN (09:30)
[2021-07-21] MEDS: lactobacillus rhamnosus 10,000 MMU CELLS/CAPSULE PEG SCH ×2 (09:30→20:32)
[2021-07-21] MEDS: lansoprazole 15mg solutab PEG SCH (09:30)
[2021-07-21] MEDS: docusate sodium 100mg/10ml UD cup PEG SCH ×2 (09:30→20:31)
[2021-07-21] MEDS: polyethylene glycol 3350 17gm powd pack PEG PRN (09:31)
[2021-07-21] MEDS: folic acid 1mg tablet PEG SCH (09:31)
[2021-07-21] MEDS: furosemide 40 MG/4 ML oral solution UD cup PEG SCH (09:31)
[2021-07-21] MEDS: heparin, porcine 5000 units/ml vial SQ SCH ×2 (09:50→20:31)
[2021-07-21 11:00] VITALS: BP 89/58
[2021-07-21 15:00] VITALS: BP 96/63
[2021-07-21 18:00] VITALS: BP 99/57
--- NOTE | 2021-07-21 18:40 | NUR ---
Problems reprioritized. Patient report given to RN Cassie, questions answered & plan of care reviewed with YADIRA Matthews.
[2021-07-21] MEDS: donepezil 5mg tablet PEG SCH (20:32)
[2021-07-21] MEDS: gabapentin 300mg capsule PEG SCH (20:33)
[2021-07-21 22:00] VITALS: BP 99/62
[2021-07-22 02:00] VITALS: BP 104/61
[2021-07-22] MEDS: ipratropium/albuterol 3ml nebule NEB SCH ×4 (03:12→20:11)
[2021-07-22 06:00] VITALS: BP 97/63
--- NOTE | 2021-07-22 06:24 | NUR ---
Patient in room PCU 3018. I have received report from Selvin and had the opportunity to ask questions and assume patient care.
[2021-07-22] MEDS: K and/or MAG REPLACEMENT MC SCH ×2 (08:00→20:00)
[2021-07-22] MEDS: oxcarbazepine 150mg tablet PEG SCH ×3 (09:13→21:30)
[2021-07-22] MEDS: lactobacillus rhamnosus 10,000 MMU CELLS/CAPSULE PEG SCH ×2 (09:13→21:29)
[2021-07-22] MEDS: docusate sodium 100mg/10ml UD cup PEG SCH ×2 (09:13→21:29)
[2021-07-22] MEDS: heparin, porcine 5000 units/ml vial SQ SCH ×2 (09:13→21:30)
[2021-07-22] MEDS: lansoprazole 15mg solutab PEG SCH (09:13)
[2021-07-22] MEDS: furosemide 40 MG/4 ML oral solution UD cup PEG SCH (09:14)
[2021-07-22] MEDS: folic acid 1mg tablet PEG SCH (09:14)
[2021-07-22] MEDS: phenobarbital 30mg tablet PEG SCH ×2 (09:14→21:29)
[2021-07-22] MEDS: thiamine 100mg tablet PEG SCH (09:14)
[2021-07-22] MEDS: polyethylene glycol 3350 17gm powd pack PEG PRN (09:15)
[2021-07-22 11:00] VITALS: BP 93/61
--- NOTE | 2021-07-22 11:18 | NUR ---
Reassessment: Pt continues receiving bolus TF QID with no s/s of intolerance. Noted no labs other than blood sugar checks since 07/17. D/w RN recommendation to continue labs with physician approval so RD can monitor need to adjust nutrition recommendations and ensure continuance of appropriate nutrition as last serum Na was slightly low. LBM 07/20 documented as small with last large BM 07/13. Pt receiving routine bowel care BID and received first dose of PRN Miralax 07/21 with second dose today per EMR. PRN MoM also available, last given 07/16 per EMR. Will continue to follow and make recommendations as appropriate. Recommendations: 1) Bolus TF via PEG QID at 0800, 1200, 1600, and 2000 using Jevity 1.2 w/ 410mL goal bolus. Initiate at 150ml bolus and advance by 65ml each bolus to goal as tolerated. To provide 1640mL total volume/day, 1968 kcal, 91g protein, and 1328mL water 2) Additional 40mL water flush before and after each bolus; monitor serum Na for adjustment needs- need routine labs 3) Prealbumin q Tuesday/ 4) Daily scaled weights 5) Routine bowel care; utilize PRN bowel care given no significant BM x 9 days HOME BOLUS TF RECS: 1) Bolus TF via PEG QID using Jevity 1.5 or equivalent with goal of 375 mL. Begin at goal rate as pt tolerating higher volume bolus feeds during admit 2) Additional 80 mL water flush before and after each bolus feed 3) Outpatient RD to titrate to goal rate and adjust recommendations as appropriate based on patient's estimated nutrient needs Addendum: 07/22/21 at [address] Amended: Links added.
[2021-07-22 15:00] VITALS: BP 130/70
[2021-07-22 18:00] VITALS: BP 95/58
--- NOTE | 2021-07-22 19:24 | NUR ---
Problems reprioritized. Patient report given, questions answered & plan of care reviewed with Mady.
[2021-07-22] MEDS: gabapentin 300mg capsule PEG SCH (21:29)
[2021-07-22] MEDS: donepezil 5mg tablet PEG SCH (21:29)
[2021-07-22 22:00] VITALS: BP 100/61
--- NOTE | 2021-07-22 22:30 | NUR ---
PM care done, pt not asleep., encouraged to watch TV. HOB elevated lower extremities place on pillow
[2021-07-23 02:00] VITALS: BP 107/61
--- NOTE | 2021-07-23 02:00 | NUR ---
Residual checked 15 ml obtained.
[2021-07-23] MEDS: ipratropium/albuterol 3ml nebule NEB SCH ×4 (03:09→20:21)
--- NOTE | 2021-07-23 04:00 | NUR ---
No change in mental status. Pt resting no signs of agitation or confusion
[2021-07-23 06:00] VITALS: BP 103/64
[2021-07-23] MEDS: K and/or MAG REPLACEMENT MC SCH ×2 (08:00→20:00)
[2021-07-23] MEDS: phenobarbital 30mg tablet PEG SCH ×2 (08:56→20:41)
[2021-07-23] MEDS: docusate sodium 100mg/10ml UD cup PEG SCH ×2 (08:56→20:40)
[2021-07-23] MEDS: oxcarbazepine 150mg tablet PEG SCH ×3 (08:57→21:44)
[2021-07-23] MEDS: folic acid 1mg tablet PEG SCH (08:57)
[2021-07-23] MEDS: furosemide 40 MG/4 ML oral solution UD cup PEG SCH (08:57)
[2021-07-23] MEDS: lactobacillus rhamnosus 10,000 MMU CELLS/CAPSULE PEG SCH ×2 (08:57→20:40)
[2021-07-23] MEDS: thiamine 100mg tablet PEG SCH (08:57)
[2021-07-23] MEDS: heparin, porcine 5000 units/ml vial SQ SCH ×2 (08:58→20:42)
[2021-07-23] MEDS: lansoprazole 15mg solutab PEG SCH (09:02)
[2021-07-23 11:00] VITALS: BP 94/57
[2021-07-23 15:00] VITALS: BP 88/58
[2021-07-23 18:00] VITALS: BP 99/60
--- NOTE | 2021-07-23 18:54 | NUR ---
Patient in room PCU 3018. I have received report from YADIRA Earl, and had the opportunity to ask questions and assume patient care. Pt is stable, no c/o voiced at this time, pt awaiting placement.
--- NOTE | 2021-07-23 18:56 | NUR ---
Problems reprioritized. Patient report given, questions answered & plan of care reviewed with Mady MAY.
[2021-07-23] MEDS: gabapentin 300mg capsule PEG SCH (20:40)
[2021-07-23] MEDS: donepezil 5mg tablet PEG SCH (20:40)
[2021-07-23 22:00] VITALS: BP 91/54
--- NOTE | 2021-07-23 22:55 | NUR ---
Pt on bolus feed, BS this pm, 142, no insulin required, has not meant criteria for Insulin adjustment coverage. Pt is stable.
[2021-07-24] MEDS: HYDROcodone/acetaminophen 7.5MG/325MG per 15ml UD CUP PEG PRN (01:58)
[2021-07-24 02:00] VITALS: BP 92/50
[2021-07-24] MEDS: ipratropium/albuterol 3ml nebule NEB SCH ×4 (03:04→20:25)
[2021-07-24 06:00] VITALS: BP 93/52
--- NOTE | 2021-07-24 06:19 | NUR ---
Problems reprioritized. Patient report given, questions answered & plan of care reviewed with
[2021-07-24] MEDS: K and/or MAG REPLACEMENT MC SCH ×2 (08:00→20:00)
[2021-07-24] MEDS: thiamine 100mg tablet PEG SCH (08:00)
[2021-07-24] MEDS: folic acid 1mg tablet PEG SCH (08:00)
[2021-07-24] MEDS: polyethylene glycol 3350 17gm powd pack PEG PRN (08:59)
[2021-07-24] MEDS: oxcarbazepine 150mg tablet PEG SCH ×3 (08:59→20:56)
[2021-07-24] MEDS: lactobacillus rhamnosus 10,000 MMU CELLS/CAPSULE PEG SCH ×2 (09:00→20:58)
[2021-07-24] MEDS: phenobarbital 30mg tablet PEG SCH ×2 (09:00→20:56)
[2021-07-24] MEDS: furosemide 40 MG/4 ML oral solution UD cup PEG SCH (09:00)
[2021-07-24] MEDS: docusate sodium 100mg/10ml UD cup PEG SCH ×2 (09:01→20:56)
[2021-07-24] MEDS: heparin, porcine 5000 units/ml vial SQ SCH ×2 (09:01→20:57)
[2021-07-24] MEDS: lansoprazole 15mg solutab PEG SCH (09:01)
[2021-07-24 11:00] VITALS: BP 94/54
[2021-07-24 15:00] VITALS: BP 105/63
[2021-07-24 18:00] VITALS: BP 92/60
--- NOTE | 2021-07-24 18:37 | NUR ---
Problems reprioritized. Patient report given, questions answered & plan of care reviewed with YADIRA Alves.
[2021-07-24] MEDS: magnesium hydroxide 30ml (MOM) UD suspension PEG PRN (20:57)
[2021-07-24] MEDS: gabapentin 300mg capsule PEG SCH (20:58)
[2021-07-24] MEDS: acetaminophen 325mg/10.15ml oral unit dose solution PEG PRN (20:58)
[2021-07-24] MEDS: donepezil 5mg tablet PEG SCH (20:58)
[2021-07-24 22:00] VITALS: BP 130/64
[2021-07-25] MEDS: ipratropium/albuterol 3ml nebule NEB SCH ×4 (03:13→20:45)
--- NOTE | 2021-07-25 05:44 | NUR ---
Mr wallis has been assessed as indicated. He was successfully treated for a mild headache x1. He was also successfully treated for constipation with MOM. He has 3xl soft brom stool. TF boluses are well tolerated with no residuals. He continues to use a yankeur to suction secretions as needed with out assistance. Yanker was switched out this shift. his secretions are very thick and tenacious he has rancorous lung sounds. The condom cath was changed 2x this shift because of displacement as well as being soiled with BM. He tolerates being repositioned well. He is presently resting quietly
[2021-07-25 06:00] VITALS: BP 125/76
--- NOTE | 2021-07-25 06:30 | NUR ---
Problems reprioritized. Patient report given, questions answered & plan of care reviewed with JHON MAY.
[2021-07-25] MEDS: K and/or MAG REPLACEMENT MC SCH ×2 (08:00→19:12)
[2021-07-25] MEDS: thiamine 100mg tablet PEG SCH (08:15)
[2021-07-25] MEDS: docusate sodium 100mg/10ml UD cup PEG SCH ×2 (08:15→20:00)
[2021-07-25] MEDS: lansoprazole 15mg solutab PEG SCH (08:15)
[2021-07-25] MEDS: folic acid 1mg tablet PEG SCH (08:15)
[2021-07-25] MEDS: lactobacillus rhamnosus 10,000 MMU CELLS/CAPSULE PEG SCH ×2 (08:16→20:47)
[2021-07-25] MEDS: oxcarbazepine 150mg tablet PEG SCH ×3 (08:16→20:47)
[2021-07-25] MEDS: furosemide 40 MG/4 ML oral solution UD cup PEG SCH (08:16)
[2021-07-25] MEDS: phenobarbital 30mg tablet PEG SCH ×2 (08:16→20:54)
[2021-07-25] MEDS: heparin, porcine 5000 units/ml vial SQ SCH ×2 (08:17→20:47)
[2021-07-25 11:00] VITALS: BP 93/48
[2021-07-25 15:00] VITALS: BP 92/59
[2021-07-25 18:00] VITALS: BP 104/68
--- NOTE | 2021-07-25 18:37 | NUR ---
Problems reprioritized. Patient report given, questions answered & plan of care reviewed with Grecia MAY.
[2021-07-25] MEDS: HYDROcodone/acetaminophen 7.5MG/325MG per 15ml UD CUP PEG PRN (20:46)
[2021-07-25] MEDS: donepezil 5mg tablet PEG SCH (20:47)
[2021-07-25] MEDS: gabapentin 300mg capsule PEG SCH (20:47)
[2021-07-25 22:00] VITALS: BP 92/50
[2021-07-26 02:00] VITALS: BP 111/62
[2021-07-26] MEDS: ipratropium/albuterol 3ml nebule NEB SCH ×4 (02:44→19:57)
--- NOTE | 2021-07-26 05:45 | NUR ---
Mr Solis has been assessed as indicated. He has been successfully treated for generalized pain x1 this shift. He did not have a BM this shift. However, due to having 3 large loose stool on the previous shift, his HS Colace was held. TF bolus and water flush is well tolerated. He has been using the urinal. However the pad on the bed is also wet. He continues to have a moist productive cough. He uses the Yankauer independently to suction secretions from his mouth. He has been note to be both pleasant and cooperative. And is resting quietly at this time
--- NOTE | 2021-07-26 06:15 | NUR ---
Problems reprioritized. Patient report given, questions answered & plan of care reviewed with RAHUL MAY .
--- NOTE | 2021-07-26 06:50 | NUR ---
Patient in room PCU 3018B. I have received report from YADIRA SHULTZ and had the opportunity to ask questions and assume patient care.
[2021-07-26 07:00] VITALS: BP 96/50
[2021-07-26] MEDS: K and/or MAG REPLACEMENT MC SCH ×2 (08:00→20:55)
[2021-07-26] MEDS: furosemide 40 MG/4 ML oral solution UD cup PEG SCH (09:09)
[2021-07-26] MEDS: docusate sodium 100mg/10ml UD cup PEG SCH ×2 (09:09→21:06)
[2021-07-26] MEDS: lansoprazole 15mg solutab PEG SCH (09:10)
[2021-07-26] MEDS: folic acid 1mg tablet PEG SCH (09:11)
[2021-07-26] MEDS: thiamine 100mg tablet PEG SCH (09:11)
[2021-07-26] MEDS: phenobarbital 30mg tablet PEG SCH ×2 (09:11→20:55)
[2021-07-26] MEDS: oxcarbazepine 150mg tablet PEG SCH ×3 (09:11→20:59)
--- NOTE | 2021-07-26 10:03 | NUR ---
Reassessment: Pt continues receiving bolus TF QID with no s/s of intolerance. Noted no labs other than blood sugar checks since 07/17. D/w RN recommendation to continue labs with physician approval so RD can monitor need to adjust nutrition recommendations and ensure continuance of appropriate nutrition as last serum Na was slightly low. LBM 07/25 receiving routine and PRN bowel care. Will continue to follow and make recommendations as appropriate. Recommendations: 1) Bolus TF via PEG QID at 0800, 1200, 1600, and 2000 using Jevity 1.2 w/ 410mL goal bolus. Initiate at 150ml bolus and advance by 65ml each bolus to goal as tolerated. To provide 1640mL total volume/day, 1968 kcal, 91g protein, and 1328mL water 2) Additional 40mL water flush before and after each bolus; monitor serum Na for adjustment needs- need routine labs 3) Prealbumin q Tuesday/ 4) Daily scaled weights 5) Routine bowel care; utilize PRN bowel care given no significant BM x 9 days HOME BOLUS TF RECS: 1) Bolus TF via PEG QID using Jevity 1.5 or equivalent with goal of 375 mL. Begin at goal rate as pt tolerating higher volume bolus feeds during admit 2) Additional 80 mL water flush before and after each bolus feed 3) Outpatient RD to titrate to goal rate and adjust recommendations as appropriate based on patient's estimated nutrient needs Addendum: 07/26/21 at [address] Amended: Links added.
[2021-07-26 10:35] LABS: BASOPHILS % (AUTO) 0.3 % (0-1); EOSINOPHILS # (AUTO) 0.1 X10'3 (0-0.9); EOSINOPHILS % (AUTO) 0.9 % (0-6); HEMATOCRIT 31.4 % (42.0-52.0); HEMOGLOBIN 10.5 g/dl (14.0-17.9); LYMPHOCYTES # (AUTO) 1.3 X10'3 (1.1-4.8); LYMPHOCYTES % (AUTO) 17.6 % (21-51); MEAN CORPUSCULAR HEMOGLOBIN 31.5 PG (27.0-31.0); MEAN CORPUSCULAR HGB CONC 33.5 g/dL (33.0-36.5); MEAN PLATELET VOLUME 7.5 FL (7.4-10.4); MONOCYTES # (AUTO) 0.5 X10'3 (0-0.9); MONOCYTES % (AUTO) 7.5 % (2-12); NEUTROPHILS # (AUTO) 5.4 X10'3 (1.8-7.7); NEUTROPHILS % (AUTO) 73.7 % (42-75); PLATELET COUNT 325 X10'3 (140-440); RED BLOOD COUNT 3.35 X10'6 (4.70-6.10); RED CELL DISTRIBUTION WIDTH 17.1 % (11.5-14.5); WHITE BLOOD COUNT 7.3 X10'3 (4.5-11.0)
[2021-07-26 10:43] LABS: ALANINE AMINOTRANSFERASE 18 U/L (12-78); ALBUMIN 1.6 G/DL (3.4-5.0); ALBUMIN/GLOBULIN RATIO 0.3 (1.1-1.5); ALKALINE PHOSPHATASE 109 IU/L (46-116); ANION GAP 5 (8-16); ASPARTATE AMINO TRANSFERASE 17 U/L (10-37); BILIRUBIN,TOTAL 0.2 MG/DL (0.1-1.0); BLOOD UREA NITROGEN 14 MG/DL (7-18); BUN/CREATININE RATIO 20.3 (5.4-32.0); CALCIUM 8.6 MG/DL (8.5-10.1); CHLORIDE 97 MMOL/L (99-107); CREATININE 0.69 MG/DL (0.60-1.10); GLUCOSE 115 MG/DL (70-104); POTASSIUM 3.6 MMOL/L (3.5-5.1); SODIUM 132 MMOL/L (135-145); TOTAL CARBON DIOXIDE 29.8 MMOL/L (24-32); TOTAL PROTEIN 7.3 G/DL (6.4-8.2); eGFR > 90 ML/MIN
[2021-07-26 11:00] VITALS: BP 90/52
[2021-07-26] MEDS: heparin, porcine 5000 units/ml vial SQ SCH ×2 (13:25→21:00)
[2021-07-26 15:00] VITALS: BP 103/54
[2021-07-26] MEDS: HYDROcodone/acetaminophen 7.5MG/325MG per 15ml UD CUP PEG PRN (15:25)
[2021-07-26 18:00] VITALS: BP 95/56
--- NOTE | 2021-07-26 18:16 | NUR ---
Received report from YADIRA Escoto and had the opportunity to ask questions and assume patient care.
--- NOTE | 2021-07-26 18:45 | NUR ---
Problems reprioritized. Patient report given, questions answered & plan of care reviewed with YADIRA DAVIS.
[2021-07-26] MEDS: donepezil 5mg tablet PEG SCH (20:58)
[2021-07-26] MEDS: guaiFENesin ER 600mg tablet PO SCH (20:59)
[2021-07-26] MEDS: gabapentin 300mg capsule PEG SCH (20:59)
[2021-07-26 22:00] VITALS: BP 98/51
[2021-07-27] MEDS: ipratropium/albuterol 3ml nebule NEB SCH ×4 (03:46→21:44)
[2021-07-27 06:00] VITALS: BP 100/59
--- NOTE | 2021-07-27 06:38 | NUR ---
Problems reprioritized. Patient report given, questions answered & plan of care reviewed with YADIRA Marquez.
[2021-07-27] MEDS: lansoprazole 15mg solutab PEG SCH (07:30)
[2021-07-27] MEDS: docusate sodium 100mg/10ml UD cup PEG SCH ×2 (08:48→22:30)
[2021-07-27] MEDS: K and/or MAG REPLACEMENT MC SCH ×2 (08:48→20:00)
[2021-07-27] MEDS: folic acid 1mg tablet PEG SCH (08:48)
[2021-07-27] MEDS: phenobarbital 30mg tablet PEG SCH ×2 (08:49→22:30)
[2021-07-27] MEDS: oxcarbazepine 150mg tablet PEG SCH ×3 (08:49→22:29)
[2021-07-27] MEDS: heparin, porcine 5000 units/ml vial SQ SCH ×2 (08:49→22:31)
[2021-07-27] MEDS: furosemide 40 MG/4 ML oral solution UD cup PEG SCH (08:49)
[2021-07-27] MEDS: thiamine 100mg tablet PEG SCH (08:49)
[2021-07-27] MEDS: guaiFENesin ER 600mg tablet PO SCH ×2 (08:49→22:30)
[2021-07-27 11:00] VITALS: BP 87/56
[2021-07-27 16:00] VITALS: BP 98/51
[2021-07-27 19:00] VITALS: BP 101/58
[2021-07-27 22:00] VITALS: BP 98/58
[2021-07-27] MEDS: gabapentin 300mg capsule PEG SCH (22:30)
[2021-07-27] MEDS: donepezil 5mg tablet PEG SCH (22:30)
[2021-07-28 02:00] VITALS: BP 92/54
[2021-07-28] MEDS: ipratropium/albuterol 3ml nebule NEB SCH ×4 (02:36→21:31)
[2021-07-28 06:00] VITALS: BP 91/53
--- NOTE | 2021-07-28 06:10 | NUR ---
Change of shift report given to Saida MYA Addendum: 07/28/21 at 0610 by Marce Shearer RN Amended: Links added.
--- NOTE | 2021-07-28 07:04 | NUR ---
Patient in room PCU 3018. I have received report from Marce MAY and had the opportunity to ask questions and assume patient care.
[2021-07-28] MEDS: oxcarbazepine 150mg tablet PEG SCH ×3 (08:40→21:03)
[2021-07-28] MEDS: docusate sodium 100mg/10ml UD cup PEG SCH ×2 (08:40→20:00)
[2021-07-28] MEDS: thiamine 100mg tablet PEG SCH (08:41)
[2021-07-28] MEDS: lansoprazole 15mg solutab PEG SCH (08:41)
[2021-07-28] MEDS: furosemide 40 MG/4 ML oral solution UD cup PEG SCH (08:41)
[2021-07-28] MEDS: guaiFENesin ER 600mg tablet PO SCH ×2 (08:41→21:03)
[2021-07-28] MEDS: folic acid 1mg tablet PEG SCH (08:41)
[2021-07-28] MEDS: phenobarbital 30mg tablet PEG SCH ×2 (08:41→21:03)
[2021-07-28] MEDS: heparin, porcine 5000 units/ml vial SQ SCH ×2 (08:42→21:03)
[2021-07-28] MEDS ORDERED: normal saline 1000ml 1,000 ML IV ONE (09:50)
[2021-07-28 15:00] VITALS: BP 104/58
--- NOTE | 2021-07-28 18:20 | NUR ---
Patient in room PCU 3018. I have received report from YADIRA Cintron and had the opportunity to ask questions and assume patient care.
--- NOTE | 2021-07-28 18:25 | NUR ---
Problems reprioritized. Patient report given, questions answered & plan of care reviewed with Shahrzad MAY, patient stable at transfer of care.
[2021-07-28 19:00] VITALS: BP 85/51
[2021-07-28] MEDS: K and/or MAG REPLACEMENT MC SCH (20:00)
[2021-07-28] MEDS: gabapentin 300mg capsule PEG SCH (21:03)
[2021-07-28] MEDS: donepezil 5mg tablet PEG SCH (21:03)
[2021-07-28 23:00] VITALS: BP 99/63
[2021-07-29] MEDS: ipratropium/albuterol 3ml nebule NEB SCH ×4 (02:51→22:04)
[2021-07-29 03:00] VITALS: BP 86/59
[2021-07-29 06:00] VITALS: BP 92/51
--- NOTE | 2021-07-29 06:18 | NUR ---
Problems reprioritized. Patient report given, questions answered & plan of care reviewed with YADIRA Cintron.
--- NOTE | 2021-07-29 07:19 | NUR ---
Patient in room PCU 3018. I have received report from Shahrzad MAY and had the opportunity to ask questions and assume patient care.
[2021-07-29] MEDS: K and/or MAG REPLACEMENT MC SCH ×2 (08:00→19:12)
[2021-07-29] MEDS: furosemide 40 MG/4 ML oral solution UD cup PEG SCH (08:00)
[2021-07-29] MEDS: oxcarbazepine 150mg tablet PEG SCH ×3 (10:31→21:41)
[2021-07-29] MEDS: phenobarbital 30mg tablet PEG SCH ×2 (10:32→19:57)
[2021-07-29] MEDS: folic acid 1mg tablet PEG SCH (10:32)
[2021-07-29] MEDS: guaiFENesin ER 600mg tablet PO SCH ×2 (10:32→19:57)
[2021-07-29] MEDS: lansoprazole 15mg solutab PEG SCH (10:32)
[2021-07-29] MEDS: heparin, porcine 5000 units/ml vial SQ SCH ×2 (10:33→19:57)
[2021-07-29] MEDS: docusate sodium 100mg/10ml UD cup PEG SCH ×2 (10:34→20:22)
[2021-07-29] MEDS: HYDROcodone/acetaminophen 7.5MG/325MG per 15ml UD CUP PEG PRN (10:36)
[2021-07-29] MEDS: thiamine 100mg tablet PEG SCH (10:53)
[2021-07-29 11:00] VITALS: BP_SYST 90; BP_SYST 93; BP_DIAS 55
[2021-07-29 15:00] VITALS: BP 93/55
[2021-07-29 18:00] VITALS: BP 104/56
--- NOTE | 2021-07-29 18:29 | NUR ---
Problems reprioritized. Patient report given, questions answered & plan of care reviewed with Vamsi RN, patient stable at transfer of care.
[2021-07-29] MEDS: temazepam 15mg capsule PEG PRN (19:57)
[2021-07-29] MEDS: donepezil 5mg tablet PEG SCH (21:40)
[2021-07-29] MEDS: gabapentin 300mg capsule PEG SCH (21:40)
[2021-07-29 22:00] VITALS: BP 112/71
[2021-07-30] MEDS: ipratropium/albuterol 3ml nebule NEB SCH ×4 (01:58→23:36)
[2021-07-30 02:00] VITALS: BP 112/58
[2021-07-30] MEDS: acetaminophen 325mg/10.15ml oral unit dose solution PEG PRN (02:58)
[2021-07-30 06:00] VITALS: BP 97/55
[2021-07-30] MEDS: phenobarbital 30mg tablet PEG SCH ×2 (07:51→20:46)
[2021-07-30] MEDS: lansoprazole 15mg solutab PEG SCH (07:51)
[2021-07-30] MEDS: furosemide 40 MG/4 ML oral solution UD cup PEG SCH (07:51)
[2021-07-30] MEDS: oxcarbazepine 150mg tablet PEG SCH ×3 (07:52→20:47)
[2021-07-30] MEDS: docusate sodium 100mg/10ml UD cup PEG SCH ×2 (07:52→20:47)
[2021-07-30] MEDS: thiamine 100mg tablet PEG SCH (07:52)
[2021-07-30] MEDS: folic acid 1mg tablet PEG SCH (07:52)
[2021-07-30] MEDS: guaiFENesin ER 600mg tablet PO SCH ×2 (07:52→20:46)
[2021-07-30] MEDS: heparin, porcine 5000 units/ml vial SQ SCH ×2 (07:53→20:46)
[2021-07-30] MEDS: K and/or MAG REPLACEMENT MC SCH ×2 (08:00→20:00)
[2021-07-30 11:00] VITALS: BP 96/60
--- NOTE | 2021-07-30 13:41 | NUR ---
Reassessment: Pt continues receiving bolus TF QID with no s/s of intolerance. No change to recommendations at this time. [facility] 07/25 receiving routine bowel care. Will continue to follow and make recommendations as appropriate. Recommendations: 1) Bolus TF via PEG QID at 0800, 1200, 1600, and 2000 using Jevity 1.2 w/ 410mL goal bolus. Initiate at 150ml bolus and advance by 65ml each bolus to goal as tolerated. To provide 1640mL total volume/day, 1968 kcal, 91g protein, and 1328mL water 2) Additional 40mL water flush before and after each bolus; monitor serum Na for adjustment needs- need routine labs 3) Prealbumin q Tuesday/ 4) Daily scaled weights 5) Routine bowel care; utilize PRN bowel care given no significant BM x 9 days HOME BOLUS TF RECS: 1) Bolus TF via PEG QID using Jevity 1.5 or equivalent with goal of 375 mL. Begin at goal rate as pt tolerating higher volume bolus feeds during admit 2) Additional 80 mL water flush before and after each bolus feed 3) Outpatient RD to titrate to goal rate and adjust recommendations as appropriate based on patient's estimated nutrient needs Addendum: 07/30/21 at [address] Amended: Links added.
[2021-07-30 14:48] LABS: BASOPHILS % (AUTO) 0.4 % (0-1); EOSINOPHILS # (AUTO) 0.1 X10'3 (0-0.9); EOSINOPHILS % (AUTO) 1.3 % (0-6); HEMATOCRIT 34.6 % (42.0-52.0); HEMOGLOBIN 11.4 g/dl (14.0-17.9); LYMPHOCYTES # (AUTO) 1.4 X10'3 (1.1-4.8); LYMPHOCYTES % (AUTO) 16.9 % (21-51); MEAN CORPUSCULAR HEMOGLOBIN 31.2 PG (27.0-31.0); MEAN CORPUSCULAR HGB CONC 32.9 g/dL (33.0-36.5); MEAN CORPUSCULAR VOLUME 94.8 FL (78-98); MONOCYTES # (AUTO) 0.8 X10'3 (0-0.9); MONOCYTES % (AUTO) 9.2 % (2-12); NEUTROPHILS % (AUTO) 72.2 % (42-75); PLATELET COUNT 475 X10'3 (140-440); RED BLOOD COUNT 3.65 X10'6 (4.70-6.10); RED CELL DISTRIBUTION WIDTH 16.6 % (11.5-14.5); WHITE BLOOD COUNT 8.3 X10'3 (4.5-11.0)
[2021-07-30 15:00] VITALS: BP 93/56
[2021-07-30] MEDS: cefepime 2g/NS 100ml ADVANTAGE 100 ML IV SCH ×2 (15:35→20:44)
[2021-07-30 18:00] VITALS: BP 99/55
--- NOTE | 2021-07-30 18:57 | NUR ---
Problems reprioritized. Patient report given, questions answered & plan of care reviewed with YADIRA Begum.
[2021-07-30] MEDS: donepezil 5mg tablet PEG SCH (20:46)
[2021-07-30] MEDS: gabapentin 300mg capsule PEG SCH (20:46)
[2021-07-30 22:00] VITALS: BP 102/57
--- NOTE | 2021-07-30 22:00 | NUR ---
PATIENT HAD TEMP OF 102.8, GAVE TYLENOL, RETOOK TEMP AT 0000 IT WAS 98.6
[2021-07-31] MEDS: ipratropium/albuterol 3ml nebule NEB SCH ×3 (01:49→20:46)
[2021-07-31 02:00] VITALS: BP 102/69
[2021-07-31 05:50] LABS: BASOPHILS # (AUTO) 0.1 X10'3 (0-0.2); BASOPHILS % (AUTO) 0.7 % (0-1); EOSINOPHILS # (AUTO) 0.1 X10'3 (0-0.9); EOSINOPHILS % (AUTO) 0.9 % (0-6); HEMATOCRIT 27.8 % (42.0-52.0); HEMOGLOBIN 9.3 g/dl (14.0-17.9); LYMPHOCYTES # (AUTO) 1.7 X10'3 (1.1-4.8); MEAN CORPUSCULAR HEMOGLOBIN 31.1 PG (27.0-31.0); MEAN CORPUSCULAR HGB CONC 33.5 g/dL (33.0-36.5); MEAN CORPUSCULAR VOLUME 92.8 FL (78-98); MEAN PLATELET VOLUME 7.1 FL (7.4-10.4); MONOCYTES # (AUTO) 0.9 X10'3 (0-0.9); NEUTROPHILS # (AUTO) 8.5 X10'3 (1.8-7.7); NEUTROPHILS % (AUTO) 75.4 % (42-75); PLATELET COUNT 459 X10'3 (140-440); RED CELL DISTRIBUTION WIDTH 16.6 % (11.5-14.5); WHITE BLOOD COUNT 11.3 X10'3 (4.5-11.0)
[2021-07-31 06:00] VITALS: BP 105/61
[2021-07-31 06:15] LABS: ALBUMIN 1.6 G/DL (3.4-5.0); ANION GAP 9 (8-16); BLOOD UREA NITROGEN 14 MG/DL (7-18); BUN/CREATININE RATIO 26.9 (5.4-32.0); CALCIUM 8.2 MG/DL (8.5-10.1); CHLORIDE 100 MMOL/L (99-107); CREATININE 0.52 MG/DL (0.60-1.10); GLUCOSE 107 MG/DL (70-104); POTASSIUM 4.4 MMOL/L (3.5-5.1); SODIUM 137 MMOL/L (135-145); TOTAL CARBON DIOXIDE 28.2 MMOL/L (24-32); eGFR > 90 ML/MIN
--- NOTE | 2021-07-31 06:23 | NUR ---
Problems reprioritized. Patient report given, questions answered & plan of care reviewed witH DAVID MAY.
[2021-07-31] MEDS: docusate sodium 100mg/10ml UD cup PEG SCH ×2 (08:00→20:39)
[2021-07-31] MEDS: K and/or MAG REPLACEMENT MC SCH ×2 (08:00→20:00)
[2021-07-31] MEDS: cefepime 2g/NS 100ml ADVANTAGE 100 ML IV SCH (09:33)
[2021-07-31] MEDS: guaiFENesin ER 600mg tablet PO SCH ×2 (09:34→20:38)
[2021-07-31] MEDS: folic acid 1mg tablet PEG SCH (09:34)
[2021-07-31] MEDS: oxcarbazepine 150mg tablet PEG SCH ×3 (09:34→20:36)
[2021-07-31] MEDS: thiamine 100mg tablet PEG SCH (09:34)
[2021-07-31] MEDS: phenobarbital 30mg tablet PEG SCH ×2 (09:34→20:38)
[2021-07-31] MEDS: furosemide 40 MG/4 ML oral solution UD cup PEG SCH (09:34)
[2021-07-31] MEDS: lansoprazole 15mg solutab PEG SCH (09:35)
[2021-07-31] MEDS: heparin, porcine 5000 units/ml vial SQ SCH ×2 (09:36→20:41)
[2021-07-31] MEDS: acetaminophen 325mg/10.15ml oral unit dose solution PEG PRN (10:17)
[2021-07-31 11:00] VITALS: BP 109/59
[2021-07-31 15:00] VITALS: BP 92/60
[2021-07-31] MEDS: HYDROcodone/acetaminophen 7.5MG/325MG per 15ml UD CUP PEG PRN (16:03)
--- NOTE | 2021-07-31 17:47 | NUR ---
Pt has had family in the room today. He is in good spirits. He has a higher GRV x 1 but that was due to feedings too close d/t other patients on the floor. Pt got tylenol x 1 for pain this am and norco x1 for higher pain this afternoon. Both were effective.
--- NOTE | 2021-07-31 18:48 | NUR ---
Problems reprioritized. Patient report given, questions answered & plan of care reviewed with YADIRA Ortiz.
[2021-07-31] MEDS: donepezil 5mg tablet PEG SCH (20:37)
[2021-07-31] MEDS: gabapentin 300mg capsule PEG SCH (20:37)
[2021-07-31] MEDS: lactobacillus rhamnosus 10,000 MMU CELLS/CAPSULE PO SCH (20:39)
[2021-08-01] MEDS: cefepime 2g/NS 100ml ADVANTAGE 100 ML IV SCH ×3 (00:46→19:39)
--- NOTE | 2021-08-01 02:03 | NUR ---
patient AOX 3. He does make his needs known, medication crushed in G-Tube Bolus given tolerated well. IV ABXT given site patent no signs of infiltrates or swelling. Patient has on a condom cath with light am er urine He is on 2L NC . Patient is sinus tach on monitor. No c/o pain oe discomfort observed.
[2021-08-01] MEDS: ipratropium/albuterol 3ml nebule NEB SCH ×4 (03:05→20:36)
[2021-08-01 06:00] VITALS: BP 99/61
[2021-08-01] MEDS: K and/or MAG REPLACEMENT MC SCH ×2 (08:00→20:00)
[2021-08-01] MEDS: phenobarbital 30mg tablet PEG SCH ×2 (09:37→19:39)
[2021-08-01] MEDS: heparin, porcine 5000 units/ml vial SQ SCH ×2 (09:37→19:39)
[2021-08-01] MEDS: docusate sodium 100mg/10ml UD cup PEG SCH ×2 (09:38→19:38)
[2021-08-01] MEDS: lansoprazole 15mg solutab PEG SCH (09:38)
[2021-08-01] MEDS: furosemide 40 MG/4 ML oral solution UD cup PEG SCH (09:38)
[2021-08-01] MEDS: folic acid 1mg tablet PEG SCH (09:39)
[2021-08-01] MEDS: oxcarbazepine 150mg tablet PEG SCH ×3 (09:39→19:44)
[2021-08-01] MEDS: thiamine 100mg tablet PEG SCH (09:40)
[2021-08-01] MEDS: lactobacillus rhamnosus 10,000 MMU CELLS/CAPSULE PO SCH ×2 (09:40→19:39)
[2021-08-01] MEDS: guaiFENesin ER 600mg tablet PO SCH ×2 (09:40→20:00)
[2021-08-01 11:00] VITALS: BP 96/50
[2021-08-01] MEDS: HYDROcodone/acetaminophen 7.5MG/325MG per 15ml UD CUP PEG PRN ×2 (11:01→19:43)
[2021-08-01 15:00] VITALS: BP 92/56
[2021-08-01 18:00] VITALS: BP 124/66
[2021-08-01] MEDS: gabapentin 300mg capsule PEG SCH (19:43)
[2021-08-01] MEDS: donepezil 5mg tablet PEG SCH (19:44)
[2021-08-01 22:00] VITALS: BP 122/95
[2021-08-02] MEDS: temazepam 15mg capsule PEG PRN ×2 (00:54→19:56)
[2021-08-02 02:00] VITALS: BP 114/68
[2021-08-02] MEDS: ipratropium/albuterol 3ml nebule NEB SCH ×4 (04:38→20:37)
[2021-08-02 07:21] VITALS: BP 110/65
[2021-08-02] MEDS: K and/or MAG REPLACEMENT MC SCH ×2 (08:00→20:00)
[2021-08-02] MEDS: thiamine 100mg tablet PEG SCH (09:02)
[2021-08-02] MEDS: phenobarbital 30mg tablet PEG SCH ×2 (09:02→19:52)
[2021-08-02] MEDS: oxcarbazepine 150mg tablet PEG SCH ×3 (09:02→19:55)
[2021-08-02] MEDS: furosemide 40 MG/4 ML oral solution UD cup PEG SCH (09:02)
[2021-08-02] MEDS: docusate sodium 100mg/10ml UD cup PEG SCH ×2 (09:02→19:56)
[2021-08-02] MEDS: lactobacillus rhamnosus 10,000 MMU CELLS/CAPSULE PO SCH ×2 (09:03→19:51)
[2021-08-02] MEDS: folic acid 1mg tablet PEG SCH (09:03)
[2021-08-02] MEDS: guaiFENesin ER 600mg tablet PO SCH ×2 (09:03→20:00)
[2021-08-02] MEDS: heparin, porcine 5000 units/ml vial SQ SCH ×2 (09:08→19:56)
[2021-08-02] MEDS: cefepime 2g/NS 100ml ADVANTAGE 100 ML IV SCH ×2 (09:09→19:56)
[2021-08-02] MEDS: lansoprazole 15mg solutab PEG SCH (09:33)
--- NOTE | 2021-08-02 10:10 | NUR ---
PAGER ID: [phone] MESSAGE: COLIN ON [email or web address], CAN I MOVE DAVID Berman TO SURGICAL WITH NO TELE MONITOR?? THX
[2021-08-02 11:00] VITALS: BP 115/73
[2021-08-02] MEDS: acetaminophen 325mg/10.15ml oral unit dose solution PEG PRN (11:27)
--- NOTE | 2021-08-02 13:25 | NUR ---
Nurse ronnie Tobias reported patient lethargic and blood pressure decreased to 80/56. Blood pressure rechecked and it decreased to 70/48. MD and resource nurse notified. MD paged and ordered 500 ML bolus of NS. Patient monitored and suctioned. Patient blood pressure increased to 127/69.Patient responsive and nurse will continue to monitor.
--- NOTE | 2021-08-02 13:30 | NUR ---
Patient received 500ml bolus of NS for low BP . Recheck patient had systolic in the 120s. will continue to monitor
[2021-08-02 15:00] VITALS: BP 127/69
[2021-08-02] MEDS: HYDROcodone/acetaminophen 7.5MG/325MG per 15ml UD CUP PEG PRN (16:37)
[2021-08-02 18:00] VITALS: BP 124/60
--- NOTE | 2021-08-02 18:42 | NUR ---
Problems reprioritized. Patient report given, questions answered & plan of care reviewed with Lissy.
[2021-08-02] MEDS: gabapentin 300mg capsule PEG SCH (19:51)
[2021-08-02] MEDS: donepezil 5mg tablet PEG SCH (19:56)
[2021-08-03] VITALS (8 sets, daily range): BP systolic 90–126; BP diastolic 48–70
[2021-08-03] MEDS: ipratropium/albuterol 3ml nebule NEB SCH ×4 (02:32→21:35)
[2021-08-03] MEDS: acetaminophen 325mg/10.15ml oral unit dose solution PEG PRN ×3 (04:19→20:12)
--- NOTE | 2021-08-03 04:19 | NUR ---
Patient temp is 102.0, This nurse administered tylenol 650mg via peg-tube, and Dr Solorio was notified. gave order to order blood cultures. will continue to monitor patient temperature.
[2021-08-03] MEDS ORDERED: furosemide 40mg/4ml inj IV STA (05:59)
--- NOTE | 2021-08-03 06:05 | NUR ---
Patient's saturation dropped to 86% on 4 liters of oxygen, this nurse increased his oxygen level to 6 liters and respiratory was notified. RT came and placed patient on [address] Espinoza was paged and gave orders for a chest x-ray, ABG and 40mg IV lasix one time dose stat. Lasix was given, patient's saturation is improving 94%, patient is upright in bed and resting, report given to day shift nurse.
[2021-08-03] MEDS: K and/or MAG REPLACEMENT MC SCH ×2 (08:00→20:00)
[2021-08-03] MEDS: docusate sodium 100mg/10ml UD cup PEG SCH ×2 (08:31→20:12)
[2021-08-03] MEDS: lansoprazole 15mg solutab PEG SCH (08:31)
[2021-08-03] MEDS: oxcarbazepine 150mg tablet PEG SCH ×3 (08:31→20:12)
[2021-08-03] MEDS: guaiFENesin ER 600mg tablet PO SCH ×2 (08:31→20:00)
[2021-08-03] MEDS: heparin, porcine 5000 units/ml vial SQ SCH ×2 (08:31→20:13)
[2021-08-03] MEDS: lactobacillus rhamnosus 10,000 MMU CELLS/CAPSULE PO SCH ×2 (08:31→20:12)
[2021-08-03] MEDS: folic acid 1mg tablet PEG SCH (08:32)
[2021-08-03] MEDS: phenobarbital 30mg tablet PEG SCH ×2 (08:32→20:13)
[2021-08-03] MEDS: cefepime 2g/NS 100ml ADVANTAGE 100 ML IV SCH ×2 (08:35→20:19)
[2021-08-03] MEDS: furosemide 40 MG/4 ML oral solution UD cup PEG SCH (13:19)
[2021-08-03] MEDS: thiamine 100mg tablet PEG SCH (13:19)
--- NOTE | 2021-08-03 18:27 | NUR ---
Problems reprioritized. Patient report given, questions answered & plan of care reviewed with Lissy. Patient is stable and responsive.
[2021-08-03] MEDS: gabapentin 300mg capsule PEG SCH (20:12)
[2021-08-03] MEDS: temazepam 15mg capsule PEG PRN (20:13)
[2021-08-03] MEDS: donepezil 5mg tablet PEG SCH (20:13)
[2021-08-04 02:00] VITALS: BP 90/58
[2021-08-04] MEDS: ipratropium/albuterol 3ml nebule NEB SCH ×4 (02:17→20:38)
[2021-08-04 06:00] VITALS: BP 93/56
--- NOTE | 2021-08-04 06:50 | NUR ---
Patient in room PCU 3018. I have received report from Lissy MAY and had the opportunity to ask questions and assume patient care.
[2021-08-04] MEDS: furosemide 40 MG/4 ML oral solution UD cup PEG SCH (08:00)
[2021-08-04] MEDS: K and/or MAG REPLACEMENT MC SCH ×2 (08:00→20:00)
--- NOTE | 2021-08-04 09:40 | NUR ---
Reassessment: Pt continues receiving bolus TF QID with no s/s of intolerance. Due to current unavailability of Jevity 1.2, recommend changing TF to Vital AF until availability of Jevity 1.2 resolved, updated recs below. [facility] 07/30 receiving routine bowel care. Will continue to follow and make recommendations as appropriate. Recommendations: 1) Bolus TF via PEG QID at 0800, 1200, 1600, and 2000 using Vital AF w/ 400mL goal bolus. To provide 1600mL total volume/day, 1920 kcal, 120g protein, and 1296mL water 2) Additional 50mL water flush before and after each bolus; monitor serum Na for adjustment needs- need routine labs 3) Prealbumin q Tuesday/ 4) Daily scaled weights 5) Routine bowel correction BOLUS TF RECS: 1) Bolus TF via PEG QID using Jevity 1.5 or equivalent with goal of 375 mL. Begin at goal rate as pt tolerating higher volume bolus feeds during admit 2) Additional 80 mL water flush before and after each bolus feed 3) Outpatient RD to titrate to goal rate and adjust recommendations as appropriate based on patient's estimated nutrient needs Addendum: 08/04/21 at [address] Amended: Links added. Addendum: 08/04/21 at [address] I have reviewed assessment by international account representative
[2021-08-04] MEDS: cefepime 2g/NS 100ml ADVANTAGE 100 ML IV SCH ×2 (10:30→21:23)
[2021-08-04] MEDS: heparin, porcine 5000 units/ml vial SQ SCH ×2 (10:32→21:22)
[2021-08-04] MEDS: phenobarbital 30mg tablet PEG SCH ×2 (10:33→21:23)
[2021-08-04] MEDS: docusate sodium 100mg/10ml UD cup PEG SCH ×2 (10:33→21:21)
[2021-08-04] MEDS: gabapentin 300mg capsule PEG SCH (10:33)
[2021-08-04] MEDS: oxcarbazepine 150mg tablet PEG SCH ×3 (10:34→21:22)
[2021-08-04] MEDS: guaiFENesin ER 600mg tablet PO SCH ×2 (10:34→21:23)
[2021-08-04] MEDS: lansoprazole 15mg solutab PEG SCH (10:34)
[2021-08-04] MEDS: lactobacillus rhamnosus 10,000 MMU CELLS/CAPSULE PO SCH ×2 (10:34→20:00)
[2021-08-04] MEDS: folic acid 1mg tablet PEG SCH (10:34)
[2021-08-04] MEDS: thiamine 100mg tablet PEG SCH (10:35)
[2021-08-04 11:00] VITALS: BP 91/56
[2021-08-04 15:00] VITALS: BP 87/52
[2021-08-04 18:00] VITALS: BP 102/76
--- NOTE | 2021-08-04 18:39 | NUR ---
Problems reprioritized. Patient report given, questions answered & plan of care reviewed with Hui MAY, patient stable at transfer of care.
[2021-08-04] MEDS: donepezil 5mg tablet PEG SCH (21:23)
[2021-08-04 22:00] VITALS: BP 95/55
[2021-08-04] MEDS: HYDROcodone/acetaminophen 7.5MG/325MG per 15ml UD CUP PEG PRN (22:43)
[2021-08-05 02:00] VITALS: BP 95/62
[2021-08-05] MEDS: ipratropium/albuterol 3ml nebule NEB SCH ×4 (02:35→20:14)
--- NOTE | 2021-08-05 05:00 | NUR ---
patient resting in bed comfortable. alert and oriented X4 able to make needs known. Able to suction self. vitals stable. pt tolerating feedings well. call liu in reach. will continue to monitor.
[2021-08-05 06:00] VITALS: BP 92/59
--- NOTE | 2021-08-05 07:12 | NUR ---
Patient in room PCU 3018. I have received report from Hui MAY and had the opportunity to ask questions and assume patient care.
[2021-08-05] MEDS: K and/or MAG REPLACEMENT MC SCH ×2 (08:00→20:00)
[2021-08-05] MEDS: furosemide 40 MG/4 ML oral solution UD cup PEG SCH (08:00)
[2021-08-05] MEDS: guaiFENesin ER 600mg tablet PO SCH ×2 (08:50→22:58)
[2021-08-05] MEDS: phenobarbital 30mg tablet PEG SCH ×2 (08:55→22:58)
[2021-08-05] MEDS: lactobacillus rhamnosus 10,000 MMU CELLS/CAPSULE PO SCH ×2 (08:56→22:55)
[2021-08-05] MEDS: lansoprazole 15mg solutab PEG SCH (08:56)
[2021-08-05] MEDS: oxcarbazepine 150mg tablet PEG SCH ×3 (08:56→22:58)
[2021-08-05] MEDS: thiamine 100mg tablet PEG SCH (08:57)
[2021-08-05] MEDS: folic acid 1mg tablet PEG SCH (08:57)
[2021-08-05] MEDS: docusate sodium 100mg/10ml UD cup PEG SCH ×2 (08:58→22:55)
[2021-08-05] MEDS: heparin, porcine 5000 units/ml vial SQ SCH ×2 (09:00→23:00)
[2021-08-05] MEDS: cefepime 2g/NS 100ml ADVANTAGE 100 ML IV SCH ×2 (09:00→23:54)
[2021-08-05 10:30] LABS: BASOPHILS % (AUTO) 0.5 % (0-1); EOSINOPHILS # (AUTO) 0.1 X10'3 (0-0.9); EOSINOPHILS % (AUTO) 1.1 % (0-6); HEMATOCRIT 27.1 % (42.0-52.0); HEMOGLOBIN 9.2 g/dl (14.0-17.9); LYMPHOCYTES # (AUTO) 1.9 X10'3 (1.1-4.8); LYMPHOCYTES % (AUTO) 18.3 % (21-51); MEAN CORPUSCULAR HEMOGLOBIN 31.4 PG (27.0-31.0); MEAN CORPUSCULAR HGB CONC 34.1 g/dL (33.0-36.5); MEAN CORPUSCULAR VOLUME 92.3 FL (78-98); MEAN PLATELET VOLUME 7.4 FL (7.4-10.4); MONOCYTES # (AUTO) 0.5 X10'3 (0-0.9); MONOCYTES % (AUTO) 5.1 % (2-12); NEUTROPHILS # (AUTO) 7.9 X10'3 (1.8-7.7); PLATELET COUNT 500 X10'3 (140-440); RED BLOOD COUNT 2.94 X10'6 (4.70-6.10); RED CELL DISTRIBUTION WIDTH 17.1 % (11.5-14.5); WHITE BLOOD COUNT 10.5 X10'3 (4.5-11.0)
[2021-08-05 10:43] LABS: ALANINE AMINOTRANSFERASE 32 U/L (12-78); ALBUMIN 1.5 G/DL (3.4-5.0); ALBUMIN/GLOBULIN RATIO 0.3 (1.1-1.5); ALKALINE PHOSPHATASE 89 IU/L (46-116); ANION GAP 4 (8-16); ASPARTATE AMINO TRANSFERASE 24 U/L (10-37); BILIRUBIN,TOTAL 0.1 MG/DL (0.1-1.0); BLOOD UREA NITROGEN 14 MG/DL (7-18); CHLORIDE 101 MMOL/L (99-107); GLUCOSE 96 MG/DL (70-104); POTASSIUM 4.5 MMOL/L (3.5-5.1); SODIUM 137 MMOL/L (135-145); TOTAL CARBON DIOXIDE 32.4 MMOL/L (24-32); TOTAL PROTEIN 6.6 G/DL (6.4-8.2); eGFR > 90 ML/MIN
[2021-08-05 11:00] VITALS: BP 93/66
--- NOTE | 2021-08-05 12:23 | NUR ---
TC from RN stating pt dry heaving and vomiting after bolus feeding, MD would like to switch back to continuous. See recs below using Vital AF as Jevity 1.2 currently unavailable Recommendations: 1) Continuous TF per MD using Vital AF at 66ml/hr goal to provide 1584ml volume, 1900kcals, 118g protein, 1283ml free water 2) When Jevity 1.2 available, Continuous Jevity 1.2 via PEG with goal rate of 75 mL/hr to provide 1800 mL total volume/day, 2160 kcal, 100 g protein, and 1453 mL water 2) Additional water flush 150ml Q4h; monitor serum Na 3) Prealbumin q Tuesday/ 4) Daily scaled weights 5) Routine bowel [facility] BOLUS TF RECS: 1) Bolus TF via PEG QID using Jevity 1.5 or equivalent with goal of 375 mL. Begin at goal rate as pt tolerating higher volume bolus feeds during admit 2) Additional 80 mL water flush before and after each bolus feed 3) Outpatient RD to titrate to goal rate and adjust recommendations as appropriate based on patient's estimated nutrient needs Addendum: 08/05/21 at [address] Amended: Links added.
[2021-08-05 15:00] VITALS: BP 96/65
[2021-08-05 18:00] VITALS: BP 103/62
--- NOTE | 2021-08-05 18:24 | NUR ---
Problems reprioritized. Patient report given, questions answered & plan of care reviewed with Barbi MAY, patient stable at transfer of care.
[2021-08-05 22:00] VITALS: BP 100/62
[2021-08-05] MEDS: gabapentin 300mg capsule PEG SCH (22:58)
[2021-08-05] MEDS: donepezil 5mg tablet PEG SCH (22:59)
[2021-08-06 02:00] VITALS: BP 106/66
[2021-08-06] MEDS: ipratropium/albuterol 3ml nebule NEB SCH ×4 (03:07→21:12)
[2021-08-06 04:48] LABS: BASOPHILS % (AUTO) 0.4 % (0-1); EOSINOPHILS # (AUTO) 0.1 X10'3 (0-0.9); EOSINOPHILS % (AUTO) 0.8 % (0-6); HEMATOCRIT 28.6 % (42.0-52.0); HEMOGLOBIN 9.4 g/dl (14.0-17.9); LYMPHOCYTES # (AUTO) 1.9 X10'3 (1.1-4.8); LYMPHOCYTES % (AUTO) 19.2 % (21-51); MEAN CORPUSCULAR HEMOGLOBIN 30.3 PG (27.0-31.0); MEAN CORPUSCULAR HGB CONC 32.9 g/dL (33.0-36.5); MEAN CORPUSCULAR VOLUME 92.1 FL (78-98); MEAN PLATELET VOLUME 7.1 FL (7.4-10.4); MONOCYTES # (AUTO) 0.7 X10'3 (0-0.9); MONOCYTES % (AUTO) 6.5 % (2-12); NEUTROPHILS # (AUTO) 7.3 X10'3 (1.8-7.7); NEUTROPHILS % (AUTO) 73.1 % (42-75); PLATELET COUNT 538 X10'3 (140-440)
[2021-08-06 05:03] LABS: ALANINE AMINOTRANSFERASE 49 U/L (12-78); ALBUMIN 1.5 G/DL (3.4-5.0); ALBUMIN/GLOBULIN RATIO 0.3 (1.1-1.5); ALKALINE PHOSPHATASE 94 IU/L (46-116); ANION GAP 6 (8-16); ASPARTATE AMINO TRANSFERASE 27 U/L (10-37); BLOOD UREA NITROGEN 15 MG/DL (7-18); BUN/CREATININE RATIO 34.9 (5.4-32.0); CALCIUM 8.1 MG/DL (8.5-10.1); CHLORIDE 100 MMOL/L (99-107); CREATININE 0.43 MG/DL (0.60-1.10); GLUCOSE 125 MG/DL (70-104); POTASSIUM 4.2 MMOL/L (3.5-5.1); SODIUM 137 MMOL/L (135-145); TOTAL PROTEIN 6.6 G/DL (6.4-8.2); eGFR > 90 ML/MIN
[2021-08-06 06:00] VITALS: BP_SYST 104; BP_SYST 110; BP_DIAS 67; BP_DIAS 81
--- NOTE | 2021-08-06 06:29 | NUR ---
Patient in room PCU 3018. I have received report from Rosario MAY and had the opportunity to ask questions and assume patient care.
[2021-08-06] MEDS: K and/or MAG REPLACEMENT MC SCH ×2 (08:00→20:00)
[2021-08-06] MEDS: folic acid 1mg tablet PEG SCH (10:21)
[2021-08-06] MEDS: cefepime 2g/NS 100ml ADVANTAGE 100 ML IV SCH (10:21)
[2021-08-06] MEDS: guaiFENesin ER 600mg tablet PO SCH ×2 (10:21→21:12)
[2021-08-06] MEDS: phenobarbital 30mg tablet PEG SCH ×2 (10:26→21:29)
[2021-08-06] MEDS: furosemide 40 MG/4 ML oral solution UD cup PEG SCH (10:26)
[2021-08-06] MEDS: docusate sodium 100mg/10ml UD cup PEG SCH ×2 (10:26→21:14)
[2021-08-06] MEDS: oxcarbazepine 150mg tablet PEG SCH ×3 (10:26→21:11)
[2021-08-06] MEDS: lactobacillus rhamnosus 10,000 MMU CELLS/CAPSULE PO SCH ×2 (10:27→21:13)
[2021-08-06] MEDS: heparin, porcine 5000 units/ml vial SQ SCH ×2 (10:28→21:17)
[2021-08-06 11:00] VITALS: BP 98/62
[2021-08-06] MEDS: lansoprazole 15mg solutab PEG SCH (11:00)
[2021-08-06] MEDS: thiamine 100mg tablet PEG SCH (11:01)
[2021-08-06 15:00] VITALS: BP 92/64
[2021-08-06 18:00] VITALS: BP 125/69
[2021-08-06] MEDS: gabapentin 300mg capsule PEG SCH (21:12)
[2021-08-06] MEDS: donepezil 5mg tablet PEG SCH (21:12)
[2021-08-06 22:00] VITALS: BP 125/69
[2021-08-07 02:00] VITALS: BP 101/66
[2021-08-07] MEDS: ipratropium/albuterol 3ml nebule NEB SCH ×4 (02:41→20:36)
[2021-08-07 04:00] VITALS: BP 121/68
[2021-08-07 06:00] VITALS: BP 113/61
[2021-08-07 06:08] LABS: BASOPHILS % (AUTO) 0.5 % (0-1); EOSINOPHILS # (AUTO) 0.1 X10'3 (0-0.9); EOSINOPHILS % (AUTO) 0.7 % (0-6); HEMATOCRIT 28.6 % (42.0-52.0); HEMOGLOBIN 9.7 g/dl (14.0-17.9); LYMPHOCYTES # (AUTO) 1.5 X10'3 (1.1-4.8); LYMPHOCYTES % (AUTO) 15.5 % (21-51); MEAN CORPUSCULAR HGB CONC 33.9 g/dL (33.0-36.5); MEAN CORPUSCULAR VOLUME 91.4 FL (78-98); MEAN PLATELET VOLUME 6.8 FL (7.4-10.4); MONOCYTES # (AUTO) 0.7 X10'3 (0-0.9); NEUTROPHILS # (AUTO) 7.6 X10'3 (1.8-7.7); NEUTROPHILS % (AUTO) 76.3 % (42-75); PLATELET COUNT 559 X10'3 (140-440); RED BLOOD COUNT 3.13 X10'6 (4.70-6.10); WHITE BLOOD COUNT 9.9 X10'3 (4.5-11.0)
--- NOTE | 2021-08-07 06:12 | NUR ---
Patient in room PCU 3018. I have received report from Erin and had the opportunity to ask questions and assume patient care.
[2021-08-07 06:43] LABS: ALANINE AMINOTRANSFERASE 38 U/L (12-78); ALBUMIN 1.6 G/DL (3.4-5.0); ALBUMIN/GLOBULIN RATIO 0.3 (1.1-1.5); ALKALINE PHOSPHATASE 100 IU/L (46-116); ANION GAP 8 (8-16); ASPARTATE AMINO TRANSFERASE 25 U/L (10-37); BILIRUBIN,TOTAL 0.1 MG/DL (0.1-1.0); BLOOD UREA NITROGEN 16 MG/DL (7-18); BUN/CREATININE RATIO 33.3 (5.4-32.0); CALCIUM 8.3 MG/DL (8.5-10.1); CHLORIDE 102 MMOL/L (99-107); CREATININE 0.48 MG/DL (0.60-1.10); GLUCOSE 134 MG/DL (70-104); POTASSIUM 3.8 MMOL/L (3.5-5.1); SODIUM 141 MMOL/L (135-145); TOTAL CARBON DIOXIDE 30.8 MMOL/L (24-32); TOTAL PROTEIN 6.9 G/DL (6.4-8.2); eGFR > 90 ML/MIN
[2021-08-07] MEDS: K and/or MAG REPLACEMENT MC SCH ×2 (08:00→20:00)
[2021-08-07] MEDS: docusate sodium 100mg/10ml UD cup PEG SCH ×2 (08:07→21:50)
[2021-08-07] MEDS: thiamine 100mg tablet PEG SCH (08:08)
[2021-08-07] MEDS: lansoprazole 15mg solutab PEG SCH (08:08)
[2021-08-07] MEDS: oxcarbazepine 150mg tablet PEG SCH ×3 (08:08→21:52)
[2021-08-07] MEDS: lactobacillus rhamnosus 10,000 MMU CELLS/CAPSULE PO SCH ×2 (08:08→21:52)
[2021-08-07] MEDS: furosemide 40 MG/4 ML oral solution UD cup PEG SCH (08:08)
[2021-08-07] MEDS: phenobarbital 30mg tablet PEG SCH ×2 (08:09→21:51)
[2021-08-07] MEDS: guaiFENesin ER 600mg tablet PO SCH ×2 (08:09→21:52)
[2021-08-07] MEDS: folic acid 1mg tablet PEG SCH (08:09)
[2021-08-07] MEDS: heparin, porcine 5000 units/ml vial SQ SCH ×2 (08:10→21:53)
[2021-08-07 11:00] VITALS: BP 121/73
[2021-08-07 18:00] VITALS: BP 129/72
[2021-08-07] MEDS: gabapentin 300mg capsule PEG SCH (21:52)
[2021-08-07] MEDS: donepezil 5mg tablet PEG SCH (21:52)
[2021-08-07 22:00] VITALS: BP 88/57
[2021-08-08 02:00] VITALS: BP 84/57
[2021-08-08] MEDS: ipratropium/albuterol 3ml nebule NEB SCH ×4 (02:43→20:32)
[2021-08-08 07:00] VITALS: BP 98/66
[2021-08-08] MEDS: oxcarbazepine 150mg tablet PEG SCH ×3 (07:54→21:53)
[2021-08-08] MEDS: lansoprazole 15mg solutab PEG SCH (07:54)
[2021-08-08] MEDS: guaiFENesin ER 600mg tablet PO SCH ×2 (07:54→21:54)
[2021-08-08] MEDS: folic acid 1mg tablet PEG SCH (07:55)
[2021-08-08] MEDS: lactobacillus rhamnosus 10,000 MMU CELLS/CAPSULE PO SCH ×2 (07:55→21:54)
[2021-08-08] MEDS: docusate sodium 100mg/10ml UD cup PEG SCH ×2 (07:55→21:53)
[2021-08-08] MEDS: thiamine 100mg tablet PEG SCH (07:55)
[2021-08-08] MEDS: phenobarbital 30mg tablet PEG SCH ×2 (07:55→21:52)
[2021-08-08] MEDS: furosemide 40 MG/4 ML oral solution UD cup PEG SCH (07:56)
[2021-08-08] MEDS: heparin, porcine 5000 units/ml vial SQ SCH ×2 (07:57→21:54)
[2021-08-08] MEDS: K and/or MAG REPLACEMENT MC SCH ×2 (08:00→20:00)
[2021-08-08 11:00] VITALS: BP 92/59
[2021-08-08 13:03] LABS: BASOPHILS # (AUTO) 0.1 X10'3 (0-0.2); BASOPHILS % (AUTO) 0.9 % (0-1); EOSINOPHILS # (AUTO) 0.1 X10'3 (0-0.9); EOSINOPHILS % (AUTO) 0.9 % (0-6); HEMATOCRIT 29.2 % (42.0-52.0); HEMOGLOBIN 9.7 g/dl (14.0-17.9); LYMPHOCYTES # (AUTO) 1.8 X10'3 (1.1-4.8); LYMPHOCYTES % (AUTO) 16.5 % (21-51); MEAN CORPUSCULAR HEMOGLOBIN 30.6 PG (27.0-31.0); MEAN CORPUSCULAR HGB CONC 33.3 g/dL (33.0-36.5); MEAN PLATELET VOLUME 7.1 FL (7.4-10.4); MONOCYTES # (AUTO) 0.6 X10'3 (0-0.9); MONOCYTES % (AUTO) 5.8 % (2-12); NEUTROPHILS # (AUTO) 8.1 X10'3 (1.8-7.7); NEUTROPHILS % (AUTO) 75.9 % (42-75); PLATELET COUNT 557 X10'3 (140-440); RED BLOOD COUNT 3.17 X10'6 (4.70-6.10); RED CELL DISTRIBUTION WIDTH 17.3 % (11.5-14.5); WHITE BLOOD COUNT 10.7 X10'3 (4.5-11.0)
[2021-08-08 13:16] LABS: ALANINE AMINOTRANSFERASE 39 U/L (12-78); ALBUMIN 1.6 G/DL (3.4-5.0); ALBUMIN/GLOBULIN RATIO 0.3 (1.1-1.5); ALKALINE PHOSPHATASE 96 IU/L (46-116); ANION GAP 2 (8-16); ASPARTATE AMINO TRANSFERASE 24 U/L (10-37); BILIRUBIN,TOTAL 0.1 MG/DL (0.1-1.0); BLOOD UREA NITROGEN 17 MG/DL (7-18); BUN/CREATININE RATIO 43.6 (5.4-32.0); CHLORIDE 101 MMOL/L (99-107); CREATININE 0.39 MG/DL (0.60-1.10); GLUCOSE 114 MG/DL (70-104); POTASSIUM 4.1 MMOL/L (3.5-5.1); SODIUM 136 MMOL/L (135-145); TOTAL CARBON DIOXIDE 32.6 MMOL/L (24-32); eGFR > 90 ML/MIN
[2021-08-08 15:00] VITALS: BP 104/60
[2021-08-08 18:00] VITALS: BP 101/57
--- NOTE | 2021-08-08 18:24 | NUR ---
Problems reprioritized. Patient report given, questions answered & plan of care reviewed with Mirian.
[2021-08-08] MEDS: gabapentin 300mg capsule PEG SCH (21:53)
[2021-08-08] MEDS: donepezil 5mg tablet PEG SCH (21:54)
[2021-08-09] MEDS: ipratropium/albuterol 3ml nebule NEB SCH ×4 (02:27→21:02)
[2021-08-09 06:00] VITALS: BP 108/67
[2021-08-09] MEDS: furosemide 40 MG/4 ML oral solution UD cup PEG SCH (07:27)
[2021-08-09] MEDS: docusate sodium 100mg/10ml UD cup PEG SCH (07:27)
[2021-08-09] MEDS: lactobacillus rhamnosus 10,000 MMU CELLS/CAPSULE PO SCH (07:27)
[2021-08-09] MEDS: thiamine 100mg tablet PEG SCH (07:28)
[2021-08-09] MEDS: folic acid 1mg tablet PEG SCH (07:28)
[2021-08-09] MEDS: phenobarbital 30mg tablet PEG SCH (07:28)
[2021-08-09] MEDS: oxcarbazepine 150mg tablet PEG SCH ×2 (07:28→13:26)
[2021-08-09] MEDS: guaiFENesin ER 600mg tablet PO SCH (07:29)
[2021-08-09] MEDS: heparin, porcine 5000 units/ml vial SQ SCH (07:29)
[2021-08-09] MEDS: lansoprazole 15mg solutab PEG SCH (07:30)
[2021-08-09] MEDS: K and/or MAG REPLACEMENT MC SCH ×2 (08:00→20:00)
--- NOTE | 2021-08-09 09:55 | NUR ---
Reassessment: Pt continues to receive TF at goal using Vital AF at 66ml/hr while Jevity 1.2 out of stock, tolerating well. LBM 2/3 receiving routine colace. No change to recommendations at this time, will continue to monitor. Recommendations: 1) Continuous TF per MD using Vital AF at 66ml/hr goal to provide 1584ml volume, 1900kcals, 118g protein, 1283ml free water 2) When Jevity 1.2 available, Continuous Jevity 1.2 via PEG with goal rate of 75 mL/hr to provide 1800 mL total volume/day, 2160 kcal, 100 g protein, and 1453 mL water 2) Additional water flush 150ml Q4h; monitor serum Na 3) Prealbumin q Tuesday/ 4) Daily scaled weights 5) Routine bowel retirement BOLUS TF RECS: 1) Bolus TF via PEG QID using Jevity 1.5 or equivalent with goal of 375 mL. Begin at goal rate as pt tolerating higher volume bolus feeds during admit 2) Additional 80 mL water flush before and after each bolus feed 3) Outpatient RD to titrate to goal rate and adjust recommendations as appropriate based on patient's estimated nutrient needs Addendum: 08/09/21 at [address] Amended: Links added.
[2021-08-09 11:00] VITALS: BP 96/61
[2021-08-09 13:50] LABS: ALANINE AMINOTRANSFERASE 38 U/L (12-78); ALBUMIN 1.8 G/DL (3.4-5.0); ALBUMIN/GLOBULIN RATIO 0.3 (1.1-1.5); ALKALINE PHOSPHATASE 118 IU/L (46-116); ANION GAP 7 (8-16); ASPARTATE AMINO TRANSFERASE 22 U/L (10-37); BILIRUBIN,TOTAL 0.1 MG/DL (0.1-1.0); BLOOD UREA NITROGEN 16 MG/DL (7-18); BUN/CREATININE RATIO 35.6 (5.4-32.0); CALCIUM 8.7 MG/DL (8.5-10.1); CHLORIDE 100 MMOL/L (99-107); CREATININE 0.45 MG/DL (0.60-1.10); GLUCOSE 115 MG/DL (70-104); SODIUM 137 MMOL/L (135-145); TOTAL CARBON DIOXIDE 30.3 MMOL/L (24-32); TOTAL PROTEIN 7.6 G/DL (6.4-8.2); eGFR > 90 ML/MIN
[2021-08-09 13:51] LABS: BASOPHILS # (AUTO) 0.1 X10'3 (0-0.2); BASOPHILS % (AUTO) 0.6 % (0-1); EOSINOPHILS # (AUTO) 0.1 X10'3 (0-0.9); LYMPHOCYTES # (AUTO) 1.8 X10'3 (1.1-4.8); MONOCYTES # (AUTO) 0.7 X10'3 (0-0.9); MONOCYTES % (AUTO) 6.4 % (2-12); NEUTROPHILS # (AUTO) 8.6 X10'3 (1.8-7.7); RED CELL DISTRIBUTION WIDTH 17.2 % (11.5-14.5)
[2021-08-09 13:54] LABS: EOSINOPHILS % (AUTO) 0.9 % (0-6); HEMATOCRIT 31.4 % (42.0-52.0); HEMOGLOBIN 10.4 g/dl (14.0-17.9); LYMPHOCYTES % (AUTO) 15.6 % (21-51); MEAN CORPUSCULAR HEMOGLOBIN 30.8 PG (27.0-31.0); MEAN CORPUSCULAR HGB CONC 33.3 g/dL (33.0-36.5); MEAN CORPUSCULAR VOLUME 92.5 FL (78-98); MEAN PLATELET VOLUME 7.1 FL (7.4-10.4); NEUTROPHILS % (AUTO) 76.5 % (42-75); PLATELET COUNT 628 X10'3 (140-440); RED BLOOD COUNT 3.39 X10'6 (4.70-6.10); WHITE BLOOD COUNT 11.2 X10'3 (4.5-11.0)
[2021-08-09 15:00] VITALS: BP 99/67
--- NOTE | 2021-08-09 18:09 | NUR ---
Problems reprioritized. Patient report given, questions answered & plan of care reviewed with Erin.
[2021-08-09 20:00] VITALS: BP 96/71
[2021-08-09 22:00] VITALS: BP 132/62
[2021-08-10] MEDS: phenobarbital 30mg tablet PEG SCH ×3 (00:05→20:57)
[2021-08-10] MEDS: docusate sodium 100mg/10ml UD cup PEG SCH ×3 (00:05→20:55)
[2021-08-10] MEDS: heparin, porcine 5000 units/ml vial SQ SCH ×3 (00:06→20:56)
[2021-08-10] MEDS: gabapentin 300mg capsule PEG SCH ×2 (00:06→20:56)
[2021-08-10] MEDS: guaiFENesin ER 600mg tablet PO SCH ×3 (00:07→20:56)
[2021-08-10] MEDS: donepezil 5mg tablet PEG SCH ×2 (00:07→20:57)
[2021-08-10] MEDS: oxcarbazepine 150mg tablet PEG SCH ×4 (00:08→20:59)
[2021-08-10] MEDS: lactobacillus rhamnosus 10,000 MMU CELLS/CAPSULE PO SCH ×3 (00:35→20:56)
[2021-08-10 02:00] VITALS: BP 125/64
[2021-08-10] MEDS: ipratropium/albuterol 3ml nebule NEB SCH ×4 (03:02→21:03)
[2021-08-10 06:00] VITALS: BP 115/58
[2021-08-10 06:55] LABS: BASOPHILS % (AUTO) 0.4 % (0-1); EOSINOPHILS # (AUTO) 0.1 X10'3 (0-0.9); EOSINOPHILS % (AUTO) 0.7 % (0-6); HEMATOCRIT 30.1 % (42.0-52.0); LYMPHOCYTES % (AUTO) 17.9 % (21-51); MEAN CORPUSCULAR HGB CONC 33.4 g/dL (33.0-36.5); MEAN CORPUSCULAR VOLUME 92.7 FL (78-98); MONOCYTES # (AUTO) 0.7 X10'3 (0-0.9); MONOCYTES % (AUTO) 6.2 % (2-12); NEUTROPHILS # (AUTO) 8.5 X10'3 (1.8-7.7); NEUTROPHILS % (AUTO) 74.8 % (42-75); PLATELET COUNT 599 X10'3 (140-440); RED BLOOD COUNT 3.24 X10'6 (4.70-6.10); RED CELL DISTRIBUTION WIDTH 17.2 % (11.5-14.5); WHITE BLOOD COUNT 11.3 X10'3 (4.5-11.0)
[2021-08-10] MEDS: furosemide 40 MG/4 ML oral solution UD cup PEG SCH (07:50)
[2021-08-10] MEDS: lansoprazole 15mg solutab PEG SCH (07:51)
[2021-08-10] MEDS: folic acid 1mg tablet PEG SCH (07:51)
[2021-08-10] MEDS: thiamine 100mg tablet PEG SCH (07:52)
[2021-08-10 07:58] LABS: ALANINE AMINOTRANSFERASE 33 U/L (12-78); ALBUMIN 1.7 G/DL (3.4-5.0); ALBUMIN/GLOBULIN RATIO 0.3 (1.1-1.5); ALKALINE PHOSPHATASE 105 IU/L (46-116); ANION GAP 7 (8-16); ASPARTATE AMINO TRANSFERASE 15 U/L (10-37); BILIRUBIN,TOTAL 0.1 MG/DL (0.1-1.0); BLOOD UREA NITROGEN 17 MG/DL (7-18); CALCIUM 8.3 MG/DL (8.5-10.1); CHLORIDE 101 MMOL/L (99-107); CREATININE 0.34 MG/DL (0.60-1.10); GLUCOSE 125 MG/DL (70-104); SODIUM 139 MMOL/L (135-145); TOTAL CARBON DIOXIDE 30.6 MMOL/L (24-32); TOTAL PROTEIN 7.3 G/DL (6.4-8.2); eGFR > 90 ML/MIN
[2021-08-10] MEDS: K and/or MAG REPLACEMENT MC SCH ×2 (08:00→20:00)
[2021-08-10 11:00] VITALS: BP 121/63
[2021-08-10 15:00] VITALS: BP 130/70
[2021-08-11] MEDS: ipratropium/albuterol 3ml nebule NEB SCH ×3 (02:26→16:03)
[2021-08-11 04:07] VITALS: BP 99/59
--- NOTE | 2021-08-11 04:25 | NUR ---
This is a 66-year-old male, admitted 06/13/2021, day 59 of hospitalization, full code, NDA. No isolation. PMH of dementia, seizure disorder noncompliant with treatment, history of CVA, history of anemia, presented today to emergency department chief complaint difficulty breathing in addition patient was brought to ED via EMS from home after an alleged fall. Patient reportedly fell this evening and struck his left ribs and now has an area of swelling to the left lateral ribs. Patient denies any head trauma or loss of consciousness. EMS states this is patient's only complaint at this time. Pain is worse with a deep breath and is currently rated 7/10. EMS also notes patient was refusing IV en route. No additional complaints or concerns. Currently, pt is afebrile, denies pain , soft raspy voice, wet voice. Tele box 13, HR 69 SR 130/60, no edema, heparin for DVT prophylaxis, No IVF. RR 20 PO 96% 2L NC, breath sounds non labored, wet cough. NT Suction multiple times for thick law white secretions. Hypoactive bowel sounds, soft sunken abdomen, no BM, Vital AF infusing at 66 mls hour. Glucose checks q 6 hours. Skin intact. Pt awaiting placement for rehab. Pt remains safe, continue to monitor.
[2021-08-11 06:00] VITALS: BP 112/75
[2021-08-11] MEDS: K and/or MAG REPLACEMENT MC SCH ×2 (08:00→20:00)
[2021-08-11] MEDS: lactobacillus rhamnosus 10,000 MMU CELLS/CAPSULE PO SCH ×2 (08:33→21:01)
[2021-08-11] MEDS: thiamine 100mg tablet PEG SCH (08:34)
[2021-08-11] MEDS: furosemide 40 MG/4 ML oral solution UD cup PEG SCH (08:34)
[2021-08-11] MEDS: guaiFENesin ER 600mg tablet PO SCH ×2 (08:34→20:00)
[2021-08-11] MEDS: oxcarbazepine 150mg tablet PEG SCH ×3 (08:34→21:00)
[2021-08-11] MEDS: heparin, porcine 5000 units/ml vial SQ SCH ×2 (08:34→21:01)
[2021-08-11] MEDS: phenobarbital 30mg tablet PEG SCH ×2 (08:34→20:59)
[2021-08-11] MEDS: docusate sodium 100mg/10ml UD cup PEG SCH ×2 (08:34→20:58)
[2021-08-11] MEDS: folic acid 1mg tablet PEG SCH (08:35)
[2021-08-11] MEDS: lansoprazole 15mg solutab PEG SCH (08:35)
--- NOTE | 2021-08-11 14:48 | NUR ---
Reassessment: Initial recommended TF formula now in stock. Updated recommendations below have been placed in EMR and d/w RN. Pt continues tolerating TF with GRV WNL. LBM 2/3, receiving routine bowel care BID with additional PRN bowel care available. Will continue to follow and make recommendations as appropriate. Recommendations: 1) Continuous Jevity 1.2 via PEG with goal rate of 75 mL/hr to provide 1800 mL total volume/day, 2160 kcal, 100 g protein, and 1453 mL water 2) Additional 120 mL water flush Q4H; monitor serum Na 3) Prealbumin q Tuesday/ 4) Daily scaled weights 5) Routine bowel halfway BOLUS TF RECS: 1) Bolus TF via PEG QID using Jevity 1.5 or equivalent with goal of 375 mL. Begin at 125 mL bolus and advance by 50 mL each bolus as tolerated to goal rate 2) Additional 80 mL water flush before and after each bolus feed 3) Outpatient RD to titrate to goal rate and adjust recommendations as appropriate based on patient's estimated nutrient needs Addendum: 08/11/21 at [address] Amended: Links added.
--- NOTE | 2021-08-11 17:00 | NUR ---
Mr Solis has been assessed as indicted. he continues to produce thick secretions he uses the yankauer himself he has requiered NT suctioning 2x this shift. He continues to deny pain. He was visiste by his brother jacinda Glover he sstates that he can be reached at [phone]. He has some concerns about Mr Solis's discharge and placement plan. He wanted to speak with case management. A message was left for him with that department. he states that he will return tomorrow.
[2021-08-11 18:00] VITALS: BP 99/68
--- NOTE | 2021-08-11 18:00 | NUR ---
Problems reprioritized. Patient report given, questions answered & plan of care reviewed with NAN .
[2021-08-11 19:13] VITALS: BP 113/72
[2021-08-11] MEDS: gabapentin 300mg capsule PEG SCH (20:59)
[2021-08-11] MEDS: donepezil 5mg tablet PEG SCH (21:00)
[2021-08-11 22:00] VITALS: BP 127/71
[2021-08-12 02:00] VITALS: BP 103/59
[2021-08-12] MEDS: ipratropium/albuterol 3ml nebule NEB SCH ×4 (02:57→23:00)
[2021-08-12 06:00] VITALS: BP 97/60
[2021-08-12] MEDS: K and/or MAG REPLACEMENT MC SCH ×2 (08:00→20:00)
[2021-08-12] MEDS: oxcarbazepine 150mg tablet PEG SCH ×3 (08:20→20:43)
[2021-08-12] MEDS: docusate sodium 100mg/10ml UD cup PEG SCH ×2 (08:20→20:27)
[2021-08-12] MEDS: furosemide 40 MG/4 ML oral solution UD cup PEG SCH (08:21)
[2021-08-12] MEDS: thiamine 100mg tablet PEG SCH (08:21)
[2021-08-12] MEDS: guaiFENesin ER 600mg tablet PO SCH ×2 (08:21→20:00)
[2021-08-12] MEDS: lactobacillus rhamnosus 10,000 MMU CELLS/CAPSULE PO SCH ×2 (08:21→20:27)
[2021-08-12] MEDS: heparin, porcine 5000 units/ml vial SQ SCH ×2 (08:21→20:28)
[2021-08-12] MEDS: lansoprazole 15mg solutab PEG SCH (08:21)
[2021-08-12] MEDS: phenobarbital 30mg tablet PEG SCH ×2 (08:21→20:27)
[2021-08-12] MEDS: folic acid 1mg tablet PEG SCH (08:22)
[2021-08-12] MEDS: normal saline 500ml IV soln 500 ML IV SCH ×2 (10:05→17:14)
[2021-08-12 11:00] VITALS: BP 111/66
[2021-08-12 15:00] VITALS: BP 107/72
[2021-08-12 16:50] LABS: ALANINE AMINOTRANSFERASE 30 U/L (12-78); ALBUMIN/GLOBULIN RATIO 0.3 (1.1-1.5); ALKALINE PHOSPHATASE 117 IU/L (46-116); ANION GAP 8 (8-16); ASPARTATE AMINO TRANSFERASE 18 U/L (10-37); BASOPHILS # (AUTO) 0.1 X10'3 (0-0.2); BILIRUBIN,TOTAL 0.1 MG/DL (0.1-1.0); BLOOD UREA NITROGEN 21 MG/DL (7-18); BUN/CREATININE RATIO 52.5 (5.4-32.0); CALCIUM 8.7 MG/DL (8.5-10.1); CHLORIDE 99 MMOL/L (99-107); EOSINOPHILS # (AUTO) 0.1 X10'3 (0-0.9); EOSINOPHILS % (AUTO) 0.9 % (0-6); GLUCOSE 89 MG/DL (70-104); HEMOGLOBIN 10.5 g/dl (14.0-17.9); MEAN PLATELET VOLUME 7.3 FL (7.4-10.4); POTASSIUM 4.5 MMOL/L (3.5-5.1); SODIUM 138 MMOL/L (135-145); TOTAL CARBON DIOXIDE 30.6 MMOL/L (24-32); TOTAL PROTEIN 8.1 G/DL (6.4-8.2); eGFR > 90 ML/MIN
[2021-08-12 16:52] LABS: BASOPHILS % (AUTO) 0.4 % (0-1); HEMATOCRIT 32.7 % (42.0-52.0); LYMPHOCYTES # (AUTO) 2.9 X10'3 (1.1-4.8); LYMPHOCYTES % (AUTO) 18.2 % (21-51); MEAN CORPUSCULAR HEMOGLOBIN 29.9 PG (27.0-31.0); MEAN CORPUSCULAR VOLUME 93.4 FL (78-98); MONOCYTES # (AUTO) 0.9 X10'3 (0-0.9); MONOCYTES % (AUTO) 5.5 % (2-12); NEUTROPHILS # (AUTO) 11.8 X10'3 (1.8-7.7); PLATELET COUNT 659 X10'3 (140-440); RED CELL DISTRIBUTION WIDTH 17.9 % (11.5-14.5); WHITE BLOOD COUNT 15.7 X10'3 (4.5-11.0)
--- NOTE | 2021-08-12 17:45 | NUR ---
Mr Solis has been assessed as indicted. His TF has been held related to aspiration risk. CXR has been completed. RT states that he is not a candidate for CPT. His secretions are slightly decreased. He has not required NT suction. He does continue to use the yankauer himself. He tolerated very little weight bearing with PT. He was unable to stand or be assisted to the chair. He is resting quietly at this time
[2021-08-12 18:00] VITALS: BP 121/74
--- NOTE | 2021-08-12 18:15 | NUR ---
Problems reprioritized. Patient report given, questions answered & plan of care reviewed with sobeida .
[2021-08-12] MEDS: gabapentin 300mg capsule PEG SCH (20:43)
[2021-08-12] MEDS: donepezil 5mg tablet PEG SCH (20:43)
[2021-08-12 22:00] VITALS: BP 106/57
[2021-08-13] MEDS: normal saline 500ml IV soln 500 ML IV SCH (00:23)
[2021-08-13 02:00] VITALS: BP 99/65
[2021-08-13] MEDS: ipratropium/albuterol 3ml nebule NEB SCH ×4 (02:27→22:01)
[2021-08-13 05:10] LABS: BASOPHILS # (AUTO) 0.1 X10'3 (0-0.2); EOSINOPHILS # (AUTO) 0.1 X10'3 (0-0.9); MEAN CORPUSCULAR VOLUME 92.7 FL (78-98); MEAN PLATELET VOLUME 6.9 FL (7.4-10.4)
[2021-08-13 05:12] LABS: BASOPHILS % (AUTO) 0.6 % (0-1); EOSINOPHILS % (AUTO) 0.8 % (0-6); HEMATOCRIT 31.7 % (42.0-52.0); LYMPHOCYTES # (AUTO) 2.4 X10'3 (1.1-4.8); LYMPHOCYTES % (AUTO) 18.9 % (21-51); MEAN CORPUSCULAR HEMOGLOBIN 29.2 PG (27.0-31.0); MEAN CORPUSCULAR HGB CONC 31.5 g/dL (33.0-36.5); MONOCYTES # (AUTO) 0.5 X10'3 (0-0.9); MONOCYTES % (AUTO) 3.9 % (2-12); NEUTROPHILS # (AUTO) 9.6 X10'3 (1.8-7.7); NEUTROPHILS % (AUTO) 75.8 % (42-75); PLATELET COUNT 630 X10'3 (140-440); RED BLOOD COUNT 3.42 X10'6 (4.70-6.10); WHITE BLOOD COUNT 12.6 X10'3 (4.5-11.0)
[2021-08-13 05:44] LABS: ALANINE AMINOTRANSFERASE 30 U/L (12-78); ALBUMIN 1.8 G/DL (3.4-5.0); ALBUMIN/GLOBULIN RATIO 0.3 (1.1-1.5); ALKALINE PHOSPHATASE 109 IU/L (46-116); ANION GAP 6 (8-16); ASPARTATE AMINO TRANSFERASE 16 U/L (10-37); BILIRUBIN,TOTAL 0.2 MG/DL (0.1-1.0); BLOOD UREA NITROGEN 19 MG/DL (7-18); BUN/CREATININE RATIO 40.4 (5.4-32.0); CALCIUM 8.5 MG/DL (8.5-10.1); CHLORIDE 103 MMOL/L (99-107); CREATININE 0.47 MG/DL (0.60-1.10); GLUCOSE 80 MG/DL (70-104); POTASSIUM 4.1 MMOL/L (3.5-5.1); SODIUM 141 MMOL/L (135-145); TOTAL CARBON DIOXIDE 31.8 MMOL/L (24-32); TOTAL PROTEIN 7.6 G/DL (6.4-8.2); eGFR > 90 ML/MIN
[2021-08-13 06:00] VITALS: BP 100/62
[2021-08-13] MEDS: hyoscyamine 0.125mg TAB.SUBL SL PRN (06:12)
[2021-08-13] MEDS: K and/or MAG REPLACEMENT MC SCH ×2 (08:00→20:00)
[2021-08-13] MEDS: HYDROcodone/acetaminophen 7.5MG/325MG per 15ml UD CUP PEG PRN (08:02)
[2021-08-13] MEDS: guaiFENesin ER 600mg tablet PO SCH (08:03)
[2021-08-13] MEDS: lactobacillus rhamnosus 10,000 MMU CELLS/CAPSULE PO SCH (08:03)
[2021-08-13] MEDS: heparin, porcine 5000 units/ml vial SQ SCH ×2 (08:03→21:01)
[2021-08-13] MEDS: furosemide 40 MG/4 ML oral solution UD cup PEG SCH (08:03)
[2021-08-13] MEDS: oxcarbazepine 150mg tablet PEG SCH ×3 (08:03→20:59)
[2021-08-13] MEDS: folic acid 1mg tablet PEG SCH (08:03)
[2021-08-13] MEDS: thiamine 100mg tablet PEG SCH (08:03)
[2021-08-13] MEDS: phenobarbital 30mg tablet PEG SCH ×2 (08:03→20:59)
[2021-08-13] MEDS: lansoprazole 15mg solutab PEG SCH (08:03)
[2021-08-13] MEDS: docusate sodium 100mg/10ml UD cup PEG SCH ×2 (08:03→21:01)
[2021-08-13] MEDS: normal saline 1000ml 1,000 ML IV SCH ×2 (08:24→21:18)
[2021-08-13 11:00] VITALS: BP 101/72
--- NOTE | 2021-08-13 13:24 | NUR ---
F/u: Noted TF has been held r/t aspiration risk per supply chain vice president. GRV has been WNL since receiving TF and pt with thick secretions per RN notes. TC with MD who states it's okay to resume TF though begin at 30 mL/hr and advance to goal rate as tolerated. Will update EMR with TF diet order as previous TF diet was discontinued. Chest x-ray shows improvement of pneumonia per MD note. Will continue to follow. Recommendations: 1) Continuous Jevity 1.2 via PEG with goal rate of 75 mL/hr to provide 1800 mL total volume/day, 2160 kcal, 100 g protein, and 1453 mL water 2) Additional 120 mL water flush Q4H; monitor serum Na 3) Prealbumin q Tuesday/ 4) Daily scaled weights 5) Routine bowel care; utilize PRN bowel care if pt not having routine bowel movements HOME BOLUS TF RECS: 1) Bolus TF via PEG QID using Jevity 1.5 or equivalent with goal of 375 mL. Begin at 125 mL bolus and advance by 50 mL each bolus as tolerated to goal rate 2) Additional 80 mL water flush before and after each bolus feed 3) Outpatient RD to titrate to goal rate and adjust recommendations as appropriate based on patient's estimated nutrient needs Addendum: 08/13/21 at [address] Amended: Links added.
[2021-08-13 15:00] VITALS: BP 115/75
--- NOTE | 2021-08-13 15:04 | NUR ---
F/u: Pt seen at bedside with visible signs of severe fat and muscle wasting. Pt documented with severe muscle weakness per EMR. Pt currently meets criteria for malnutrition. Noted patient's TF has been resumed, currently running at 30 mL/hr and working towards goal rate. Once at goal rate TF will meet 100% of estimated nutrient needs using IBW. Will continue to follow. Addendum: 08/13/21 at [address] Amended: Links added.
[2021-08-13 15:42] LABS: PREALBUMIN 15.5 MG/DL (19-36)
--- NOTE | 2021-08-13 17:25 | NUR ---
Mr Solis has been assessed as indicated. He has been successfully treated for pain 1x this shift. TF has been resumed at 30ml with a goal of 75. This has been well tolerated. There are no residuals at this time. He has had several voids with no BM this shift. There was a family meeting with many of his siblings this shift with mental health social worker. He continues to receive nebulizers and these are well tolerated. He is presently resting quietly.
[2021-08-13 18:00] VITALS: BP 99/55
--- NOTE | 2021-08-13 18:24 | NUR ---
Problems reprioritized. Patient report given, questions answered & plan of care reviewed with AMANDA MAY. Addendum: 08/13/21 at 1825 by Grecia Shearer RN CORRECTION: Problems reprioritized. Patient report given, questions answered & plan of care reviewed with TAMMIE MAY.
[2021-08-13] MEDS: gabapentin 300mg capsule PEG SCH (20:59)
[2021-08-13] MEDS: lactobacillus rhamnosus 10,000 MMU CELLS/CAPSULE PEG SCH (21:00)
[2021-08-13] MEDS: donepezil 5mg tablet PEG SCH (21:00)
[2021-08-13 22:00] VITALS: BP 101/53
[2021-08-14] MEDS: ipratropium/albuterol 3ml nebule NEB SCH ×4 (02:45→20:20)
[2021-08-14] MEDS: hyoscyamine 0.125mg TAB.SUBL SL PRN (04:42)
[2021-08-14] MEDS: magnesium hydroxide 30ml (MOM) UD suspension PEG PRN (04:42)
[2021-08-14 06:00] VITALS: BP 90/55
[2021-08-14] MEDS: lansoprazole 15mg solutab PEG SCH (07:30)
[2021-08-14] MEDS: K and/or MAG REPLACEMENT MC SCH ×2 (08:00→19:22)
[2021-08-14] MEDS: thiamine 100mg tablet PEG SCH ×2 (08:06→08:11)
[2021-08-14] MEDS: oxcarbazepine 150mg tablet PEG SCH ×3 (08:07→20:48)
[2021-08-14] MEDS: lactobacillus rhamnosus 10,000 MMU CELLS/CAPSULE PEG SCH ×2 (08:07→19:20)
[2021-08-14] MEDS: heparin, porcine 5000 units/ml vial SQ SCH ×2 (08:09→19:21)
[2021-08-14] MEDS: docusate sodium 100mg/10ml UD cup PEG SCH ×2 (08:09→19:20)
[2021-08-14] MEDS: folic acid 1mg tablet PEG SCH (08:12)
[2021-08-14] MEDS: phenobarbital 30mg tablet PEG SCH ×2 (08:12→19:21)
[2021-08-14 11:00] VITALS: BP 93/60
[2021-08-14] MEDS: normal saline 1000ml 1,000 ML IV SCH (11:36)
[2021-08-14 15:00] VITALS: BP 99/67
[2021-08-14 18:00] VITALS: BP 111/66
[2021-08-14] MEDS: gabapentin 300mg capsule PEG SCH (20:48)
[2021-08-14] MEDS: donepezil 5mg tablet PEG SCH (20:48)
[2021-08-14] MEDS: temazepam 15mg capsule PEG PRN (21:46)
[2021-08-14 22:00] VITALS: BP 101/59
[2021-08-15] MEDS: normal saline 1000ml 1,000 ML IV SCH ×2 (01:57→16:12)
[2021-08-15] MEDS: ipratropium/albuterol 3ml nebule NEB SCH ×4 (02:58→21:15)
[2021-08-15] MEDS: HYDROcodone/acetaminophen 7.5MG/325MG per 15ml UD CUP PEG PRN ×3 (04:17→20:23)
[2021-08-15] MEDS ORDERED: metoprolol tartrate 25mg tablet NG ONE (05:05)
[2021-08-15 06:00] VITALS: BP 89/50
--- NOTE | 2021-08-15 06:05 | NUR ---
Patient noted with occasional periods of coughing during the night, patient repositioned, and suctioned, head of bed elevated. At 4.30am patient noted tachy in the 140s; patient stated pain to arm; medicated with [place] PRN, but heart rate still in the 130s. MD Solorio notified, and order for Metoprolol 25mg one time noted and carried out. Heart rate presently 108, patient denies pain.
[2021-08-15] MEDS: K and/or MAG REPLACEMENT MC SCH ×2 (08:00→20:00)
[2021-08-15] MEDS: lactobacillus rhamnosus 10,000 MMU CELLS/CAPSULE PEG SCH ×2 (08:18→20:24)
[2021-08-15] MEDS: folic acid 1mg tablet PEG SCH (08:18)
[2021-08-15] MEDS: docusate sodium 100mg/10ml UD cup PEG SCH ×2 (08:18→20:23)
[2021-08-15] MEDS: phenobarbital 30mg tablet PEG SCH ×2 (08:19→20:24)
[2021-08-15] MEDS: lansoprazole 15mg solutab PEG SCH (08:19)
[2021-08-15] MEDS: oxcarbazepine 150mg tablet PEG SCH ×3 (08:20→20:26)
[2021-08-15] MEDS: heparin, porcine 5000 units/ml vial SQ SCH ×2 (08:20→20:24)
[2021-08-15 11:00] VITALS: BP 112/91
[2021-08-15 14:39] LABS: BASOPHILS % (AUTO) 0.2 % (0-1); EOSINOPHILS % (AUTO) 0.1 % (0-6); HEMATOCRIT 29.8 % (42.0-52.0); HEMOGLOBIN 9.7 g/dl (14.0-17.9); LYMPHOCYTES # (AUTO) 1.6 X10'3 (1.1-4.8); LYMPHOCYTES % (AUTO) 9.9 % (21-51); MEAN CORPUSCULAR HEMOGLOBIN 30.3 PG (27.0-31.0); MEAN CORPUSCULAR HGB CONC 32.6 g/dL (33.0-36.5); MEAN PLATELET VOLUME 6.9 FL (7.4-10.4); MONOCYTES # (AUTO) 0.5 X10'3 (0-0.9); MONOCYTES % (AUTO) 3.1 % (2-12); NEUTROPHILS # (AUTO) 14.1 X10'3 (1.8-7.7); NEUTROPHILS % (AUTO) 86.7 % (42-75); PLATELET COUNT 497 X10'3 (140-440); RED BLOOD COUNT 3.21 X10'6 (4.70-6.10); RED CELL DISTRIBUTION WIDTH 17.6 % (11.5-14.5); WHITE BLOOD COUNT 16.3 X10'3 (4.5-11.0)
[2021-08-15 14:58] LABS: ALANINE AMINOTRANSFERASE 17 U/L (12-78); ALBUMIN 1.6 G/DL (3.4-5.0); ALBUMIN/GLOBULIN RATIO 0.3 (1.1-1.5); ALKALINE PHOSPHATASE 92 IU/L (46-116); ANION GAP 9 (8-16); ASPARTATE AMINO TRANSFERASE 13 U/L (10-37); BLOOD UREA NITROGEN 11 MG/DL (7-18); BUN/CREATININE RATIO 23.4 (5.4-32.0); CALCIUM 7.7 MG/DL (8.5-10.1); CHLORIDE 106 MMOL/L (99-107); CREATININE 0.47 MG/DL (0.60-1.10); GLUCOSE 134 MG/DL (70-104); POTASSIUM 4.1 MMOL/L (3.5-5.1); SODIUM 141 MMOL/L (135-145); TOTAL CARBON DIOXIDE 26.2 MMOL/L (24-32); TOTAL PROTEIN 6.4 G/DL (6.4-8.2); eGFR > 90 ML/MIN
[2021-08-15 15:00] VITALS: BP 102/63
--- NOTE | 2021-08-15 18:38 | NUR ---
Problems reprioritized. Patient report given, questions answered & plan of care reviewed with Lissy.
[2021-08-15] MEDS: gabapentin 300mg capsule PEG SCH (20:24)
[2021-08-15] MEDS: temazepam 15mg capsule PEG PRN (20:24)
[2021-08-15] MEDS: donepezil 5mg tablet PEG SCH (20:24)
[2021-08-16 02:00] VITALS: BP 100/61
[2021-08-16] MEDS: ipratropium/albuterol 3ml nebule NEB SCH ×4 (03:05→22:21)
[2021-08-16 06:00] VITALS: BP 154/55
[2021-08-16] MEDS: normal saline 1000ml 1,000 ML IV SCH ×3 (06:33→23:19)
[2021-08-16] MEDS: K and/or MAG REPLACEMENT MC SCH ×2 (08:00→20:00)
[2021-08-16] MEDS: HYDROcodone/acetaminophen 7.5MG/325MG per 15ml UD CUP PEG PRN ×2 (08:18→17:44)
[2021-08-16] MEDS: lansoprazole 15mg solutab PEG SCH (08:18)
[2021-08-16] MEDS: phenobarbital 30mg tablet PEG SCH ×2 (08:18→19:59)
[2021-08-16] MEDS: lactobacillus rhamnosus 10,000 MMU CELLS/CAPSULE PEG SCH ×2 (08:18→19:59)
[2021-08-16] MEDS: oxcarbazepine 150mg tablet PEG SCH ×3 (08:19→19:58)
[2021-08-16] MEDS: folic acid 1mg tablet PEG SCH (08:19)
[2021-08-16] MEDS: thiamine 100mg tablet PEG SCH (08:19)
[2021-08-16] MEDS: docusate sodium 100mg/10ml UD cup PEG SCH ×2 (08:20→19:59)
[2021-08-16] MEDS: heparin, porcine 5000 units/ml vial SQ SCH ×2 (08:20→20:00)
[2021-08-16 09:45] LABS: ALANINE AMINOTRANSFERASE 18 U/L (12-78); ALBUMIN 1.5 G/DL (3.4-5.0); ALBUMIN/GLOBULIN RATIO 0.3 (1.1-1.5); ALKALINE PHOSPHATASE 83 IU/L (46-116); ANION GAP 1 (8-16); ASPARTATE AMINO TRANSFERASE 11 U/L (10-37); BILIRUBIN,TOTAL 0.1 MG/DL (0.1-1.0); BLOOD UREA NITROGEN 10 MG/DL (7-18); CHLORIDE 104 MMOL/L (99-107); CREATININE 0.27 MG/DL (0.60-1.10); GLUCOSE 124 MG/DL (70-104); POTASSIUM 4.4 MMOL/L (3.5-5.1); SODIUM 136 MMOL/L (135-145); TOTAL CARBON DIOXIDE 31.2 MMOL/L (24-32); TOTAL PROTEIN 6.3 G/DL (6.4-8.2); eGFR > 90 ML/MIN
[2021-08-16 09:52] LABS: BASOPHILS % (AUTO) 0.3 % (0-1); EOSINOPHILS # (AUTO) 0.1 X10'3 (0-0.9); EOSINOPHILS % (AUTO) 1.3 % (0-6); HEMATOCRIT 29.5 % (42.0-52.0); HEMOGLOBIN 9.6 g/dl (14.0-17.9); LYMPHOCYTES # (AUTO) 1.8 X10'3 (1.1-4.8); LYMPHOCYTES % (AUTO) 19.5 % (21-51); MEAN CORPUSCULAR HEMOGLOBIN 30.4 PG (27.0-31.0); MEAN CORPUSCULAR HGB CONC 32.4 g/dL (33.0-36.5); MEAN CORPUSCULAR VOLUME 93.9 FL (78-98); MEAN PLATELET VOLUME 6.9 FL (7.4-10.4); MONOCYTES # (AUTO) 0.6 X10'3 (0-0.9); NEUTROPHILS # (AUTO) 6.5 X10'3 (1.8-7.7); NEUTROPHILS % (AUTO) 71.9 % (42-75); PLATELET COUNT 446 X10'3 (140-440); RED BLOOD COUNT 3.15 X10'6 (4.70-6.10); RED CELL DISTRIBUTION WIDTH 17.8 % (11.5-14.5); WHITE BLOOD COUNT 9.1 X10'3 (4.5-11.0)
[2021-08-16 11:00] VITALS: BP 123/55
[2021-08-16 15:00] VITALS: BP 117/71
--- NOTE | 2021-08-16 18:03 | NUR ---
Problems reprioritized. Patient report given, questions answered & plan of care reviewed with Lissy MAY.
[2021-08-16] MEDS: temazepam 15mg capsule PEG PRN (19:59)
[2021-08-16] MEDS: gabapentin 300mg capsule PEG SCH (19:59)
[2021-08-16] MEDS: donepezil 5mg tablet PEG SCH (19:59)
--- NOTE | 2021-08-16 23:00 | NUR ---
NO CHANGE TO HINA MAY'S PHYSICAL ASSESSMENT. PT RESTING COMFORTABLY AND TUBE FEEDING RUNNING W/O ISSUE.
[2021-08-16 23:45] VITALS: BP 93/57
[2021-08-17] MEDS: ipratropium/albuterol 3ml nebule NEB SCH ×4 (02:36→20:31)
[2021-08-17] MEDS: HYDROcodone/acetaminophen 7.5MG/325MG per 15ml UD CUP PEG PRN (03:58)
[2021-08-17 05:18] VITALS: BP 93/57
--- NOTE | 2021-08-17 06:00 | NUR ---
Patient in room [facility]ER[facility] 348. I have received report from NOC RN and had the opportunity to ask questions and assume patient care. gf/sn
--- NOTE | 2021-08-17 06:26 | NUR ---
Problems reprioritized. Patient report given, questions answered & plan of care reviewed with SOPHIA. Addendum: 08/17/21 at 0627 by Eloy Heller RN Amended: Links added.
[2021-08-17 06:56] LABS: BASOPHILS % (AUTO) 0.4 % (0-1); EOSINOPHILS # (AUTO) 0.1 X10'3 (0-0.9); EOSINOPHILS % (AUTO) 0.8 % (0-6); HEMATOCRIT 28.2 % (42.0-52.0); HEMOGLOBIN 9.3 g/dl (14.0-17.9); LYMPHOCYTES # (AUTO) 1.4 X10'3 (1.1-4.8); LYMPHOCYTES % (AUTO) 11.7 % (21-51); MEAN CORPUSCULAR HEMOGLOBIN 30.4 PG (27.0-31.0); MEAN CORPUSCULAR VOLUME 92.1 FL (78-98); MEAN PLATELET VOLUME 7.1 FL (7.4-10.4); MONOCYTES # (AUTO) 0.6 X10'3 (0-0.9); MONOCYTES % (AUTO) 4.7 % (2-12); NEUTROPHILS # (AUTO) 10.1 X10'3 (1.8-7.7); NEUTROPHILS % (AUTO) 82.4 % (42-75); PLATELET COUNT 449 X10'3 (140-440); RED BLOOD COUNT 3.07 X10'6 (4.70-6.10); RED CELL DISTRIBUTION WIDTH 17.2 % (11.5-14.5); WHITE BLOOD COUNT 12.2 X10'3 (4.5-11.0)
[2021-08-17 07:21] VITALS: BP 119/68
[2021-08-17] MEDS: docusate sodium 100mg/10ml UD cup PEG SCH ×2 (07:21→20:46)
[2021-08-17] MEDS: lactobacillus rhamnosus 10,000 MMU CELLS/CAPSULE PEG SCH ×2 (07:21→20:47)
[2021-08-17] MEDS: folic acid 1mg tablet PEG SCH (07:22)
[2021-08-17] MEDS: phenobarbital 30mg tablet PEG SCH ×2 (07:22→20:47)
[2021-08-17] MEDS: thiamine 100mg tablet PEG SCH (07:22)
[2021-08-17] MEDS: oxcarbazepine 150mg tablet PEG SCH ×3 (07:22→20:49)
[2021-08-17] MEDS: lansoprazole 15mg solutab PEG SCH (07:22)
[2021-08-17 07:23] LABS: ALANINE AMINOTRANSFERASE 20 U/L (12-78); ALBUMIN 1.5 G/DL (3.4-5.0); ALBUMIN/GLOBULIN RATIO 0.3 (1.1-1.5); ALKALINE PHOSPHATASE 84 IU/L (46-116); ANION GAP 5 (8-16); ASPARTATE AMINO TRANSFERASE 14 U/L (10-37); BILIRUBIN,TOTAL 0.1 MG/DL (0.1-1.0); BLOOD UREA NITROGEN 11 MG/DL (7-18); BUN/CREATININE RATIO 26.8 (5.4-32.0); CHLORIDE 101 MMOL/L (99-107); CREATININE 0.41 MG/DL (0.60-1.10); GLUCOSE 111 MG/DL (70-104); POTASSIUM 4.7 MMOL/L (3.5-5.1); PREALBUMIN 13.4 MG/DL (19-36); SODIUM 135 MMOL/L (135-145); TOTAL CARBON DIOXIDE 28.9 MMOL/L (24-32); TOTAL PROTEIN 6.3 G/DL (6.4-8.2); eGFR > 90 ML/MIN
[2021-08-17] MEDS: heparin, porcine 5000 units/ml vial SQ SCH ×2 (07:23→20:48)
[2021-08-17] MEDS: K and/or MAG REPLACEMENT MC SCH ×2 (08:00→20:00)
--- NOTE | 2021-08-17 11:54 | NUR ---
PAGER ID: [phone] MESSAGE: [id number] Will, I: JEMIMA...heart rate is 129, has been in the hundreds most of today. thanks! kayleen [phone]
[2021-08-17 12:13] VITALS: BP 104/59
[2021-08-17] MEDS: normal saline 1000ml 1,000 ML IV SCH (12:17)
--- NOTE | 2021-08-17 14:36 | NUR ---
Tube Feed consult: Pt continues to receive TF at goal and tolerating well though Pt to change back to bolus feedings per MD, see updated recs below. LBM 08/13 receiving routine colace. Will continue to monitor and adjust needs as medically indicated. Recommendations: 1) Bolus TF via PEG QID at 0800, 1200, 1600, and 2000 using Jevity 1.2 w/ 410mL goal bolus. Initiate at 150ml bolus and advance by 65ml each bolus to goal as tolerated. To provide 1640mL total volume/day, 1968 kcal, 91g protein, and 1328mL water 2) Additional 40mL water flush before and after each bolus; monitor serum Na for adjustment needs- need routine labs 3) Prealbumin q Tuesday/ 4) Daily scaled weights 5) Routine bowel care; utilize PRN bowel care if pt not having routine bowel movements HOME BOLUS TF RECS: 1) Bolus TF via PEG QID using Jevity 1.5 or equivalent with goal of 375 mL. Begin at 125 mL bolus and advance by 50 mL each bolus as tolerated to goal rate 2) Additional 80 mL water flush before and after each bolus feed 3) Outpatient RD to titrate to goal rate and adjust recommendations as appropriate based on patient's estimated nutrient needs Addendum: 08/17/21 at [address] Amended: Links added.
--- NOTE | 2021-08-17 17:58 | NUR ---
Student documentation: I have reviewed all interventions, assessments performed and documented by SN Leona . Student Medication Administration: For this medication-pass time frame, all medication were reviewed, dispensed, administered and documented per hospital policy by SN Leona.
--- NOTE | 2021-08-17 18:09 | NUR ---
Problems reprioritized. Patient report given, questions answered & plan of care reviewed with Yessica. Addendum: 08/17/21 at 1817 by Leona WORTHY Correction: Report given to Ronda.
--- NOTE | 2021-08-17 18:20 | NUR ---
Patient in room GERMAN 348. I have received report from Dorita RN and assistant professor of nursing and had the opportunity to ask questions and assume patient care.
[2021-08-17 19:00] VITALS: BP 92/58
[2021-08-17] MEDS: gabapentin 300mg capsule PEG SCH (20:48)
[2021-08-17] MEDS: donepezil 5mg tablet PEG SCH (20:48)
[2021-08-18 00:17] VITALS: BP 99/57
[2021-08-18] MEDS: normal saline 1000ml 1,000 ML IV SCH ×2 (00:23→15:59)
[2021-08-18] MEDS: magnesium hydroxide 30ml (MOM) UD suspension PEG PRN ×2 (01:09→01:11)
--- NOTE | 2021-08-18 01:19 | NUR ---
This liquid norco was wasted with 2nd RN in omnicel.
[2021-08-18] MEDS: ipratropium/albuterol 3ml nebule NEB SCH ×4 (02:20→20:01)
[2021-08-18 06:07] LABS: BASOPHILS % (AUTO) 0.3 % (0-1); EOSINOPHILS # (AUTO) 0.1 X10'3 (0-0.9); EOSINOPHILS % (AUTO) 0.6 % (0-6); HEMATOCRIT 27.8 % (42.0-52.0); HEMOGLOBIN 9.2 g/dl (14.0-17.9); LYMPHOCYTES # (AUTO) 1.8 X10'3 (1.1-4.8); MEAN CORPUSCULAR HEMOGLOBIN 30.2 PG (27.0-31.0); MEAN CORPUSCULAR HGB CONC 32.9 g/dL (33.0-36.5); MEAN CORPUSCULAR VOLUME 91.6 FL (78-98); MEAN PLATELET VOLUME 7.6 FL (7.4-10.4); MONOCYTES # (AUTO) 0.6 X10'3 (0-0.9); MONOCYTES % (AUTO) 5.9 % (2-12); NEUTROPHILS % (AUTO) 74.2 % (42-75); PLATELET COUNT 405 X10'3 (140-440); RED BLOOD COUNT 3.04 X10'6 (4.70-6.10); RED CELL DISTRIBUTION WIDTH 17.6 % (11.5-14.5); WHITE BLOOD COUNT 9.5 X10'3 (4.5-11.0)
--- NOTE | 2021-08-18 06:17 | NUR ---
Problems reprioritized. Patient report given, questions answered & plan of care reviewed with Dorita MAY and nursing staffing coordinator.
[2021-08-18 06:27] LABS: ALANINE AMINOTRANSFERASE 18 U/L (12-78); ALBUMIN 1.5 G/DL (3.4-5.0); ALBUMIN/GLOBULIN RATIO 0.3 (1.1-1.5); ANION GAP 6 (8-16); ASPARTATE AMINO TRANSFERASE 13 U/L (10-37); BILIRUBIN,TOTAL 0.1 MG/DL (0.1-1.0); BLOOD UREA NITROGEN 9 MG/DL (7-18); CALCIUM 7.9 MG/DL (8.5-10.1); CHLORIDE 99 MMOL/L (99-107); CREATININE 0.29 MG/DL (0.60-1.10); GLUCOSE 91 MG/DL (70-104); POTASSIUM 3.9 MMOL/L (3.5-5.1); SODIUM 133 MMOL/L (135-145); TOTAL CARBON DIOXIDE 28.3 MMOL/L (24-32); TOTAL PROTEIN 6.3 G/DL (6.4-8.2); eGFR > 90 ML/MIN
--- NOTE | 2021-08-18 06:29 | NUR ---
Patient in room GERMAN 348. I have received report from Ronda and had the opportunity to ask questions and assume patient care.
[2021-08-18 07:03] VITALS: BP 98/64
[2021-08-18] MEDS: docusate sodium 100mg/10ml UD cup PEG SCH ×2 (07:42→20:30)
[2021-08-18] MEDS: heparin, porcine 5000 units/ml vial SQ SCH ×2 (07:42→20:32)
[2021-08-18] MEDS: folic acid 1mg tablet PEG SCH (07:42)
[2021-08-18] MEDS: lactobacillus rhamnosus 10,000 MMU CELLS/CAPSULE PEG SCH ×2 (07:42→20:30)
[2021-08-18] MEDS: oxcarbazepine 150mg tablet PEG SCH ×3 (07:43→20:31)
[2021-08-18] MEDS: phenobarbital 30mg tablet PEG SCH ×2 (07:43→20:31)
[2021-08-18] MEDS: thiamine 100mg tablet PEG SCH (07:43)
[2021-08-18] MEDS: lansoprazole 15mg solutab PEG SCH (07:43)
[2021-08-18] MEDS: K and/or MAG REPLACEMENT MC SCH (08:00)
[2021-08-18 11:14] VITALS: BP 105/67
[2021-08-18] MEDS ORDERED: guaiFENesin 200 MG/10 ML oral syrup UD cup PO PRN (13:30)
--- NOTE | 2021-08-18 17:58 | NUR ---
Student documentation: I have reviewed all interventions, assessments performed and documented by SN Leona. Student Medication Administration: For this medication-pass time frame, all medication were reviewed, dispensed, administered and documented per hospital policy by SN Leona.
[2021-08-18 18:00] VITALS: BP 101/64
--- NOTE | 2021-08-18 18:20 | NUR ---
Patient in room GERMAN 348. I have received report from Dorita MAY and her occupational health nursing director and had the opportunity to ask questions and assume patient care.
[2021-08-18] MEDS: donepezil 5mg tablet PEG SCH (20:30)
[2021-08-18] MEDS: gabapentin 300mg capsule PEG SCH (20:31)
[2021-08-18] MEDS: HYDROcodone/acetaminophen 7.5MG/325MG per 15ml UD CUP PEG PRN (20:53)
--- NOTE | 2021-08-19 | NUR ---
I reviewed physical assessment documentation by nursing tech Keyla from earlier in the shift and agree with all findings. Addendum: 08/19/21 at 0646 by Ronda Varela RN For this time frame, all medications were issued by nursing tech with her nursing aide.
[2021-08-19 00:09] VITALS: BP 90/57
[2021-08-19] MEDS: HYDROcodone/acetaminophen 7.5MG/325MG per 15ml UD CUP PEG PRN ×2 (01:19→06:05)
[2021-08-19] MEDS: ipratropium/albuterol 3ml nebule NEB SCH ×4 (03:00→20:44)
--- NOTE | 2021-08-19 06:00 | NUR ---
Patient in room GERMAN 348. I have received report from YADIRA Arrington and had the opportunity to ask questions and assume patient care.
--- NOTE | 2021-08-19 06:15 | NUR ---
Problems reprioritized. Patient report given, questions answered & plan of care reviewed with Dorita MAY and clinical nursing manager .
[2021-08-19 07:54] LABS: ALANINE AMINOTRANSFERASE 21 U/L (12-78); ALBUMIN 1.5 G/DL (3.4-5.0); ALBUMIN/GLOBULIN RATIO 0.3 (1.1-1.5); ANION GAP 6 (8-16); ASPARTATE AMINO TRANSFERASE 16 U/L (10-37); BILIRUBIN,TOTAL 0.1 MG/DL (0.1-1.0); BLOOD UREA NITROGEN 8 MG/DL (7-18); BUN/CREATININE RATIO 23.5 (5.4-32.0); CALCIUM 7.7 MG/DL (8.5-10.1); CHLORIDE 101 MMOL/L (99-107); CREATININE 0.34 MG/DL (0.60-1.10); GLUCOSE 89 MG/DL (70-104); SODIUM 135 MMOL/L (135-145); TOTAL PROTEIN 6.2 G/DL (6.4-8.2); eGFR > 90 ML/MIN
[2021-08-19] MEDS: thiamine 100mg tablet PEG SCH (07:58)
[2021-08-19] MEDS: lactobacillus rhamnosus 10,000 MMU CELLS/CAPSULE PEG SCH ×2 (07:58→20:31)
[2021-08-19] MEDS: docusate sodium 100mg/10ml UD cup PEG SCH ×2 (07:58→20:30)
[2021-08-19] MEDS: lansoprazole 15mg solutab PEG SCH (07:59)
[2021-08-19] MEDS: oxcarbazepine 150mg tablet PEG SCH ×3 (07:59→20:31)
[2021-08-19] MEDS: phenobarbital 30mg tablet PEG SCH ×2 (07:59→20:30)
[2021-08-19] MEDS: folic acid 1mg tablet PEG SCH (07:59)
[2021-08-19] MEDS: heparin, porcine 5000 units/ml vial SQ SCH ×2 (08:00→20:33)
[2021-08-19 08:30] VITALS: BP 113/60
[2021-08-19 09:36] LABS: BASOPHILS # (AUTO) 0.1 X10'3 (0-0.2); BASOPHILS % (AUTO) 0.9 % (0-1); EOSINOPHILS # (AUTO) 0.1 X10'3 (0-0.9); EOSINOPHILS % (AUTO) 1.1 % (0-6); HEMATOCRIT 29.5 % (42.0-52.0); HEMOGLOBIN 9.7 g/dl (14.0-17.9); LYMPHOCYTES % (AUTO) 22.3 % (21-51); MEAN CORPUSCULAR HEMOGLOBIN 30.1 PG (27.0-31.0); MEAN CORPUSCULAR HGB CONC 32.7 g/dL (33.0-36.5); MEAN PLATELET VOLUME 7.6 FL (7.4-10.4); MONOCYTES # (AUTO) 0.5 X10'3 (0-0.9); MONOCYTES % (AUTO) 5.4 % (2-12); NEUTROPHILS # (AUTO) 6.2 X10'3 (1.8-7.7); NEUTROPHILS % (AUTO) 70.3 % (42-75); PLATELET COUNT 282 X10'3 (140-440); RED BLOOD COUNT 3.21 X10'6 (4.70-6.10); RED CELL DISTRIBUTION WIDTH 17.3 % (11.5-14.5); WHITE BLOOD COUNT 8.8 X10'3 (4.5-11.0)
[2021-08-19 10:54] VITALS: BP 103/64
[2021-08-19] MEDS ORDERED: mineral oil/petrolatum, white cream 113gm jar TP PRN (13:35)
[2021-08-19 16:31] VITALS: BP 108/69
[2021-08-19 20:00] VITALS: BP 111/74
[2021-08-19] MEDS: gabapentin 300mg capsule PEG SCH (20:31)
[2021-08-19] MEDS: donepezil 5mg tablet PEG SCH (20:31)
[2021-08-19] MEDS: normal saline 1000ml 1,000 ML IV SCH (20:33)
--- NOTE | 2021-08-19 22:48 | NUR ---
Student Medication Administration: For this medication-pass time frame, all medication were reviewed, dispensed, administered and documented per hospital policy by LYRIC Medrano and Ashkan GUNTER [facility].
[2021-08-20] VITALS: BP 103/66
[2021-08-20] MEDS: ipratropium/albuterol 3ml nebule NEB SCH ×2 (02:25→08:00)
[2021-08-20 06:24] LABS: BASOPHILS % (AUTO) 0.4 % (0-1); EOSINOPHILS # (AUTO) 0.1 X10'3 (0-0.9); EOSINOPHILS % (AUTO) 0.9 % (0-6); HEMATOCRIT 29.5 % (42.0-52.0); HEMOGLOBIN 9.9 g/dl (14.0-17.9); LYMPHOCYTES # (AUTO) 1.4 X10'3 (1.1-4.8); LYMPHOCYTES % (AUTO) 15.1 % (21-51); MEAN CORPUSCULAR HEMOGLOBIN 30.5 PG (27.0-31.0); MEAN CORPUSCULAR HGB CONC 33.4 g/dL (33.0-36.5); MEAN CORPUSCULAR VOLUME 91.1 FL (78-98); MEAN PLATELET VOLUME 7.1 FL (7.4-10.4); MONOCYTES # (AUTO) 0.6 X10'3 (0-0.9); MONOCYTES % (AUTO) 6.8 % (2-12); NEUTROPHILS # (AUTO) 7.1 X10'3 (1.8-7.7); NEUTROPHILS % (AUTO) 76.8 % (42-75); PLATELET COUNT 402 X10'3 (140-440); RED BLOOD COUNT 3.24 X10'6 (4.70-6.10); RED CELL DISTRIBUTION WIDTH 17.2 % (11.5-14.5); WHITE BLOOD COUNT 9.2 X10'3 (4.5-11.0)
--- NOTE | 2021-08-20 06:36 | NUR ---
Patient in room GERMAN 348A I have received report from MICHEL MAY and had the opportunity to ask questions and assume patient care.
[2021-08-20 06:48] LABS: ALANINE AMINOTRANSFERASE 25 U/L (12-78); ALBUMIN 1.6 G/DL (3.4-5.0); ALBUMIN/GLOBULIN RATIO 0.3 (1.1-1.5); ANION GAP 5 (8-16); ASPARTATE AMINO TRANSFERASE 16 U/L (10-37); BILIRUBIN,TOTAL 0.1 MG/DL (0.1-1.0); BLOOD UREA NITROGEN 8 MG/DL (7-18); BUN/CREATININE RATIO 22.9 (5.4-32.0); CHLORIDE 101 MMOL/L (99-107); CREATININE 0.35 MG/DL (0.60-1.10); GLUCOSE 104 MG/DL (70-104); PREALBUMIN 13.6 MG/DL (19-36); SODIUM 133 MMOL/L (135-145); TOTAL CARBON DIOXIDE 27.3 MMOL/L (24-32); TOTAL PROTEIN 6.6 G/DL (6.4-8.2); eGFR > 90 ML/MIN
[2021-08-20 07:04] LABS: ALKALINE PHOSPHATASE 82 IU/L (46-116)
[2021-08-20] MEDS: docusate sodium 100mg/10ml UD cup PEG SCH (07:53)
[2021-08-20] MEDS: folic acid 1mg tablet PEG SCH (07:53)
[2021-08-20] MEDS: phenobarbital 30mg tablet PEG SCH (07:54)
[2021-08-20] MEDS: heparin, porcine 5000 units/ml vial SQ SCH (07:54)
[2021-08-20] MEDS: oxcarbazepine 150mg tablet PEG SCH (07:54)
[2021-08-20] MEDS: lactobacillus rhamnosus 10,000 MMU CELLS/CAPSULE PEG SCH (07:54)
[2021-08-20] MEDS: lansoprazole 15mg solutab PEG SCH (07:54)
[2021-08-20] MEDS: thiamine 100mg tablet PEG SCH (08:00)
[2021-08-20] MEDS ORDERED: metoclopramide 10mg tablet PO PRN (10:00)
--- NOTE | 2021-08-20 15:15 | NUR ---
Transport company returned pt to [facility] by transport company d/t pt was "drooling" and they didn't have "suction", the catheter was leaking (condom catheter). DREW Dao, Nacho Edwards Thermal Cutter Helper, and primary RN, Connor, were notified. Transport van arrived to hospital parking lot, and, per MD orders d/t 4 hrs w/o dietary intake or fluids, YADIRA Ryan gave pt Jevity(237cc) and 80cc free water (40cc before and after Jevity) for hydration and nutritional support during transport. Condom Cath was not removed, as it had not leaked and a diaper was present on pt over the , which was also dry, contrary to the report prior to the transport team returning to [facility]. YADIRA Dao, provided transport team w/ a portable suction, per transport team request.
--- NOTE | 2021-08-20 16:20 | NUR ---
@ 1530 pt arrived back on [facility] unit on a gurney accompanied by transport staff. According to transport team they were directed by [facility] to return the pt to [facility], and they would be arranging another transport company to transport patient. Nacho Edwards Security Support Analyst, and YADIRA Dao aware.
== END 2021-08-20 12:16 | DRG 871 ==
LOC: ER 21:47 → ED HOLD 06-13 00:30 → MED 3N 06-13 16:00 → PCU 3S 07-15 17:48 → SUR 3N 08-16 23:13
PROVIDERS: ADMIT Family Medicine; ATTEND Family Medicine
PROC: B32T1ZZ Computerized Tomography (CT Scan) of Left Pulmonary Artery using Low Osmolar Contrast (ICD-10-PCS; 2021-06-19)
PROC: B3201ZZ Computerized Tomography (CT Scan) of Thoracic Aorta using Low Osmolar Contrast (ICD-10-PCS; 2021-06-19)
PROC: B32S1ZZ Computerized Tomography (CT Scan) of Right Pulmonary Artery using Low Osmolar Contrast (ICD-10-PCS; 2021-06-19)
PROC: 0W9B30Z Drainage of Left Pleural Cavity with Drainage Device, Percutaneous Approach (ICD-10-PCS; 2021-06-20)
PROC: BW241ZZ Computerized Tomography (CT Scan) of Chest and Abdomen using Low Osmolar Contrast (ICD-10-PCS; 2021-06-25)
PROC: 0DH63UZ Insertion of Feeding Device into Stomach, Percutaneous Approach (ICD-10-PCS; principal; 2021-06-26)
PROC: 05HY33Z Insertion of Infusion Device into Upper Vein, Percutaneous Approach (ICD-10-PCS; 2021-08-12)
DX: A41.9 Sepsis, unspecified organism (principal); J96.01 Acute respiratory failure with hypoxia; E43 Unspecified severe protein-calorie malnutrition; J69.0 Pneumonitis due to inhalation of food and vomit; I50.33 Acute on chronic diastolic (congestive) heart failure; J86.9 Pyothorax without fistula; J44.1 Chronic obstructive pulmonary disease with (acute) exacerbation; S22.32XA Fracture of one rib, left side, initial encounter for closed fracture; S27.0XXA Traumatic pneumothorax, initial encounter; Z68.1 Body mass index [BMI] 19.9 or less, adult; J94.8 Other specified pleural conditions; W18.39XA Other fall on same level, initial encounter; D63.8 Anemia in other chronic diseases classified elsewhere; F03.90 Unspecified dementia, unspecified severity, without behavioral disturbance, psychotic disturbance, mood disturbance, and anxiety; F17.210 Nicotine dependence, cigarettes, uncomplicated; G40.909 Epilepsy, unspecified, not intractable, without status epilepticus; R13.12 Dysphagia, oropharyngeal phase; R29.6 Repeated falls; G31.09 Other frontotemporal neurocognitive disorder; F02.80 Dementia in other diseases classified elsewhere, unspecified severity, without behavioral disturbance, psychotic disturbance, mood disturbance, and anxiety; Z20.822 Contact with and (suspected) exposure to COVID-19; Z53.20 Procedure and treatment not carried out because of patient's decision for unspecified reasons; Z86.16 Personal history of COVID-19; Z99.81 Dependence on supplemental oxygen; Z91.19 Patient's noncompliance with other medical treatment and regimen; Z79.899 Other long term (current) drug therapy; Z79.82 Long term (current) use of aspirin; I69.331 Monoplegia of upper limb following cerebral infarction affecting right dominant side; I69.322 Dysarthria following cerebral infarction; Y93.89 Activity, other specified; Y92.89 Other specified places as the place of occurrence of the external cause; Y99.8 Other external cause status
CPT/HCPCS: 32557; 36410; 36415; 43246; 71045; 71101; 71260; 71275; 73110; 80048; 80053; 80061; 80156; 80202; 81001; 82550; 82945; 82948; 83036; 83605; 83615; 83690; 83735; 83880; 83986; 84100; 84132; 84134; 84145; 84157; 84443; 85007; 85025; 85610; 85730; 87040; 87070; 87081; 87088; 87635; 89051; 92508; 92616; 93005; 93308; 94640; 94667; 94668; 94760; 97110; 97112; 97116; 97161; 97530; 97535; 99152; 99285; A4620; B4087; C9803; G0378; J0456; J0692; J0696; J1644; J1815; J1885; J1940; J1953; J2250; J2270; J2405; J2543; J2920; J2930; J3010; J3370; J3490; J7030; J7040; J7042; J7050; J7512; Q9967